=== PATIENT | female | born 1950 | race Caucasian/White ===

== ENCOUNTER 2016-07-11 21:11 | Emergency (ER) | payer MEDICARE ==
--- NOTE | 2016-07-11 21:45 | ERPHSYRPT ---
- History of Present Illness Time Seen by Provider: 07/11/16 21:29 Source: patient Patient Subjective Stated Complaint: Pt was seen at [facility] for HTN and fall. Pt was discharged, sts when she got home she could not get in the house so she called the ambulance because she "could not get my feet to work". Sts unable to walk into house with granddaughters assistance. Sts weakness since last night. Sts unable to pick her feet up to walk. No new complaints since discharge from [facility]. Sts headache 05/30, which is "normal for her". Sts has been out of blood pressure medication x 6 weeks. Triage Nursing Assessment: Pt alert, oriented, answers all questions appropriately. Skin p/w/d, resps non-labored. Speaking in full sentences without difficulty. Follows all commands. Physician History: This is a 66-year-old white female with history of diverticulitis, diabetes She arrives via medics According to the patient she was at her home this morning she fell hit her head on the refrigerator he states that she's been having weakness of her lower extremities since falling and hitting her head. She was seen at [facility] given medicines for high blood pressure, apparently clonidine she states that she had just left [facility] had taken an ambulance to her home was trying to get in the house and could not get into it she was unable to get in the house with assistance from her granddaughter. She states she feels weak on her lower extremities she states that this has been going on since this morning. She is not having problems moving any of her extremities she is not having any problems speaking. She is noted to have an elevated blood pressure she states that she does not have any blood pressure medications at home and is unable to get them. Patient does state she has a headache. Past medical history includes diabetes, diverticulitis. Past surgical history includes appendectomy, cholecystectomy, colon severe resection, hysterectomy. Timing/Duration: today (patient fell at home states she is weak in her lower extremities seen at [facility], treated for high blood pressure released. Unable to get into her house when returning home.) Severity: moderate Modifying Factors: Improves With: nothing Associated Symptoms: headaches, weakness (weakness lower extremities), No nausea , No vomiting, No abdominal pain, No shortness of breath, No heartburn, No diaphoresis, No cough, No chills, No chest pain, No fever, No loss of appetite, No malaise, No rash, No syncope, No seizure Allergies/Adverse Reactions: diazepam [From Valium] Allergy (Mild, Verified 07/11/16 21:20) penicillin Allergy (Mild, Verified 07/11/16 21:20) Home Medications: Furosemide [Lasix] 0 mg PO DAILY 09/14/14 [History] Metformin HCl [Fortamet] 0 mg PO DAILY 09/14/14 [History] Verapamil HCl [Verapamil ER] 180 mg PO DAILY 09/14/14 [History] Hx Tetanus, Diphtheria Vaccination/Date Given: No Hx Influenza Vaccination/Date Given: No Hx Pneumococcal Vaccination/Date Given: No Immunizations Up to Date: Yes - Review of Systems Constitutional: Weakness (weakness lower extremities no problems moving or speaking), No Fever, No Chills Eyes: No Symptoms, No Discharge, No Eye Pain, No Eye Redness, No Itchy, No Photophobia, No Tearing, No Vision Changes, No Double Vision, No Foreign Body Sensation Ears, Nose, & Throat: No Symptoms Respiratory: No Cough, No Dyspnea Abdominal/Gastrointestinal: No Abdominal Pain, No Nausea, No Vomiting, No Diarrhea Genitourinary Symptoms: No Dysuria Musculoskeletal: No Back Pain, No Neck Pain Skin: No Rash Neurological: Focal Weakness (weak lower extremities no problems moving or speaking), Headache, No Dizziness, No Gait Changes, No Irritability, No Lethargy , No Paralysis, No Parasthesia, No Seizure, No Sensory Changes, No Speech Changes, No Tics, No Tremors, No Vertigo Psychological: No Symptoms Endocrine: No Symptoms All Other Systems: Reviewed and Negative - Past Medical History Pertinent Past Medical History: Yes Cardiac History: High Cholesterol, Hypertension, Other Endocrine Medical History: Diabetes Type II GI Medical History: Diverticulitis - Past Surgical History Past Surgical History: Yes Gastrointestinal: Appendectomy, Cholecystectomy, Colon Resection Female Surgical History: Hysterectomy - Social History Smoking Status: Never smoker Exposure to second hand smoke: No Drug Use: none Patient Lives Alone: Yes - Nursing Vital Signs Nursing Vital Signs: Initial Vital Signs Temperature 97.9 F Temperature Source Oral Pulse Rate 74 Respiratory Rate 16 Blood Pressure [Left Arm] 175/112 Pain Intensity 4 - Physical Exam General Appearance: other (elderly obese white female alert oriented x 3) Eye Exam: PERRL/EOMI, eyes nml inspection Ears, Nose, Throat Exam: normal ENT inspection, TMs normal, pharynx normal, moist mucous membranes Neck Exam: normal inspection, non-tender, supple, full range of motion Respiratory Exam: normal breath sounds, lungs clear, No respiratory distress Cardiovascular Exam: regular rate/rhythm, normal heart sounds, normal peripheral pulses Gastrointestinal/Abdomen Exam: soft, normal bowel sounds, No tenderness, No mass Back Exam: normal inspection, normal range of motion, No CVA tenderness, No vertebral tenderness Extremity Exam: normal inspection, normal range of motion, pelvis stable Neurologic Exam: alert, oriented x 3, cooperative, normal mood/affect, nml cerebellar function, nml station & gait, sensation nml, No motor deficits Skin Exam: normal color, warm, dry, No rash Lymphatic Exam: No adenopathy SpO2 Interpretation: normal (97%) SpO2: 97 Oxygen Delivery: Room Air - Course Nursing assessment & vital signs reviewed: Yes Ordered Tests: Active Orders 24 hr Category Date Time Status Accucheck STAT Care 07/11/16 21:46 Active EKG-ER Only STAT Care 07/11/16 21:45 Active IV Insertion STAT Care 07/11/16 21:45 Active CBC W DIFF Stat Lab 07/11/16 22:00 Completed CMP Stat Lab 07/11/16 22:00 Completed TROPONIN Stat Lab 07/11/16 22:00 Completed Medication Summary Discontinued Medications Generic Name Dose Route Start Last Admin Trade Name Freq PRN Reason Stop Dose Admin Sodium Chloride 1,000 mls @ 50 mls/hr 07/11/16 22:00 07/11/16 21:56 Sodium Chloride 0.9% 1000 Ml IV 08/10/16 21:59 50 mls/hr .Q20H DELBERT Administration Sodium Chloride Confirm 07/11/16 21:54 Sodium Chloride 0.9% 1000 Ml Administered 07/11/16 21:55 Dose 1,000 mls @ ud .ROUTE .STK-MED ONE Potassium Chloride 40 meq 07/11/16 23:10 07/11/16 23:21 Klor Con 10 Meq PO 07/11/16 23:11 40 meq STAT ONE Administration Potassium Chloride Confirm 07/11/16 23:20 Klor Con 10 Meq Administered 07/11/16 23:21 Dose 40 meq PO .STK-MED ONE Lab/Rad Data: Laboratory Result Diagrams 07/11/16 22:00 07/11/16 22:00 Laboratory Results 07/11/16 07/11/16 Range/Units 22:00 22:00 WBC 12.5 H (4.0-10.5) K/mm3 RBC 4.97 (4.1-5.4) M/mm3 Hgb 14.0 (12.0-16.0) gm/dl Hct 42.1 (35-47) % MCV 84.7 (78-100) fl MCH 28.2 (26-32) pg MCHC 33.3 (32-36) g/dl RDW 14.3 H (11.5-14.0) % Plt Count 322 (150-450) K/mm3 MPV 10.3 H (6-9.5) fl Gran % 77.1 H (36.0-66.0) % Lymphocytes % 16.0 L (24.0-44.0) % Monocytes % 5.6 (0.0-12.0) % Eosinophils % 1.1 (0.00-5.0) % Basophils % 0.2 (0.0-0.4) % Basophils # 0.03 (0-0.4) Sodium 141 (136-145) mEq/L Potassium 3.1 L (3.5-5.1) mEq/L Chloride 100 (98-107) mEq/L Carbon Dioxide 29.0 (21-32) mEq/L Anion Gap 15.1 H (5-15) MEQ/L BUN 9 (9-20) mg/dL Creatinine 0.94 (0.55-1.30) mg/dl Estimated GFR > 60 ML/MIN Glucose 178 H (70-110) MG/DL Calcium 9.6 (8.5-10.1) mg/dL Total Bilirubin 0.8 (0.2-1.0) mg/dL AST 35 (15-37) U/L ALT 33 (12-78) U/L Alkaline Phosphatase 100 (46-116) U/L Troponin I < 0.017 (0.000-0.056) ng/ml Serum Total Protein 7.1 (6.4-8.2) gm/dL Albumin 3.6 (3.4-5.0) g/dL - Progress Progress: improved Progress Note: 07/11/16 21:44 This is a 66-year-old white female she was seen at [facility] ER today secondary to a fall she is having bilateral lower extremity weakness which has been going on since this morning she states that she was treated for her high blood pressure at the [facility] labs and head CT were obtained. Patient was discharged in when the patient went to get into her house she is unable to get into her house even with help from her granddaughter. Patient states she feels weak in in her lower legs. She is not having any problems moving she has a normal neurologic exam. She does have elevated blood pressure. Will go ahead and obtain labs from [facility] Will obtain repeat the EKG CBC CMP. Will obtain head CT results from [facility]. 07/11/16 23:03 Patient's labs are reviewed from [facility] head CT was unremarkable chest x-ray was unremarkable. will be given potassium patient was noted have a potassium of 3.1 otherwise chemistry essentially normal troponin was within normal limits CBC essentially normal EKG normal sinus rhythm [address] or T wave changes are noted. Patient's blood pressure improved with time patient had been given some clonidine at [facility]. I've discussed the patient's case with Dr. Harris the patient's family doctor he will accept the patient for transfer at [facility]. Diagnosis Will be weakness. Accidental fall with head contusion. Lower extremity weakness. Hypertension. Patient's blood pressure slowly improve therefore further blood pressure medications was not given in this emergency room. - Departure Time of Disposition: 23:05 Departure Disposition: Transfer ([facility], Dr Harris) Clinical Impression: Weakness, Bilateral leg weakness Accidental fall Qualifiers: Encounter type: initial encounter Qualified Code(s): W19.XXXA - Unspecified fall, initial encounter Head contusion Qualifiers: Encounter type: subsequent encounter Contusion of head detail: unspecified part of head Qualified Code(s): S00.93XD - Contusion of unspecified part of head , subsequent encounter Hypertension Qualifiers: Hypertension type: unspecified secondary hypertension Qualified Code(s): I15.9 - Secondary hypertension, unspecified Condition: Fair Critical Care Time: No Referrals: KVNG HARRIS [Primary Care Provider] -
[2016-07-11] MEDS ORDERED: Sodium Chloride 0.9% 1000 ML 1,000 ML ONE (21:54)
[2016-07-11] MEDS ORDERED: Sodium Chloride 0.9% 1000 ML 1,000 ML IV SCH (22:00)
[2016-07-11 22:03] LABS: BASOPHIL % 0.2 % (0.0-0.4); Eosinophil % 1.1 % (0.00-5.0); Granulocytes % 77.1 % (36.0-66.0); Mean Cell Volume 84.7 fl (78-100); Mean Corpuscular Hemoglobin 28.2 pg (26-32); Mean Platelet Volume 10.3 fl (6-9.5); Monocytes % 5.6 % (0.0-12.0); Platelet Count 322 K/mm3 (150-450); Red Blood Count 4.97 M/mm3 (4.1-5.4); Red Cell Distribution Width 14.3 % (11.5-14.0); White Blood Count 12.5 K/mm3 (4.0-10.5)
[2016-07-11 22:27] LABS: ALBUMIN 3.6 g/dL (3.4-5.0); ALKALINE PHOSPHATASE 100 U/L (46-116); ANION GAP 15.1 MEQ/L (5-15); BILIRUBIN,TOTAL 0.8 mg/dL (0.2-1.0); BLOOD UREA NITROGEN 9 mg/dL (9-20); CHLORIDE 100 mEq/L (98-107); Glucose 178 MG/DL (70-110); Potassium 3.1 mEq/L (3.5-5.1); SGOT/AST 35 U/L (15-37); SGPT/ALT 33 U/L (12-78); SODIUM 141 mEq/L (136-145); Total Protein 7.1 gm/dL (6.4-8.2)
[2016-07-11 22:30] LABS: TROPONIN < 0.017 ng/ml (0.000-0.056)
[2016-07-11] MEDS ORDERED: Klor Con 10 MEQ PO ONE ×2 (23:10→23:20)
[2016-07-11 23:39] VITALS: BP 175/112; PULSE 74
[2016-07-12 00:05] VITALS: O2SAT 97
== END 2016-07-11 23:40 | disposition short-term general hospital (02) ==
LOC: ED 21:11
DX: S00.93XD Contusion of unspecified part of head, subsequent encounter (principal); W01.198D Fall on same level from slipping, tripping and stumbling with subsequent striking against other object, subsequent encounter; I10 Essential (primary) hypertension; R53.1 Weakness; R51 Headache; E78.00 Pure hypercholesterolemia, unspecified; E11.9 Type 2 diabetes mellitus without complications
CPT/HCPCS: 36000; 36415; 80053; 82962; 84484; 85025; 93005; 96360; 96361; 99285; A9270-GY

== ENCOUNTER 2020-01-01 20:06 | Emergency (ER) | payer MEDICARE ==
[2020-01-01] MEDS ORDERED: Sodium Chloride 0.9% 1000 ML 1,000 ML IV STA (20:41)
[2020-01-01] MEDS ORDERED: ROCEPHIN 1 Gm-D5w 50 ml Bag** 1 G/50 ML IVPB IV ONE ×2 (21:01→21:04)
[2020-01-01] MEDS ORDERED: Sodium Chloride 0.9% 1000 ML 1,000 ML ONE ×2 (21:04→23:14)
--- NOTE | 2020-01-01 21:04 | ERPHSYRPT ---
- History of Present Illness Source: patient, EMS Exam Limitations: clinical condition Patient Subjective Stated Complaint: Patient's son called EMS and told EMS that he had just got home and that patient was on floor on butt with back against her chair". Patient told son she slid out of chair earlier today but not sure what time and that her back was hurting". Triage Nursing Assessment: Patient arrived via ambulance. Patient alert and very NE[place]. 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 Patient unable to tell RN what meds she takes and when the last time she took meds. Lungs diminshed A/P throughout. + BS times 4 quads. ABD large, obese, non- distended. Patient denies pain or discomfort upon palpitation. Non-pitting edema noted to bilateral extremities. Patient very dirty upon arrival. Patient's feet black and dirty. Patient noted with blanchable red area to outside of right ankle. Patient's bottom red in color. Patient noted with odor. Patient had pull up on that was saturated with urine and BM. Patient's ROM to upper and lower e xtremities decreased which patient says is her normal. Upon inspection of back, no bruising, redness or abnormalities noted. Patient stated she does have tenderness when RN touched. + radial and pedal pulses noted. Patient denies SOB/chest pain. No S/S of respiratory distress noted. Oral mucosa dirty, dry. Skin turgor < 4 seconds. Cap refill < 3 seconds. Patient denies any further pain or discomfort. Bilateral pupils brisk and reactive to light. 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 Physician History: Patient is a 69-year-old female who was brought in by ambulance for fall. Patient was found on the ground by her son who called 911. Unsure how long patient has been on the ground. Appears patient was extremely disheveled and dirty. It appears that patient has not bathed or showered in a very long time. Patient would occasionally answer questions which might be difficult for her due to her hard of hearing. Patient appears confused but is alert. Occurred: just prior to arrival Reason for Fall: unknown Injuries/Pain Location: back Loss of Consciousness: unsure Quality: aching Modifying Factors: Improves With: movement Associated Symptoms (Fall): denies symptoms Allergies/Adverse Reactions: diazepam [From Valium] Allergy (Mild, Verified 01/01/20 21:00) penicillin Allergy (Mild, Verified 01/01/20 21:00) Home Medications: Furosemide [Lasix] 0 mg PO DAILY 09/14/14 [History] Metformin HCl [Fortamet] 0 mg PO DAILY 09/14/14 [History] Verapamil HCl [Verapamil ER] 180 mg PO DAILY 09/14/14 [History] Hx Tetanus, Diphtheria Vaccination/Date Given: No Hx Influenza Vaccination/Date Given: No Hx Pneumococcal Vaccination/Date Given: No Immunizations Up to Date: Yes Travel Risk - International Travel Have you traveled outside of the country in past 3 weeks: No - Coronavirus Screening Are you exhibiting any of the following symptoms?: No Close contact with a COVID-19 positive Pt in past 14-21 Days: No - Review of Systems Constitutional: No Fever, No Chills Eyes: No Symptoms Ears, Nose, & Throat: No Symptoms Respiratory: No Cough, No Dyspnea Cardiac: No Chest Pain, No Edema, No Syncope Abdominal/Gastrointestinal: No Abdominal Pain, No Nausea, No Vomiting, No Diarrhea Genitourinary Symptoms: No Dysuria Musculoskeletal: Back Pain, Myalgias, No Neck Pain Skin: No Rash Neurological: Headache, No Dizziness, No Focal Weakness, No Sensory Changes Psychological: No Symptoms Endocrine: No Symptoms All Other Systems: Reviewed and Negative - Past Medical History Pertinent Past Medical History: Yes Neurological History: No Pertinent History ENT History: No Pertinent History Cardiac History: High Cholesterol, Hypertension, Other Respiratory History: No Pertinent History Endocrine Medical History: Diabetes Type II Musculoskeletal History: No Pertinent History GI Medical History: Diverticulitis History: No Pertinent History Psycho-Social History: No Pertinent History Female Reproductive Disorders: No Pertinent History - Past Surgical History Past Surgical History: Yes Neuro Surgical History: No Pertinent History Cardiac: No Pertinent History Respiratory: No Pertinent History Gastrointestinal: Appendectomy, Cholecystectomy, Colon Resection Genitourinary: No Pertinent History Musculoskeletal: No Pertinent History Female Surgical History: Hysterectomy - Social History Smoking Status: Never smoker Exposure to second hand smoke: No Drug Use: none Patient Lives Alone: No - Female History Hx Last Menstrual Period: POST - Nursing Vital Signs Nursing Vital Signs: Initial Vital Signs Temperature 100.0 F 01/01/20 20:15 Pulse Rate 118 H 01/01/20 20:15 Respiratory Rate 22 01/01/20 20:15 Blood Pressure 194/94 01/01/20 20:15 O2 Sat by Pulse Oximetry 95 01/01/20 20:15 Pain Scale Pain Intensity 4 - [place] Coma Score Best Eye Response (Sabina): (4) open spontaneously Best Verbal Response ([place]): (4) confused conversation Best Motor Response (Sabina): (6) obeys commands Sabina Total: 14 - Physical Exam General Appearance: mild distress, alert Head Injury: no evidence of injury Eye Exam: PERRL/EOMI ENT Exam: airway nml Neck Exam: normal inspection, No tenderness Respiratory/Chest Exam: normal breath sounds, No chest tenderness, No respiratory distress Cardiovascular Exam: normal heart sounds, regular rate/rhythm Gastrointestinal Exam: soft, No tenderness, No distention, No guarding, No ecchymosis Back Exam: normal inspection, No vertebral tenderness Extremity Exam: normal inspection, normal range of motion, pelvis stable, No deformities Neurologic Exam: alert, oriented x 3, cooperative, sensation nml, No motor deficits Skin Exam: normal color, warm, dry SpO2 Interpretation: normal SpO2: 95 - Course Nursing assessment & vital signs reviewed: Yes EKG Interpreted by Me: Sinus Tach ([id number]), NORMAL AXIS, NORMAL INTERVALS, NORMAL QRS, Non-specific ST Changes - CT Exams Head CT Interpretation: Tele-radiologist Report, No/Intracranial Hemorrhag, Other (Infarcted area of the left MCA distribution is a possibility versus rotation of head and possible volume depletion.) Cervical Spine CT Interpretation: Tele-radiologist Report, No Fracture Chest CT Interpretation: Tele-radiologist Report, Other (Couple right upper lobe pulmonary emboli and suspected small right middle and lower lobe PE) Abdomen/Pelvis CT Interpretation: Tele-radiologist Report, Normal Appendix, No appendicitis Ordered Tests: Active Orders 24 hr Category Date Time Status Chiller Tender STAT Care 01/01/20 21:35 Active EKG-ER Only STAT Care 01/01/20 20:41 Active Guzmán [Catheter-[place] Guzmán] STAT Care 01/01/20 21:35 Active IV Insertion STAT Care 01/01/20 20:41 Active IV Insertion-2nd Peripheral STAT Care 01/01/20 21:35 Active ABDOMEN AND PELVIS W CONTRAST [CT] Stat Exams 01/01/20 20:45 Taken CERVICAL SPINE WO CONTRAST [CT] Stat Exams 01/01/20 20:43 Taken CHEST WITH CONTRAST [CT] Stat Exams 01/01/20 20:45 Taken HEAD WITHOUT CONTRAST [CT] Stat Exams 01/01/20 20:43 Taken BLOOD CULTURE Stat Lab 01/01/20 21:20 Received CBC W DIFF Stat Lab 01/01/20 21:30 Completed CK (IN-HOUSE) [CK-Creatinine Phosphokinase] Stat Lab 01/01/20 21:30 Completed CMP Stat Lab 01/01/20 21:30 Completed CULTURE,URINE Stat Lab 01/01/20 21:33 Received D-DIMER QUANTITATIVE Stat Lab 01/01/20 21:30 Completed INFLUENZA A+B JAS Stat Lab 01/01/20 23:15 Completed LIPASE Stat Lab 01/01/20 21:30 Completed Lactic Acid Stat Lab 01/01/20 21:23 Completed PROTIME WITH INR Stat Lab 01/01/20 21:30 Completed PTT Stat Lab 01/01/20 21:30 Completed TROPONIN Q3H Lab 01/01/20 21:00 Completed UA W/RFX UR CULTURE Stat Lab 01/01/20 21:33 Completed Medication Summary Generic Name Dose Route Start Last Admin Trade Name Rob PRN Reason Stop Dose Admin Sodium Chloride 1,000 mls @ 175 mls/hr 01/01/20 23:00 01/01/20 23:16 Sodium Chloride 0.9% 1000 Ml IV 01/31/20 22:59 175 mls/hr .Q5H43M DELBERT Administration Heparin Sodium/Dextrose 25,000 units in 250 mls @ 25 mls/hr 01/02/20 02:00 01/02/20 02:04 Heparin 25,000 Units/D5w 250ml Premix IV 02/01/20 01:59 25 mls/hr .Q10H DELBERT 25 mls/hr Administration Discontinued Medications Generic Name Dose Route Start Last Admin Trade Name Rob PRN Reason Stop Dose Admin Acetaminophen 975 mg 01/01/20 22:58 01/01/20 23:03 Feverall 650 Mg AR 01/01/20 22:59 975 mg STAT ONE Administration Acetaminophen Confirm 01/01/20 23:02 Feverall 650 Mg Administered 01/01/20 23:03 Dose 1,300 mg .ROUTE .STK-MED ONE Heparin Sodium (Beef Lung) Confirm 01/02/20 01:52 Heparin Lock Flush 100 Units/Ml 5ml Syringe Administered 01/02/20 01:53 Dose 1,000 units .ROUTE .STK-MED ONE Heparin Sodium (Beef Lung) Confirm 01/02/20 02:08 Heparin 5000 Units/0.5 Ml (High Risk Med) Administered 01/02/20 02:09 Dose 5,000 unit .ROUTE .STK-MED ONE Heparin Sodium (Beef Lung) Confirm 01/02/20 02:08 Heparin 5000 Units/0.5 Ml (High Risk Med) Administered 01/02/20 02:09 Dose 5,000 unit .ROUTE .STK-MED ONE Heparin Sodium (Beef Lung) Confirm 01/02/20 02:17 Heparin 5000 Units/0.5 Ml (High Risk Med) Administered 01/02/20 02:18 Dose 5,000 unit .ROUTE .STK-MED ONE Heparin Sodium (Porcine) 11,200 u 01/02/20 01:42 01/02/20 02:20 Heparin 1000 Units/Ml (10 Ml Vial) IV 01/02/20 01:43 11,200 u ONCE ONE Administration Sodium Chloride 1,000 mls @ 999 mls/hr 01/01/20 20:41 01/01/20 22:09 Sodium Chloride 0.9% 1000 Ml IV 01/01/20 21:41 Infused .Q1H1M STA Infusion Ceftriaxone Sodium/Dextrose 1 g in 50 mls @ 100 mls/hr 01/01/20 21:01 01/01/20 21:53 Rocephin 1 Gm-D5w 50 Ml Bag IV 01/01/20 21:30 Infused STAT ONE Infusion Sodium Chloride Confirm 01/01/20 21:04 Sodium Chloride 0.9% 1000 Ml Administered 01/01/20 21:05 Dose 1,000 mls @ ud .ROUTE .STK-MED ONE Ceftriaxone Sodium/Dextrose Confirm 01/01/20 21:04 Rocephin 1 Gm-D5w 50 Ml Bag Administered 01/01/20 21:05 Dose 1 g in 50 mls @ ud IV .STK-MED ONE Lab/Rad Data: Laboratory Result Diagrams 01/01/20 21:30 01/01/20 21:30 Laboratory Results 01/02/20 01/01/20 01/01/20 Range/Units 00:57 23:15 21:33 WBC (4.0-10.5) K/mm3 RBC (4.1-5.4) M/mm3 Hgb (12.0-16.0) gm/dl Hct (35-47) % MCV (78-100) fl MCH (26-32) pg MCHC (32-36) g/dl RDW (11.5-14.0) % Plt Count (150-450) K/mm3 MPV (7.5-11.0) fl Gran % (36.0-66.0) % Eos # (Auto) (0-0.5) Absolute Lymphs (auto) (1.0-4.6) Absolute Monos (auto) (0.0-1.3) Lymphocytes % (24.0-44.0) % Monocytes % (0.0-12.0) % Eosinophils % (0.00-5.0) % Basophils % (0.0-0.4) % Absolute Granulocytes (1.4-6.9) Basophils # (0-0.4) PT (9.95-12.35) SECONDS INR (0.8-3.0) APTT (25.3-37.0) SECONDS D-Dimer (215-500) ng/mL Sodium (137-145) mmol/L Potassium (3.5-5.1) mmol/L Chloride (98-107) mmol/L Carbon Dioxide (22-30) mmol/L Anion Gap (5-15) MEQ/L BUN (7-17) mg/dL Creatinine (0.52-1.04) mg/dL Estimated GFR ML/MIN Glucose (74-106) mg/dL Lactic Acid (0.4-2.0) Calcium (8.4-10.2) mg/dL Total Bilirubin (0.2-1.3) mg/dL AST (14-36) U/L ALT (0-35) U/L Alkaline Phosphatase (38-126) U/L Creatine Kinase (30-135) U/L Troponin I (0.000-0.034) ng/mL Serum Total Protein (6.3-8.2) g/dL Albumin (3.5-5.0) g/dL Lipase (23-300) U/L Urine Color YELLOW (YELLOW) Urine Appearance CLEAR (CLEAR) Urine pH 7.0 (5-6) Ur Specific [place] 1.012 (1.005-1.025) Urine Protein 100 (Negative) Urine Ketones NEGATIVE (NEGATIVE) Urine Blood SMALL (0-5) Joshua/ul Urine Nitrite NEGATIVE (NEGATIVE) Urine Bilirubin NEGATIVE (NEGATIVE) Urine Urobilinogen NEGATIVE (0-1) mg/dL Ur Leukocyte Esterase NEGATIVE (NEGATIVE) Urine WBC (Auto) NONE (0-5) /HPF Urine RBC (Auto) 3-5 (0-2) /HPF U Epithel Cells (Auto) NONE (FEW) /HPF Urine Bacteria (Auto) NONE (NEGATIVE) /HPF Urine Mucus (Auto) SLIGHT (NEGATIVE) /HPF Urine Culture Reflexed YES (NO) Urine Glucose NEGATIVE (NEGATIVE) mg/dL Influenza Type A Ag NEGATIVE (NEGATIVE) Influenza Type B Ag NEGATIVE (NEGATIVE) SARS-CoV-2 (PCR) POSITIVE A (NEGATIVE) 01/01/20 01/01/20 01/01/20 Range/Units 21:30 21:30 21:30 WBC (4.0-10.5) K/mm3 RBC (4.1-5.4) M/mm3 Hgb (12.0-16.0) gm/dl Hct (35-47) % MCV (78-100) fl MCH (26-32) pg MCHC (32-36) g/dl RDW (11.5-14.0) % Plt Count (150-450) K/mm3 MPV (7.5-11.0) fl Gran % (36.0-66.0) % Eos # (Auto) (0-0.5) Absolute Lymphs (auto) (1.0-4.6) Absolute Monos (auto) (0.0-1.3) Lymphocytes % (24.0-44.0) % Monocytes % (0.0-12.0) % Eosinophils % (0.00-5.0) % Basophils % (0.0-0.4) % Absolute Granulocytes (1.4-6.9) Basophils # (0-0.4) PT 14.4 H (9.95-12.35) SECONDS INR 1.27 (0.8-3.0) APTT 39.0 H (25.3-37.0) SECONDS D-Dimer 2512 H* (215-500) ng/mL Sodium (137-145) mmol/L Potassium (3.5-5.1) mmol/L Chloride (98-107) mmol/L Carbon Dioxide (22-30) mmol/L Anion Gap (5-15) MEQ/L BUN (7-17) mg/dL Creatinine (0.52-1.04) mg/dL Estimated GFR ML/MIN Glucose (74-106) mg/dL Lactic Acid (0.4-2.0) Calcium (8.4-10.2) mg/dL Total Bilirubin (0.2-1.3) mg/dL AST (14-36) U/L ALT (0-35) U/L Alkaline Phosphatase (38-126) U/L Creatine Kinase 262 H (30-135) U/L Troponin I (0.000-0.034) ng/mL Serum Total Protein (6.3-8.2) g/dL Albumin (3.5-5.0) g/dL Lipase (23-300) U/L Urine Color (YELLOW) Urine Appearance (CLEAR) Urine pH (5-6) Ur Specific [place] (1.005-1.025) Urine Protein (Negative) Urine Ketones (NEGATIVE) Urine Blood (0-5) Joshua/ul Urine Nitrite (NEGATIVE) Urine Bilirubin (NEGATIVE) Urine Urobilinogen (0-1) mg/dL Ur Leukocyte Esterase (NEGATIVE) Urine WBC (Auto) (0-5) /HPF Urine RBC (Auto) (0-2) /HPF U Epithel Cells (Auto) (FEW) /HPF Urine Bacteria (Auto) (NEGATIVE) /HPF Urine Mucus (Auto) (NEGATIVE) /HPF Urine Culture Reflexed (NO) Urine Glucose (NEGATIVE) mg/dL Influenza Type A Ag (NEGATIVE) Influenza Type B Ag (NEGATIVE) SARS-CoV-2 (PCR) (NEGATIVE) 01/01/20 01/01/20 01/01/20 Range/Units 21:30 21:30 21:23 WBC 12.9 H (4.0-10.5) K/mm3 RBC 5.17 (4.1-5.4) M/mm3 Hgb 14.0 (12.0-16.0) gm/dl Hct 42.4 (35-47) % MCV 82.0 (78-100) fl MCH 27.1 (26-32) pg MCHC 33.0 (32-36) g/dl RDW 15.0 H (11.5-14.0) % Plt Count 334 (150-450) K/mm3 MPV 10.4 (7.5-11.0) fl Gran % 83.2 H (36.0-66.0) % Eos # (Auto) 0.01 (0-0.5) Absolute Lymphs (auto) 0.99 L (1.0-4.6) Absolute Monos (auto) 1.14 (0.0-1.3) Lymphocytes % 7.7 L (24.0-44.0) % Monocytes % 8.8 (0.0-12.0) % Eosinophils % 0.1 (0.00-5.0) % Basophils % 0.2 (0.0-0.4) % Absolute Granulocytes 10.73 H (1.4-6.9) Basophils # 0.02 (0-0.4) PT (9.95-12.35) SECONDS INR (0.8-3.0) APTT (25.3-37.0) SECONDS D-Dimer (215-500) ng/mL Sodium 132 L (137-145) mmol/L Potassium 3.6 (3.5-5.1) mmol/L Chloride 95 L (98-107) mmol/L Carbon Dioxide 28 (22-30) mmol/L Anion Gap 12.9 (5-15) MEQ/L BUN 13 (7-17) mg/dL Creatinine 0.68 (0.52-1.04) mg/dL Estimated GFR > 60.0 ML/MIN Glucose 177 H (74-106) mg/dL Lactic Acid 1.6 (0.4-2.0) Calcium 9.2 (8.4-10.2) mg/dL Total Bilirubin 1.00 (0.2-1.3) mg/dL AST 34 (14-36) U/L ALT 19 (0-35) U/L Alkaline Phosphatase 95 (38-126) U/L Creatine Kinase (30-135) U/L Troponin I (0.000-0.034) ng/mL Serum Total Protein 7.7 (6.3-8.2) g/dL Albumin 4.3 (3.5-5.0) g/dL Lipase 109 (23-300) U/L Urine Color (YELLOW) Urine Appearance (CLEAR) Urine pH (5-6) Ur Specific [place] (1.005-1.025) Urine Protein (Negative) Urine Ketones (NEGATIVE) Urine Blood (0-5) Joshua/ul Urine Nitrite (NEGATIVE) Urine Bilirubin (NEGATIVE) Urine Urobilinogen (0-1) mg/dL Ur Leukocyte Esterase (NEGATIVE) Urine WBC (Auto) (0-5) /HPF Urine RBC (Auto) (0-2) /HPF U Epithel Cells (Auto) (FEW) /HPF Urine Bacteria (Auto) (NEGATIVE) /HPF Urine Mucus (Auto) (NEGATIVE) /HPF Urine Culture Reflexed (NO) Urine Glucose (NEGATIVE) mg/dL Influenza Type A Ag (NEGATIVE) Influenza Type B Ag (NEGATIVE) SARS-CoV-2 (PCR) (NEGATIVE) 01/01/20 Range/Units 21:00 WBC (4.0-10.5) K/mm3 RBC (4.1-5.4) M/mm3 Hgb (12.0-16.0) gm/dl Hct (35-47) % MCV (78-100) fl MCH (26-32) pg MCHC (32-36) g/dl RDW (11.5-14.0) % Plt Count (150-450) K/mm3 MPV (7.5-11.0) fl Gran % (36.0-66.0) % Eos # (Auto) (0-0.5) Absolute Lymphs (auto) (1.0-4.6) Absolute Monos (auto) (0.0-1.3) Lymphocytes % (24.0-44.0) % Monocytes % (0.0-12.0) % Eosinophils % (0.00-5.0) % Basophils % (0.0-0.4) % Absolute Granulocytes (1.4-6.9) Basophils # (0-0.4) PT (9.95-12.35) SECONDS INR (0.8-3.0) APTT (25.3-37.0) SECONDS D-Dimer (215-500) ng/mL Sodium (137-145) mmol/L Potassium (3.5-5.1) mmol/L Chloride (98-107) mmol/L Carbon Dioxide (22-30) mmol/L Anion Gap (5-15) MEQ/L BUN (7-17) mg/dL Creatinine (0.52-1.04) mg/dL Estimated GFR ML/MIN Glucose (74-106) mg/dL Lactic Acid (0.4-2.0) Calcium (8.4-10.2) mg/dL Total Bilirubin (0.2-1.3) mg/dL AST (14-36) U/L ALT (0-35) U/L Alkaline Phosphatase (38-126) U/L Creatine Kinase (30-135) U/L Troponin I 0.016 (0.000-0.034) ng/mL Serum Total Protein (6.3-8.2) g/dL Albumin (3.5-5.0) g/dL Lipase (23-300) U/L Urine Color (YELLOW) Urine Appearance (CLEAR) Urine pH (5-6) Ur Specific [place] (1.005-1.025) Urine Protein (Negative) Urine Ketones (NEGATIVE) Urine Blood (0-5) Joshua/ul Urine Nitrite (NEGATIVE) Urine Bilirubin (NEGATIVE) Urine Urobilinogen (0-1) mg/dL Ur Leukocyte Esterase (NEGATIVE) Urine WBC (Auto) (0-5) /HPF Urine RBC (Auto) (0-2) /HPF U Epithel Cells (Auto) (FEW) /HPF Urine Bacteria (Auto) (NEGATIVE) /HPF Urine Mucus (Auto) (NEGATIVE) /HPF Urine Culture Reflexed (NO) Urine Glucose (NEGATIVE) mg/dL Influenza Type A Ag (NEGATIVE) Influenza Type B Ag (NEGATIVE) SARS-CoV-2 (PCR) (NEGATIVE) - Progress Progress: improved Progress Note: 01/02/20 02:07 D/w Dr. Cazares at [facility], who accepts pt for transfer. 01/02/20 02:23 Late entry: Given patient's condition, will initiate cardiac work-up/syncope work-up. Given that patient was found on the floor, will also do head CT, C-spine CT as well as CT of chest and abdomen and pelvis with contrast. Labs overall fairly benign except for fairly elevated D-dimer. CT chest reveals multiple right-sided PE both upper, middle and lower lobe. Pt is fairly hemodynamically stable. There is no right heart strain/cor pulmonale. Blood pressure is actually slightly elevated. Patient is still little bit tacky but has now trended down into the 90s. Patient's O2 sats have been running mid 90s on room air. However has developed fever and at the time did not know the etiology of this fever. Patient's CTA chest did not reveal any infectious process and her urine was uninfected as well. At the time of this note patient was found to be Covid positive, influenza negative. Case discussed with ER physician at [facility] who accepts patient for transfer. Will call back and let them know about positive Covid status. Patient will be given heparin bolus along with maintenance drip prior to transpo rt. Discussed all results with son who is in agreement with transfer to [facility]. Another neural exam was done prior to transfer and patient able to move all extremities although she is still having some issues following commands. There is no facial droop or dysarthria. - Departure Departure Disposition: Transfer ([facility]) Clinical Impression: Pulmonary embolism associated with COVID-19, Weakness, Accidental fall, COVID- 19 Condition: Stable Critical Care Time: Yes Critical Care Time(excluding separately billable procedures): Critical 75-104 mins Referrals: KVNG WAGGONER [Primary Care Provider] -
[2020-01-01 21:43] LABS: Absolute Neutrophil Ct (ANC) 10.73 (1.4-6.9); BASOPHIL % 0.2 % (0.0-0.4); Basophil (Absolute #) 0.02 (0-0.4); Eosinophil % 0.1 % (0.00-5.0); Eosinophil (Absolute #) 0.01 (0-0.5); Hematocrit 42.4 % (35-47); Lymphocyte (Absolute #) 0.99 (1.0-4.6); Lymphocytes % 7.7 % (24.0-44.0); Mean Corpuscular Hemoglobin 27.1 pg (26-32); Mean Platelet Volume 10.4 fl (7.5-11.0); Monocyte (Absolute #) 1.14 (0.0-1.3); Monocytes % 8.8 % (0.0-12.0); Neutrophil % 83.2 % (36.0-66.0); Platelet Count 334 K/mm3 (150-450); Red Blood Count 5.17 M/mm3 (4.1-5.4); White Blood Count 12.9 K/mm3 (4.0-10.5)
[2020-01-01 21:48] LABS: Appearance CLEAR (CLEAR); Bilirubin NEGATIVE (NEGATIVE); Blood SMALL Ery/ul (0-5); Glucose NEGATIVE (NEGATIVE); Ketones NEGATIVE (NEGATIVE); Leukocyte Esterase NEGATIVE (NEGATIVE); Mucus SLIGHT /HPF (NEGATIVE); Nitrite NEGATIVE (NEGATIVE); Protein,Urine Dip 100 (Negative); Specific Gravity 1.012 (1.005-1.025); Urobilinogen NEGATIVE mg/dL (0-1)
[2020-01-01 21:57] LABS: INR 1.27 (0.8-3.0); PROTIME 14.4 SECONDS (9.95-12.35)
[2020-01-01 22:13] LABS: ALBUMIN 4.3 g/dL (3.5-5.0); ALKALINE PHOSPHATASE 95 U/L (38-126); ANION GAP 12.9 MEQ/L (5-15); BLOOD UREA NITROGEN 13 mg/dL (7-17); CHLORIDE 95 mmol/L (98-107); Calcium 9.2 mg/dL (8.4-10.2); Carbon Dioxide 28 mmol/L (22-30); Creatinine 1 0.68 mg/dL (0.52-1.04); EST GLOMERULAR FILTRATION RATE > 60.0 ML/MIN; Glucose 177 mg/dL (74-106); LIPASE 109 U/L (23-300); Potassium 3.6 mmol/L (3.5-5.1); SGOT/AST 34 U/L (14-36); SGPT/ALT 19 U/L (0-35); SODIUM 132 mmol/L (137-145); Total Protein 7.7 g/dL (6.3-8.2)
[2020-01-01] MEDS ORDERED: FEVERALL 650 MG PR ONE (22:58)
[2020-01-01] MEDS ORDERED: Sodium Chloride 0.9% 1000 ML 1,000 ML IV SCH (23:00)
[2020-01-01] MEDS ORDERED: FEVERALL 650 MG ONE (23:02)
[2020-01-01 23:54] LABS: INFLUENZA A NEGATIVE (NEGATIVE); INFLUENZA B NEGATIVE (NEGATIVE)
[2020-01-02] MEDS ORDERED: HEPARIN 1000 UNIT/ML IV ONE (01:42)
[2020-01-02] MEDS ORDERED: Heparin 25,000 units/D5W 250ML PREMIX 25,000 UNITS/250 ML BAG IV ONE (01:53)
[2020-01-02 01:57] VITALS: O2SAT 95
[2020-01-02] MEDS ORDERED: Heparin 25,000 units/D5W 250ML PREMIX 25,000 UNITS/250 ML BAG IV SCH (02:00)
[2020-01-02] MEDS ORDERED: Heparin 5000 UNITS/0.5 ML (HIGH RISK MED) ONE ×3 (02:08→02:17)
[2020-01-02 02:23] VITALS: BP 181/117
[2020-01-02 03:14] VITALS: PULSE 97
--- NOTE | 2020-01-02 09:08 | XRAY ---
Indication: Acute mental status change. Status post fall. Multiple contiguous axial images obtained through the head without contrast. Comparison: None Age-appropriate global atrophy and moderate periventricular degenerative micro-ischemia bilaterally. No acute intracranial hemorrhage, abnormal extra-axial fluid collection, or mass effect. Fourth ventricle is midline without hydrocephalus. Bony calvarium intact and demonstrates diffuse thickening, either iatrogenic or secondary to antiepileptic therapy. Visualized paranasal sinuses and mastoid air cells are clear. Impression: 1. Aging brain including atrophy and degenerative micro-ischemia. 2. Thickened bony calvarium either iatrogenic or secondary to antiepileptic therapy. 3. No acute intracranial abnormalities. 4. Follow-up CT or MRI may yield further information if there remains clinical concern. Comment: Preliminary interpretation was made by [facility]. No critical discrepancy.
--- NOTE | 2020-01-02 09:10 | XRAY ---
Indication: Acute mental status change. Status post fall. Multiple contiguous axial images obtained through the cervical spine. Sagittal and coronal reformatted images obtained. Comparison: None Axial images negative for acute fracture, suspicious bony lesions, or spinal canal stenosis. Mild/moderate C3-C7 degenerative endplate spurring. Also mild/moderate multilevel bilateral degenerative facet hypertrophy and mild atlantoaxial degenerative arthropathy. Sagittal and coronal reformatted images demonstrates normal alignment with minimal C6-C7 disc space narrowing. No acute compression fracture, subluxation, or jumped facet. Normal appearing craniocervical junction. Visualized noncontrasted soft tissues unremarkable. CT head and CT chest reported separately. Impression: 1. Negative for acute fracture/subluxation. 2. Multilevel degenerative changes. Comment: Preliminary interpretation was made by [facility]. No critical discrepancy.
--- NOTE | 2020-01-02 09:16 | XRAY ---
Indication: Elevated d-dimer. Status post fall. Multiple contiguous axial images obtained through the chest using 80 cc Isovue 370 contrast and PE protocol. Comparison: None There is good opacification of the pulmonary arteries to include the lobar and segmental branches. However marked respiration artifact and beam artifact from patient's arms limits evaluation for pulmonary embolus. Query tiny nonobstructing right upper, right middle, and right lower lobe distal pulmonary emboli. Heart is enlarged. Aorta is normal in course and caliber. No pathologic mediastinal/hilar lymphadenopathy. Lungs demonstrate mild bilateral dependent atelectasis. No focal suspicious pulmonary mass/nodule, infiltrate, or effusion. Bony thorax intact with mild degenerative changes throughout the spine. CT abdomen/pelvis reported separately. Impression: 1. Pulmonary embolus evaluation limited due to respiration and beam artifact. Query tiny nonobstructing right lung pulmonary emboli. 2. Cardiomegaly without CHF. Comment: Preliminary interpretation was made by [facility]. No critical discrepancy.
--- NOTE | 2020-01-02 09:22 | XRAY ---
Indication: Acute mental status change. Status post fall. Back pain. Multiple contiguous axial images obtained through the abdomen and pelvis using 80 cc Isovue 370 contrast only. Comparison: None CT chest reported separately. Study degraded by respiration artifact throughout. Noncontrasted stomach and bowel loops appear nonobstructed. Previous cholecystectomy and hysterectomy. Guzmán catheter empties urinary bladder. No free fluid/air. 2 cm left adrenal gland mass, possible adenoma. Both kidneys enhance and excrete. Left kidney demonstrates a few calculi, largest 1.5 cm mid pole. Also 4.4 cm left lower renal exophytic cyst. Remaining liver, pancreas, spleen right adrenal gland, kidneys, ureters, and bladder appear unremarkable. Mild scattered aortoiliac calcifications. No AAA or pathologic retroperitoneal lymphadenopathy. Osseous structures intact with mild degenerative spondylosis throughout the thoracolumbar spine with minimal dextroscoliosis centered at L3. Impression: 1. Nonobstructing left renal calculi and left renal cyst. 2. 2 cm left adrenal gland mass, possible adenoma. 3. Chronic bony findings. No acute fracture. Comment: Preliminary interpretation was made by [facility]. No critical discrepancy.
== END 2020-01-02 03:10 | disposition short-term general hospital (02) ==
LOC: ED 20:06
DX: I26.99 Other pulmonary embolism without acute cor pulmonale (principal); U07.1 COVID-19; W07.XXXA Fall from chair, initial encounter; R53.1 Weakness; Z79.899 Other long term (current) drug therapy; R51.9 Headache, unspecified; E78.5 Hyperlipidemia, unspecified; I10 Essential (primary) hypertension; E11.9 Type 2 diabetes mellitus without complications
CPT/HCPCS: 51702; 70450; 71260; 72125; 74177; 80053; 81001; 82550; 83605; 83690; 84484; 85025; 85379; 85610; 85730; 87040; 87086; 87400; 93005; 93041; 96360; 96374; 99291; 99292; U0003; 36000; 36415; 99285; J0696; J1642; J1644; A9270-GY

== ENCOUNTER 2020-02-01 14:08 | Observation (INO) | payer MEDICARE ==
[2020-02-01] MEDS ORDERED: BABY ASPIRIN 81 MG CHEW PO ONE (14:24)
--- NOTE | 2020-02-01 14:36 | ERPHSYRPT ---
- History of Present Illness Time Seen by Provider: 02/01/20 14:22 Historian: patient, EMS Exam Limitations: no limitations Patient Subjective Stated Complaint: Pt states "I have had chest pain for the past two days." Triage Nursing Assessment: Pt presented alert and oriented X 3, skin pwd pt ambulates with a slow assited gait, able to speak in clear full sentences pt is extremely hard of hearing. Physician History: 69 years old female with multiple medical problems [place] artery disease status post stenting, congestive heart failure, diabetes mellitus, COVID-19 almost a month ago presented in the ER with 2 days history of substernal chest pain and pressure without any associated palpitations or shortness of breath. She is given aspirin and nitro on the way to the ER by EMS and her pain is much improved. Patient reports having mild shortness of breath and cough at baseline which is not any worse than usual. If she has bilateral lower extremity swelling which is also at baseline. Has subjective feeling of fever and chills. Timing/Duration: day(s) (2), intermittent, improved Activities at Onset: rest Quality: aching, dullness Location: substernal Chest Pain Radiation: no radiation Severity of Pain-Max: mild Severity of Pain-Current: mild Modifying Factors: Improves With: nitroglycerin, aspirin Associated Symptoms: cough, chills, fever, fatigue, edema, No abdominal pain, No shortness of breath Prior Chest Pain/Cardiac Workup: cardiac cath, heart attack Nitro Today/Relief: 0.4 mg x 1 Aspirin Treatment Today: 81 mg x 4 Allergies/Adverse Reactions: diazepam [From Valium] Allergy (Mild, Verified 01/01/20 21:00) penicillin Allergy (Mild, Verified 01/01/20 21:00) Home Medications: Furosemide [Lasix] 0 mg PO DAILY 09/14/14 [History] Metformin HCl [Fortamet] 0 mg PO DAILY 09/14/14 [History] Verapamil HCl [Verapamil ER] 180 mg PO DAILY 09/14/14 [History] Hx Tetanus, Diphtheria Vaccination/Date Given: No Hx Influenza Vaccination/Date Given: No Hx Pneumococcal Vaccination/Date Given: No Immunizations Up to Date: Yes Travel Risk - International Travel Have you traveled outside of the country in past 3 weeks: No - Coronavirus Screening Are you exhibiting any of the following symptoms?: Yes Symptoms: Shortness of Breath Close contact with a COVID-19 positive Pt in past 14-21 Days: No - Review of Systems Constitutional: Fever, Chills, Fatigue Eyes: No Symptoms Ears, Nose, & Throat: No Symptoms Respiratory: Cough Cardiac: Chest Pain, Edema Abdominal/Gastrointestinal: No Symptoms Genitourinary Symptoms: No Symptoms Musculoskeletal: No Symptoms Skin: No Symptoms Neurological: No Symptoms Psychological: No Symptoms Endocrine: No Symptoms Hematologic/Lymphatic: No Symptoms Immunological/Allergic: No Symptoms - Past Medical History Pertinent Past Medical History: Yes Neurological History: No Pertinent History ENT History: No Pertinent History Cardiac History: High Cholesterol, Hypertension, Other Respiratory History: No Pertinent History Endocrine Medical History: Diabetes Type II Musculoskeletal History: No Pertinent History GI Medical History: Diverticulitis History: No Pertinent History Psycho-Social History: No Pertinent History Female Reproductive Disorders: No Pertinent History - Past Surgical History Past Surgical History: Yes Neuro Surgical History: No Pertinent History Cardiac: No Pertinent History Respiratory: No Pertinent History Gastrointestinal: Appendectomy, Cholecystectomy, Colon Resection Genitourinary: No Pertinent History Musculoskeletal: No Pertinent History Female Surgical History: Hysterectomy - Social History Smoking Status: Never smoker Exposure to second hand smoke: No Drug Use: none Patient Lives Alone: No - Female History Hx Now: No - Nursing Vital Signs Nursing Vital Signs: Initial Vital Signs Temperature 99.3 F 02/01/20 14:09 Pulse Rate 104 H 02/01/20 14:09 Respiratory Rate 22 02/01/20 14:09 Blood Pressure 142/88 02/01/20 14:09 O2 Sat by Pulse Oximetry 94 L 02/01/20 14:09 Pain Scale Pain Intensity 4 - Physical Exam General Appearance: no apparent distress, alert Eye Exam: PERRL/EOMI, eyes nml inspection Ears, Nose, Throat Exam: normal ENT inspection, TMs normal, pharynx normal Neck Exam: normal inspection, non-tender, supple, full range of motion Respiratory Exam: normal breath sounds, lungs clear, No chest tenderness Cardiovascular Exam: regular rate/rhythm, normal heart sounds Gastrointestinal/Abdomen Exam: soft, normal bowel sounds Back Exam: normal inspection, normal range of motion Extremity Exam: normal inspection, normal range of motion, swelling, No tenderness Neurologic Exam: alert, oriented x 3, cooperative, validation intern II-XII nml as tested Skin Exam: normal color SpO2 Interpretation: normal SpO2: 94 O2 Delivery: Room Air - Course EKG Interpreted by Me: RATE (100), Sinus Rhythm, NORMAL AXIS, NORMAL INTERVALS, Q-wave (Anteroseptal) Ordered Tests: Active Orders 24 hr Category Date Time Status Visual Education Director STAT Care 02/01/20 14:25 Active EKG-ER Only STAT Care 02/01/20 14:24 Active IV Insertion STAT Care 02/01/20 14:24 Active CHEST 1 VIEW (PORTABLE) Stat Exams 02/01/20 14:25 Taken CBC W DIFF Stat Lab 02/01/20 14:24 Completed CK-Creatinine Phosphokinase Stat Lab 02/01/20 14:24 Completed CMP Stat Lab 02/01/20 14:24 Completed D-DIMER QUANTITATIVE Stat Lab 02/01/20 15:49 Completed NT PRO BNP Stat Lab 02/01/20 14:24 Completed TROPONIN Q3H Lab 02/01/20 14:30 Completed TROPONIN Q3H Lab 02/01/20 17:30 Ordered TROPONIN Q3H Lab 02/01/20 20:30 Ordered TROPONIN Q3H Lab 02/01/20 23:30 Ordered TROPONIN Q3H Lab 02/02/20 02:30 Ordered Transfer Order Routine Transfer 02/01/20 Ordered Medication Summary Discontinued Medications Generic Name Dose Route Start Last Admin Trade Name Freq PRN Reason Stop Dose Admin Aspirin 324 mg 02/01/20 14:24 02/01/20 14:53 Baby Aspirin 81 Mg Chew PO 02/01/20 14:25 Not Given STAT ONE Lab/Rad Data: Laboratory Result Diagrams 02/01/20 14:24 02/01/20 14:24 Laboratory Results 02/01/20 02/01/20 02/01/20 Range/Units 15:49 14:30 14:24 WBC (4.0-10.5) K/mm3 RBC (4.1-5.4) M/mm3 Hgb (12.0-16.0) gm/dl Hct (35-47) % MCV (78-100) fl MCH (26-32) pg MCHC (32-36) g/dl RDW (11.5-14.0) % Plt Count (150-450) K/mm3 MPV (7.5-11.0) fl Gran % (36.0-66.0) % Eos # (Auto) (0-0.5) Absolute Lymphs (auto) (1.0-4.6) Absolute Monos (auto) (0.0-1.3) Lymphocytes % (24.0-44.0) % Monocytes % (0.0-12.0) % Eosinophils % (0.00-5.0) % Basophils % (0.0-0.4) % Absolute Granulocytes (1.4-6.9) Basophils # (0-0.4) D-Dimer 385 (215-500) ng/mL Sodium 139 (137-145) mmol/L Potassium 3.6 (3.5-5.1) mmol/L Chloride 102 (98-107) mmol/L Carbon Dioxide 32 H (22-30) mmol/L Anion Gap 8.3 (5-15) MEQ/L BUN 16 (7-17) mg/dL Creatinine 0.64 (0.52-1.04) mg/dL Estimated GFR > 60.0 ML/MIN Glucose 111 H (74-106) mg/dL Calcium 8.8 (8.4-10.2) mg/dL Total Bilirubin 0.60 (0.2-1.3) mg/dL AST 20 (14-36) U/L ALT 13 (0-35) U/L Alkaline Phosphatase 102 (38-126) U/L Creatine Kinase 35 (30-135) U/L Troponin I < 0.012 (0.000-0.034) ng/mL NT-Pro-B Natriuret Pep 341 (0-900) pg/mL Serum Total Protein 6.9 (6.3-8.2) g/dL Albumin 3.7 (3.5-5.0) g/dL 02/01/20 Range/Units 14:24 WBC 10.3 (4.0-10.5) K/mm3 RBC 3.92 L (4.1-5.4) M/mm3 Hgb 10.7 L (12.0-16.0) gm/dl Hct 34.5 L (35-47) % MCV 88.0 (78-100) fl MCH 27.3 (26-32) pg MCHC 31.0 L (32-36) g/dl RDW 17.3 H (11.5-14.0) % Plt Count 328 (150-450) K/mm3 MPV 10.2 (7.5-11.0) fl Gran % 71.2 H (36.0-66.0) % Eos # (Auto) 0.17 (0-0.5) Absolute Lymphs (auto) 1.87 (1.0-4.6) Absolute Monos (auto) 0.90 (0.0-1.3) Lymphocytes % 18.2 L (24.0-44.0) % Monocytes % 8.7 (0.0-12.0) % Eosinophils % 1.7 (0.00-5.0) % Basophils % 0.2 (0.0-0.4) % Absolute Granulocytes 7.33 H (1.4-6.9) Basophils # 0.02 (0-0.4) D-Dimer (215-500) ng/mL Sodium (137-145) mmol/L Potassium (3.5-5.1) mmol/L Chloride (98-107) mmol/L Carbon Dioxide (22-30) mmol/L Anion Gap (5-15) MEQ/L BUN (7-17) mg/dL Creatinine (0.52-1.04) mg/dL Estimated GFR ML/MIN Glucose (74-106) mg/dL Calcium (8.4-10.2) mg/dL Total Bilirubin (0.2-1.3) mg/dL AST (14-36) U/L ALT (0-35) U/L Alkaline Phosphatase (38-126) U/L Creatine Kinase (30-135) U/L Troponin I (0.000-0.034) ng/mL NT-Pro-B Natriuret Pep (0-900) pg/mL Serum Total Protein (6.3-8.2) g/dL Albumin (3.5-5.0) g/dL - Progress Progress: improved Air Movement: good Progress Note: 02/01/20 17:15 69 years old is evaluated for chest pain for the last 2 days. Chest pain is improved after getting aspirin and nitro by EMS. EKG did not show any acute ST elevation. Negative initial troponin and D-dimer. Chest x-ray showed some old changes but benign findings. Patient recently had Covid almost a month ago. Grossly unremarkable work-up otherwise. Patient has multiple risk factors for CAD and needs trending of cardiac enzymes along with other testing. I discussed with Dr. Rapp and patient is being admitted for chest pain rule out. Blood Culture(s) Obtained: No Antibiotics given: No Discussed with : Ariel Will see patient in: hospital (observation) Counseled pt/family regarding: lab results, diagnosis, rad results - Departure Departure Disposition: Observation Clinical Impression: Chest pain, rule out acute myocardial infarction Condition: Stable Critical Care Time: No Referrals: KVNG WAGGONER [Primary Care Provider] -
[2020-02-01 16:05] LABS: Absolute Neutrophil Ct (ANC) 7.33 (1.4-6.9); BASOPHIL % 0.2 % (0.0-0.4); Basophil (Absolute #) 0.02 (0-0.4); Eosinophil % 1.7 % (0.00-5.0); Eosinophil (Absolute #) 0.17 (0-0.5); Hematocrit 34.5 % (35-47); Hemoglobin 10.7 gm/dl (12.0-16.0); Lymphocyte (Absolute #) 1.87 (1.0-4.6); Lymphocytes % 18.2 % (24.0-44.0); Mean Corpuscular Hemoglobin 27.3 pg (26-32); Mean Platelet Volume 10.2 fl (7.5-11.0); Monocytes % 8.7 % (0.0-12.0); Neutrophil % 71.2 % (36.0-66.0); Platelet Count 328 K/mm3 (150-450); Red Blood Count 3.92 M/mm3 (4.1-5.4); Red Cell Distribution Width 17.3 % (11.5-14.0); White Blood Count 10.3 K/mm3 (4.0-10.5)
[2020-02-01 16:27] LABS: ALBUMIN 3.7 g/dL (3.5-5.0); ALKALINE PHOSPHATASE 102 U/L (38-126); ANION GAP 8.3 MEQ/L (5-15); BLOOD UREA NITROGEN 16 mg/dL (7-17); CHLORIDE 102 mmol/L (98-107); CK-Creatinine Phosphokinase 35 U/L (30-135); Calcium 8.8 mg/dL (8.4-10.2); Carbon Dioxide 32 mmol/L (22-30); Creatinine 1 0.64 mg/dL (0.52-1.04); EST GLOMERULAR FILTRATION RATE > 60.0 ML/MIN; Glucose 111 mg/dL (74-106); NT PRO BNP 341 pg/mL (0-900); Potassium 3.6 mmol/L (3.5-5.1); SGOT/AST 20 U/L (14-36); SGPT/ALT 13 U/L (0-35); SODIUM 139 mmol/L (137-145); Total Protein 6.9 g/dL (6.3-8.2)
[2020-02-01] MEDS ORDERED: Zofran 4 MG/2 ML VIAL IV PRN (17:20)
[2020-02-01] MEDS ORDERED: HUMALOG SQ PRN (17:20)
--- NOTE | 2020-02-01 18:29 | XRAY ---
Indication: Chest pain. Comparison: None Portable chest demonstrates minimal lingula subsegmental atelectasis/scarring. No focal infiltrate, consolidation, or large effusion. Heart is enlarged. Bony thorax intact with mild degenerative changes. Impression: Nonacute chest with chronic features.
[2020-02-01] MEDS: TYLENOL 325 MG PO PRN (18:55)
[2020-02-01] MEDS ORDERED: DUONEB 0.5-3 MG/3 ml Neb IH SCH (19:00)
[2020-02-01] MEDS: Pepcid 20 MG VIAL IV SCH (21:35)
[2020-02-01] MEDS: ZOCOR 20MG PO SCH (21:35)
[2020-02-01] MEDS: ELIQUIS 2.5 MG TABLET PO SCH (21:36)
[2020-02-01] MEDS ORDERED: ZOCOR 20MG PO SCH (22:00)
[2020-02-02 03:23] LABS: ALBUMIN 3.1 g/dL (3.5-5.0); ALKALINE PHOSPHATASE 81 U/L (38-126); BLOOD UREA NITROGEN 14 mg/dL (7-17); CHLORIDE 102 mmol/L (98-107); Calcium 8.5 mg/dL (8.4-10.2); Carbon Dioxide 31 mmol/L (22-30); Creatinine 1 0.63 mg/dL (0.52-1.04); EST GLOMERULAR FILTRATION RATE > 60.0 ML/MIN; Glucose 117 mg/dL (74-106); Potassium 3.5 mmol/L (3.5-5.1); SGOT/AST 16 U/L (14-36); SGPT/ALT 11 U/L (0-35); SODIUM 137 mmol/L (137-145); Total Protein 5.8 g/dL (6.3-8.2)
[2020-02-02 05:07] LABS: Absolute Neutrophil Ct (ANC) 4.45 (1.4-6.9); BASOPHIL % 0.3 % (0.0-0.4); Basophil (Absolute #) 0.02 (0-0.4); Eosinophil % 3.7 % (0.00-5.0); Eosinophil (Absolute #) 0.27 (0-0.5); Hematocrit 31.2 % (35-47); Hemoglobin 9.5 gm/dl (12.0-16.0); Lymphocyte (Absolute #) 1.96 (1.0-4.6); Lymphocytes % 26.5 % (24.0-44.0); Mean Cell Volume 88.9 fl (78-100); Mean Corpuscular Hemoglobin 27.1 pg (26-32); Mean Corpuscular Hgb Concent. 30.4 g/dl (32-36); Mean Platelet Volume 10.5 fl (7.5-11.0); Monocyte (Absolute #) 0.69 (0.0-1.3); Monocytes % 9.3 % (0.0-12.0); Neutrophil % 60.2 % (36.0-66.0); Platelet Count 331 K/mm3 (150-450); Red Blood Count 3.51 M/mm3 (4.1-5.4); Red Cell Distribution Width 17.4 % (11.5-14.0); White Blood Count 7.4 K/mm3 (4.0-10.5)
[2020-02-02] MEDS ORDERED: Glucophage 500 MG PO SCH (08:00)
[2020-02-02] MEDS ORDERED: Cozaar 50 MG PO SCH (10:00)
[2020-02-02] MEDS ORDERED: NORVASC 5 MG PO SCH (10:00)
[2020-02-02] MEDS ORDERED: NON-FORMULARY ITEM (Losartan Potassium [Losartan Potassium] 100 MG) PO SCH (10:00)
[2020-02-02] MEDS: Pepcid 20 MG VIAL IV SCH (10:47)
[2020-02-02] MEDS: ZOCOR 20MG PO SCH (10:48)
[2020-02-02] MEDS: ELIQUIS 2.5 MG TABLET PO SCH (10:49)
--- NOTE | 2020-02-02 12:02 | PCM.SSS ---
History of Present Illness - Chief Complaint Chief Complaint: CHEST PAIN R/O Date: 02/02/20 History of Present Illness: is a 69 year old female. Pt. notes intermittent fleating pain for the past several days, mentioned it to family and brought to ER for further evaluation. - Review of Systems Constitutional: No Fever, No Chills Eyes: No Symptoms Ears, Nose, & Throat: No Symptoms Respiratory: No Cough, No Short Of Breath Cardiac: Chest Pain, No Edema, No Syncope Abdominal/Gastrointestinal: No Abdominal Pain, No Nausea, No Vomiting, No Diarrhea Genitourinary Symptoms: No Dysuria Musculoskeletal: No Back Pain, No Neck Pain Skin: No Rash Neurological: No Dizziness, No Focal Weakness, No Sensory Changes Psychological: No Symptoms Endocrine: No Symptoms Hematologic/Lymphatic: No Symptoms Immunological/Allergic: No Symptoms Medications & Allergies Home Medications: Home Medication List Amlodipine Besylate 5 mg [Norvasc 5 mg] 5 mg PO DAILY 02/01/20 [History Confirmed 02/01/20] Apixaban [Eliquis] 5 mg PO BID 02/01/20 [History Confirmed 02/01/20] Atorvastatin Calcium [Lipitor 40Mg] 40 mg PO BID 02/01/20 [History Confirmed 02/01/20] Losartan Potassium 100 mg PO DAILY 02/01/20 [History Confirmed 02/01/20] Metformin HCl 500 mg [Glucophage 500 MG] 1,000 mg PO BID 02/01/20 [History Confirmed 02/01/20] Allergies/Adverse Reactions: Allergies Allergy/AdvReac Type Severity Reaction Status Date / Time diazepam [From Valium] Allergy Mild Verified 01/01/20 21:00 penicillin Allergy Mild Verified 01/01/20 21:00 - Past Medical History Past Medical History: Yes Neurological History: Stroke ENT History: No Pertinent History Cardiac History: High Cholesterol, Hypertension, Myocardial Infarction (SC), Other Respiratory History: No Pertinent History Endocrine Medical History: Diabetes Type II Musculoskelatal History: No Pertinent History GI Medical History: Diverticulitis History: No Pertinent History Pyscho-Social History: No Pertinent History Reproductive Disorders: No Pertinent History Comment: 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 - Female History Are you now?: No - Past Surgical History Past Surgical History: Yes Neuro Surgical History: No Pertinent History Cardiac History: No Pertinent History Respiratory Surgery: No Pertinent History GI Surgical History: Appendectomy, Cholecystectomy, Colon Resection Genitourinary Surgical Hx: No Pertinent History Musculskeletal Surgical Hx: No Pertinent History Female Surgical History: Hysterectomy - Social History Smoking Status: Never smoker Exposure to second hand smoke: No Alcohol: None Drug Use: none - Physical Exam Vital Signs: Vital Signs - 24 hr Temp Pulse Pulse Resp BP Pulse Ox 02/02/20 07:20 98.3 F 88 22 139/68 94 L 02/02/20 04:00 98.1 F 78 18 140/81 95 02/02/20 00:00 97.7 F 76 16 125/68 92 L 02/01/20 21:02 96 H 18 93 L 02/01/20 20:00 98.9 F 97 H 20 116/62 95 02/01/20 19:00 93 L 02/01/20 17:43 98.3 F 88 20 145/80 95 02/01/20 17:16 94 L 02/01/20 17:05 98.9 F 93 H 22 146/88 92 L 02/01/20 16:00 94 H 24 158/95 92 L 02/01/20 15:10 99.0 F 93 H 20 161/96 94 L 02/01/20 14:09 99.3 F 102 H 104 H 22 142/88 94 L General Appearance: no apparent distress Neurologic Exam: alert, cooperative Eye Exam: PERRL/EOMI Ears, Nose, Throat Exam: normal ENT inspection Neck Exam: normal inspection Respiratory Exam: normal breath sounds, lungs clear Cardiovascular Exam: normal heart sounds Gastrointestinal/Abdomen Exam: soft, normal bowel sounds Pelvic Exam: not done Rectal Exam: deferred Extremity Exam: pedal edema Skin Exam: normal color, warm, dry Results - Labs Lab/Micro Results: Lab Results-Last 24 Hours 02/01/20 02/01/20 02/01/20 Range/Units 14:24 14:24 14:30 WBC 10.3 (4.0-10.5) K/mm3 RBC 3.92 L (4.1-5.4) M/mm3 Hgb 10.7 L (12.0-16.0) gm/dl Hct 34.5 L (35-47) % MCV 88.0 (78-100) fl MCH 27.3 (26-32) pg MCHC 31.0 L (32-36) g/dl RDW 17.3 H (11.5-14.0) % Plt Count 328 (150-450) K/mm3 MPV 10.2 (7.5-11.0) fl Gran % 71.2 H (36.0-66.0) % Eos # (Auto) 0.17 (0-0.5) Absolute Lymphs (auto) 1.87 (1.0-4.6) Absolute Monos (auto) 0.90 (0.0-1.3) Lymphocytes % 18.2 L (24.0-44.0) % Monocytes % 8.7 (0.0-12.0) % Eosinophils % 1.7 (0.00-5.0) % Basophils % 0.2 (0.0-0.4) % Absolute Granulocytes 7.33 H (1.4-6.9) Basophils # 0.02 (0-0.4) D-Dimer (215-500) ng/mL Sodium 139 (137-145) mmol/L Potassium 3.6 (3.5-5.1) mmol/L Chloride 102 (98-107) mmol/L Carbon Dioxide 32 H (22-30) mmol/L Anion Gap 8.3 (5-15) MEQ/L BUN 16 (7-17) mg/dL Creatinine 0.64 (0.52-1.04) mg/dL Estimated GFR > 60.0 ML/MIN Glucose 111 H (74-106) mg/dL POC Glucometer (74 to 106) mg/dL Hemoglobin A1c (4.5-6.0) % Calcium 8.8 (8.4-10.2) mg/dL Total Bilirubin 0.60 (0.2-1.3) mg/dL AST 20 (14-36) U/L ALT 13 (0-35) U/L Alkaline Phosphatase 102 (38-126) U/L Creatine Kinase 35 (30-135) U/L Troponin I < 0.012 (0.000-0.034) ng/mL NT-Pro-B Natriuret Pep 341 (0-900) pg/mL Serum Total Protein 6.9 (6.3-8.2) g/dL Albumin 3.7 (3.5-5.0) g/dL 02/01/20 02/01/20 02/01/20 Range/Units 15:49 17:47 20:37 WBC (4.0-10.5) K/mm3 RBC (4.1-5.4) M/mm3 Hgb (12.0-16.0) gm/dl Hct (35-47) % MCV (78-100) fl MCH (26-32) pg MCHC (32-36) g/dl RDW (11.5-14.0) % Plt Count (150-450) K/mm3 MPV (7.5-11.0) fl Gran % (36.0-66.0) % Eos # (Auto) (0-0.5) Absolute Lymphs (auto) (1.0-4.6) Absolute Monos (auto) (0.0-1.3) Lymphocytes % (24.0-44.0) % Monocytes % (0.0-12.0) % Eosinophils % (0.00-5.0) % Basophils % (0.0-0.4) % Absolute Granulocytes (1.4-6.9) Basophils # (0-0.4) D-Dimer 385 (215-500) ng/mL Sodium (137-145) mmol/L Potassium (3.5-5.1) mmol/L Chloride (98-107) mmol/L Carbon Dioxide (22-30) mmol/L Anion Gap (5-15) MEQ/L BUN (7-17) mg/dL Creatinine (0.52-1.04) mg/dL Estimated GFR ML/MIN Glucose (74-106) mg/dL POC Glucometer (74 to 106) mg/dL Hemoglobin A1c (4.5-6.0) % Calcium (8.4-10.2) mg/dL Total Bilirubin (0.2-1.3) mg/dL AST (14-36) U/L ALT (0-35) U/L Alkaline Phosphatase (38-126) U/L Creatine Kinase (30-135) U/L Troponin I < 0.012 < 0.012 (0.000-0.034) ng/mL NT-Pro-B Natriuret Pep (0-900) pg/mL Serum Total Protein (6.3-8.2) g/dL Albumin (3.5-5.0) g/dL 02/01/20 02/01/20 02/02/20 Range/Units 21:08 23:34 02:51 WBC (4.0-10.5) K/mm3 RBC (4.1-5.4) M/mm3 Hgb (12.0-16.0) gm/dl Hct (35-47) % MCV (78-100) fl MCH (26-32) pg MCHC (32-36) g/dl RDW (11.5-14.0) % Plt Count (150-450) K/mm3 MPV (7.5-11.0) fl Gran % (36.0-66.0) % Eos # (Auto) (0-0.5) Absolute Lymphs (auto) (1.0-4.6) Absolute Monos (auto) (0.0-1.3) Lymphocytes % (24.0-44.0) % Monocytes % (0.0-12.0) % Eosinophils % (0.00-5.0) % Basophils % (0.0-0.4) % Absolute Granulocytes (1.4-6.9) Basophils # (0-0.4) D-Dimer (215-500) ng/mL Sodium (137-145) mmol/L Potassium (3.5-5.1) mmol/L Chloride (98-107) mmol/L Carbon Dioxide (22-30) mmol/L Anion Gap (5-15) MEQ/L BUN (7-17) mg/dL Creatinine (0.52-1.04) mg/dL Estimated GFR ML/MIN Glucose (74-106) mg/dL POC Glucometer 112 H (74 to 106) mg/dL Hemoglobin A1c (4.5-6.0) % Calcium (8.4-10.2) mg/dL Total Bilirubin (0.2-1.3) mg/dL AST (14-36) U/L ALT (0-35) U/L Alkaline Phosphatase (38-126) U/L Creatine Kinase (30-135) U/L Troponin I < 0.012 < 0.012 (0.000-0.034) ng/mL NT-Pro-B Natriuret Pep (0-900) pg/mL Serum Total Protein (6.3-8.2) g/dL Albumin (3.5-5.0) g/dL 02/02/20 02/02/20 02/02/20 Range/Units 02:51 02:51 05:00 WBC 7.4 (4.0-10.5) K/mm3 RBC 3.51 L (4.1-5.4) M/mm3 Hgb 9.5 L (12.0-16.0) gm/dl Hct 31.2 L (35-47) % MCV 88.9 (78-100) fl MCH 27.1 (26-32) pg MCHC 30.4 L (32-36) g/dl RDW 17.4 H (11.5-14.0) % Plt Count 331 (150-450) K/mm3 MPV 10.5 (7.5-11.0) fl Gran % 60.2 (36.0-66.0) % Eos # (Auto) 0.27 (0-0.5) Absolute Lymphs (auto) 1.96 (1.0-4.6) Absolute Monos (auto) 0.69 (0.0-1.3) Lymphocytes % 26.5 (24.0-44.0) % Monocytes % 9.3 (0.0-12.0) % Eosinophils % 3.7 (0.00-5.0) % Basophils % 0.3 (0.0-0.4) % Absolute Granulocytes 4.45 (1.4-6.9) Basophils # 0.02 (0-0.4) D-Dimer (215-500) ng/mL Sodium 137 (137-145) mmol/L Potassium 3.5 (3.5-5.1) mmol/L Chloride 102 (98-107) mmol/L Carbon Dioxide 31 H (22-30) mmol/L Anion Gap 8.0 (5-15) MEQ/L BUN 14 (7-17) mg/dL Creatinine 0.63 (0.52-1.04) mg/dL Estimated GFR > 60.0 ML/MIN Glucose 117 H (74-106) mg/dL POC Glucometer (74 to 106) mg/dL Hemoglobin A1c 5.85 (4.5-6.0) % Calcium 8.5 (8.4-10.2) mg/dL Total Bilirubin 0.50 (0.2-1.3) mg/dL AST 16 (14-36) U/L ALT 11 (0-35) U/L Alkaline Phosphatase 81 (38-126) U/L Creatine Kinase (30-135) U/L Troponin I (0.000-0.034) ng/mL NT-Pro-B Natriuret Pep (0-900) pg/mL Serum Total Protein 5.8 L (6.3-8.2) g/dL Albumin 3.1 L (3.5-5.0) g/dL 02/02/20 02/02/20 Range/Units 06:32 10:42 WBC (4.0-10.5) K/mm3 RBC (4.1-5.4) M/mm3 Hgb (12.0-16.0) gm/dl Hct (35-47) % MCV (78-100) fl MCH (26-32) pg MCHC (32-36) g/dl RDW (11.5-14.0) % Plt Count (150-450) K/mm3 MPV (7.5-11.0) fl Gran % (36.0-66.0) % Eos # (Auto) (0-0.5) Absolute Lymphs (auto) (1.0-4.6) Absolute Monos (auto) (0.0-1.3) Lymphocytes % (24.0-44.0) % Monocytes % (0.0-12.0) % Eosinophils % (0.00-5.0) % Basophils % (0.0-0.4) % Absolute Granulocytes (1.4-6.9) Basophils # (0-0.4) D-Dimer (215-500) ng/mL Sodium (137-145) mmol/L Potassium (3.5-5.1) mmol/L Chloride (98-107) mmol/L Carbon Dioxide (22-30) mmol/L Anion Gap (5-15) MEQ/L BUN (7-17) mg/dL Creatinine (0.52-1.04) mg/dL Estimated GFR ML/MIN Glucose (74-106) mg/dL POC Glucometer 114 H 148 H (74 to 106) mg/dL Hemoglobin A1c (4.5-6.0) % Calcium (8.4-10.2) mg/dL Total Bilirubin (0.2-1.3) mg/dL AST (14-36) U/L ALT (0-35) U/L Alkaline Phosphatase (38-126) U/L Creatine Kinase (30-135) U/L Troponin I (0.000-0.034) ng/mL NT-Pro-B Natriuret Pep (0-900) pg/mL Serum Total Protein (6.3-8.2) g/dL Albumin (3.5-5.0) g/dL Accuchecks Date 02/01/20 - Radiology Impressions Radiology Exams & Impressions: Radiology Procedures Category Date Time Status CHEST 1 VIEW (PORTABLE) Stat Exams 02/01/20 14:25 Completed Assessment/Plan (1) Chest pain, rule out acute myocardial infarction Current Visit: Yes Status: Acute Assessment & Plan: SC ruled out by serial troponins, will schedule for op lexiscan this week, send home with nitro sl tablets and ask to take baby asa daily. Code(s): R07.9 - CHEST PAIN, UNSPECIFIED Hospital Summary - Hospital Course Hospital Course: serial cardiac markers negative and no further chest pain, ready for d/c this am - Vitals & Intake/Output Vital Signs: Vital Signs Temperature 98.3 F 02/02/20 07:20 Pulse Rate 88 02/02/20 07:20 Respiratory Rate 22 02/02/20 07:20 Blood Pressure 139/68 02/02/20 07:20 O2 Sat by Pulse Oximetry 94 L 02/02/20 07:20 Intake & Output: Intake & Output 01/30/20 01/31/20 02/01/20 02/02/20 11:59 11:59 11:59 11:59 Intake Total 940 Output Total 375 Balance 565 Weight 104.3 kg - Lab Result Diagrams: 02/02/20 02:51 02/02/20 02:51 Lab Results-Last 24 Hrs: Lab Results-Last 24 Hours 02/01/20 02/01/20 02/01/20 Range/Units 14:24 14:24 14:30 WBC 10.3 (4.0-10.5) K/mm3 RBC 3.92 L (4.1-5.4) M/mm3 Hgb 10.7 L (12.0-16.0) gm/dl Hct 34.5 L (35-47) % MCV 88.0 (78-100) fl MCH 27.3 (26-32) pg MCHC 31.0 L (32-36) g/dl RDW 17.3 H (11.5-14.0) % Plt Count 328 (150-450) K/mm3 MPV 10.2 (7.5-11.0) fl Gran % 71.2 H (36.0-66.0) % Eos # (Auto) 0.17 (0-0.5) Absolute Lymphs (auto) 1.87 (1.0-4.6) Absolute Monos (auto) 0.90 (0.0-1.3) Lymphocytes % 18.2 L (24.0-44.0) % Monocytes % 8.7 (0.0-12.0) % Eosinophils % 1.7 (0.00-5.0) % Basophils % 0.2 (0.0-0.4) % Absolute Granulocytes 7.33 H (1.4-6.9) Basophils # 0.02 (0-0.4) D-Dimer (215-500) ng/mL Sodium 139 (137-145) mmol/L Potassium 3.6 (3.5-5.1) mmol/L Chloride 102 (98-107) mmol/L Carbon Dioxide 32 H (22-30) mmol/L Anion Gap 8.3 (5-15) MEQ/L BUN 16 (7-17) mg/dL Creatinine 0.64 (0.52-1.04) mg/dL Estimated GFR > 60.0 ML/MIN Glucose 111 H (74-106) mg/dL POC Glucometer (74 to 106) mg/dL Hemoglobin A1c (4.5-6.0) % Calcium 8.8 (8.4-10.2) mg/dL Total Bilirubin 0.60 (0.2-1.3) mg/dL AST 20 (14-36) U/L ALT 13 (0-35) U/L Alkaline Phosphatase 102 (38-126) U/L Creatine Kinase 35 (30-135) U/L Troponin I < 0.012 (0.000-0.034) ng/mL NT-Pro-B Natriuret Pep 341 (0-900) pg/mL Serum Total Protein 6.9 (6.3-8.2) g/dL Albumin 3.7 (3.5-5.0) g/dL 02/01/20 02/01/20 02/01/20 Range/Units 15:49 17:47 20:37 WBC (4.0-10.5) K/mm3 RBC (4.1-5.4) M/mm3 Hgb (12.0-16.0) gm/dl Hct (35-47) % MCV (78-100) fl MCH (26-32) pg MCHC (32-36) g/dl RDW (11.5-14.0) % Plt Count (150-450) K/mm3 MPV (7.5-11.0) fl Gran % (36.0-66.0) % Eos # (Auto) (0-0.5) Absolute Lymphs (auto) (1.0-4.6) Absolute Monos (auto) (0.0-1.3) Lymphocytes % (24.0-44.0) % Monocytes % (0.0-12.0) % Eosinophils % (0.00-5.0) % Basophils % (0.0-0.4) % Absolute Granulocytes (1.4-6.9) Basophils # (0-0.4) D-Dimer 385 (215-500) ng/mL Sodium (137-145) mmol/L Potassium (3.5-5.1) mmol/L Chloride (98-107) mmol/L Carbon Dioxide (22-30) mmol/L Anion Gap (5-15) MEQ/L BUN (7-17) mg/dL Creatinine (0.52-1.04) mg/dL Estimated GFR ML/MIN Glucose (74-106) mg/dL POC Glucometer (74 to 106) mg/dL Hemoglobin A1c (4.5-6.0) % Calcium (8.4-10.2) mg/dL Total Bilirubin (0.2-1.3) mg/dL AST (14-36) U/L ALT (0-35) U/L Alkaline Phosphatase (38-126) U/L Creatine Kinase (30-135) U/L Troponin I < 0.012 < 0.012 (0.000-0.034) ng/mL NT-Pro-B Natriuret Pep (0-900) pg/mL Serum Total Protein (6.3-8.2) g/dL Albumin (3.5-5.0) g/dL 02/01/20 02/01/20 02/02/20 Range/Units 21:08 23:34 02:51 WBC (4.0-10.5) K/mm3 RBC (4.1-5.4) M/mm3 Hgb (12.0-16.0) gm/dl Hct (35-47) % MCV (78-100) fl MCH (26-32) pg MCHC (32-36) g/dl RDW (11.5-14.0) % Plt Count (150-450) K/mm3 MPV (7.5-11.0) fl Gran % (36.0-66.0) % Eos # (Auto) (0-0.5) Absolute Lymphs (auto) (1.0-4.6) Absolute Monos (auto) (0.0-1.3) Lymphocytes % (24.0-44.0) % Monocytes % (0.0-12.0) % Eosinophils % (0.00-5.0) % Basophils % (0.0-0.4) % Absolute Granulocytes (1.4-6.9) Basophils # (0-0.4) D-Dimer (215-500) ng/mL Sodium (137-145) mmol/L Potassium (3.5-5.1) mmol/L Chloride (98-107) mmol/L Carbon Dioxide (22-30) mmol/L Anion Gap (5-15) MEQ/L BUN (7-17) mg/dL Creatinine (0.52-1.04) mg/dL Estimated GFR ML/MIN Glucose (74-106) mg/dL POC Glucometer 112 H (74 to 106) mg/dL Hemoglobin A1c (4.5-6.0) % Calcium (8.4-10.2) mg/dL Total Bilirubin (0.2-1.3) mg/dL AST (14-36) U/L ALT (0-35) U/L Alkaline Phosphatase (38-126) U/L Creatine Kinase (30-135) U/L Troponin I < 0.012 < 0.012 (0.000-0.034) ng/mL NT-Pro-B Natriuret Pep (0-900) pg/mL Serum Total Protein (6.3-8.2) g/dL Albumin (3.5-5.0) g/dL 02/02/20 02/02/20 02/02/20 Range/Units 02:51 02:51 05:00 WBC 7.4 (4.0-10.5) K/mm3 RBC 3.51 L (4.1-5.4) M/mm3 Hgb 9.5 L (12.0-16.0) gm/dl Hct 31.2 L (35-47) % MCV 88.9 (78-100) fl MCH 27.1 (26-32) pg MCHC 30.4 L (32-36) g/dl RDW 17.4 H (11.5-14.0) % Plt Count 331 (150-450) K/mm3 MPV 10.5 (7.5-11.0) fl Gran % 60.2 (36.0-66.0) % Eos # (Auto) 0.27 (0-0.5) Absolute Lymphs (auto) 1.96 (1.0-4.6) Absolute Monos (auto) 0.69 (0.0-1.3) Lymphocytes % 26.5 (24.0-44.0) % Monocytes % 9.3 (0.0-12.0) % Eosinophils % 3.7 (0.00-5.0) % Basophils % 0.3 (0.0-0.4) % Absolute Granulocytes 4.45 (1.4-6.9) Basophils # 0.02 (0-0.4) D-Dimer (215-500) ng/mL Sodium 137 (137-145) mmol/L Potassium 3.5 (3.5-5.1) mmol/L Chloride 102 (98-107) mmol/L Carbon Dioxide 31 H (22-30) mmol/L Anion Gap 8.0 (5-15) MEQ/L BUN 14 (7-17) mg/dL Creatinine 0.63 (0.52-1.04) mg/dL Estimated GFR > 60.0 ML/MIN Glucose 117 H (74-106) mg/dL POC Glucometer (74 to 106) mg/dL Hemoglobin A1c 5.85 (4.5-6.0) % Calcium 8.5 (8.4-10.2) mg/dL Total Bilirubin 0.50 (0.2-1.3) mg/dL AST 16 (14-36) U/L ALT 11 (0-35) U/L Alkaline Phosphatase 81 (38-126) U/L Creatine Kinase (30-135) U/L Troponin I (0.000-0.034) ng/mL NT-Pro-B Natriuret Pep (0-900) pg/mL Serum Total Protein 5.8 L (6.3-8.2) g/dL Albumin 3.1 L (3.5-5.0) g/dL 02/02/20 02/02/20 Range/Units 06:32 10:42 WBC (4.0-10.5) K/mm3 RBC (4.1-5.4) M/mm3 Hgb (12.0-16.0) gm/dl Hct (35-47) % MCV (78-100) fl MCH (26-32) pg MCHC (32-36) g/dl RDW (11.5-14.0) % Plt Count (150-450) K/mm3 MPV (7.5-11.0) fl Gran % (36.0-66.0) % Eos # (Auto) (0-0.5) Absolute Lymphs (auto) (1.0-4.6) Absolute Monos (auto) (0.0-1.3) Lymphocytes % (24.0-44.0) % Monocytes % (0.0-12.0) % Eosinophils % (0.00-5.0) % Basophils % (0.0-0.4) % Absolute Granulocytes (1.4-6.9) Basophils # (0-0.4) D-Dimer (215-500) ng/mL Sodium (137-145) mmol/L Potassium (3.5-5.1) mmol/L Chloride (98-107) mmol/L Carbon Dioxide (22-30) mmol/L Anion Gap (5-15) MEQ/L BUN (7-17) mg/dL Creatinine (0.52-1.04) mg/dL Estimated GFR ML/MIN Glucose (74-106) mg/dL POC Glucometer 114 H 148 H (74 to 106) mg/dL Hemoglobin A1c (4.5-6.0) % Calcium (8.4-10.2) mg/dL Total Bilirubin (0.2-1.3) mg/dL AST (14-36) U/L ALT (0-35) U/L Alkaline Phosphatase (38-126) U/L Creatine Kinase (30-135) U/L Troponin I (0.000-0.034) ng/mL NT-Pro-B Natriuret Pep (0-900) pg/mL Serum Total Protein (6.3-8.2) g/dL Albumin (3.5-5.0) g/dL Micro Results-Entire Visit: Accuchecks Date 02/01/20 - Radiology Exams Ordered Rad Exams-Entire Visit: Radiology Procedures Category Date Time Status CHEST 1 VIEW (PORTABLE) Stat Exams 02/01/20 14:25 Completed - Procedures and Test Procedures and Tests throughout Hospitalization: Therapy Orders & Screens 02/01/20 21:02 Respiratory Therapy Assessment DAILY Comment: Diagnosis: CHEST PAIN R/O - Discharge Discharge Date: 02/02/20 Disposition: Home, Self-Care Condition: Stable Prescriptions: No Action Amlodipine Besylate 5 mg [Norvasc 5 mg] 5 mg PO DAILY Apixaban [Eliquis] 5 mg PO BID Metformin HCl 500 mg [Glucophage 500 MG] 1,000 mg PO BID Atorvastatin Calcium [Lipitor 40Mg] 40 mg PO BID Losartan Potassium 100 mg PO DAILY Additional Instructions: take baby aspirin daily and rx for nitro as needed, heart test this week as scheduled. Follow up with: KVNG WAGGONER [Primary Care Provider] -
[2020-02-02 13:57] VITALS: O2SAT 95
[2020-02-02] MEDS: TYLENOL 325 MG PO PRN (15:31)
[2020-02-02 15:52] VITALS: BP 145/88; PULSE 93
== END 2020-02-02 16:08 | disposition home health service (06) ==
LOC: ED 14:08 → MED SURG 17:20
PROVIDERS: ADMIT Family Medicine; ATTEND Family Medicine
DX: R07.9 Chest pain, unspecified (principal); Z79.899 Other long term (current) drug therapy; Z79.01 Long term (current) use of anticoagulants; I10 Essential (primary) hypertension; E78.00 Pure hypercholesterolemia, unspecified; E11.9 Type 2 diabetes mellitus without complications; D68.2 Hereditary deficiency of other clotting factors
CPT/HCPCS: 36000; 36415; 71045; 80053; 82550; 82947; 83036; 83880; 84484; 85025; 85379; 93005; 93041; 93268; 94760; 99285; G0378; J2405; A9270-GY

== ENCOUNTER 2020-07-11 10:17 | Emergency (ER) | payer MEDICARE ==
[2020-07-11] MEDS ORDERED: Lice Killing Shampoo TP ONE (10:45)
[2020-07-11] MEDS ORDERED: Lasix 40 MG/4 ML IV ONE (11:18)
[2020-07-11] MEDS ORDERED: Catapres 0.1 MG PO ONE (11:22)
[2020-07-11] MEDS ORDERED: NORVASC 5 MG PO ONE (11:29)
[2020-07-11] MEDS ORDERED: Catapres 0.1 MG ONE (11:40)
[2020-07-11] MEDS ORDERED: NORVASC 5 MG ONE (11:40)
[2020-07-11] MEDS ORDERED: Lasix 40 MG/4 ML ONE (11:43)
[2020-07-11] MEDS: Sodium Chloride 0.9% 1000 ML 1,000 ML IV SCH ×2 (11:45→22:09)
[2020-07-11 11:57] LABS: Absolute Neutrophil Ct (ANC) 6.16 (1.4-6.9); BASOPHIL % 0.2 % (0.0-0.4); Basophil (Absolute #) 0.02 (0-0.4); Eosinophil (Absolute #) 0.27 (0-0.5); Hemoglobin 12.4 gm/dl (12.0-16.0); Lymphocyte (Absolute #) 1.72 (1.0-4.6); Lymphocytes % 19.3 % (24.0-44.0); Mean Cell Volume 81.6 fl (78-100); Mean Corpuscular Hemoglobin 25.3 pg (26-32); Mean Platelet Volume 10.2 fl (7.5-11.0); Monocyte (Absolute #) 0.73 (0.0-1.3); Monocytes % 8.2 % (0.0-12.0); Neutrophil % 69.3 % (36.0-66.0); Platelet Count 295 K/mm3 (150-450); White Blood Count 8.9 K/mm3 (4.0-10.5)
[2020-07-11 12:14] LABS: INR 1.14 (0.8-3.0); PROTIME 12.9 SECONDS (9.95-12.35)
[2020-07-11 12:17] LABS: PTT 33.5 SECONDS (25.3-37.0)
[2020-07-11 12:33] LABS: ALBUMIN 4.5 g/dL (3.5-5.0); ALKALINE PHOSPHATASE 103 U/L (38-126); AMYLASE 44 U/L (30-110); ANION GAP 12.9 MEQ/L (5-15); BLOOD UREA NITROGEN 17 mg/dL (7-17); CHLORIDE 101 mmol/L (98-107); CK-Creatinine Phosphokinase 66 U/L (30-135); Calcium 9.7 mg/dL (8.4-10.2); Carbon Dioxide 29 mmol/L (22-30); Creatinine 1 0.67 mg/dL (0.52-1.04); EST GLOMERULAR FILTRATION RATE > 60.0 ML/MIN; Glucose 107 mg/dL (74-106); LIPASE 141 U/L (23-300); MAGNESIUM 1.8 mg/dL (1.6-2.3); NT PRO BNP 216 pg/mL (0-900); SGOT/AST 23 U/L (14-36); SGPT/ALT 12 U/L (0-35); SODIUM 139 mmol/L (137-145); Total Protein 7.4 g/dL (6.3-8.2)
[2020-07-11 12:37] LABS: Erythrocyte Sedimentation Rate 7 mm/hr (0-20)
[2020-07-11 13:22] LABS: Appearance CLEAR (CLEAR); Bilirubin NEGATIVE (NEGATIVE); Blood NEGATIVE Ery/ul (0-5); Glucose NEGATIVE (NEGATIVE); Ketones NEGATIVE (NEGATIVE); Leukocyte Esterase NEGATIVE (NEGATIVE); Nitrite NEGATIVE (NEGATIVE); Protein,Urine Dip NEGATIVE (Negative); RBC 0-2 /HPF (0-2); Specific Gravity 1.004 (1.005-1.025); Urobilinogen NEGATIVE mg/dL (0-1)
--- NOTE | 2020-07-11 14:28 | ERPHSYRPT ---
- History of Present Illness Time Seen by Provider: 07/11/20 11:15 Source: patient, EMS, old records Exam Limitations: no limitations Patient Subjective Stated Complaint: Wellness check Triage Nursing Assessment: .... Physician History: Vipin is a 70-year-old female who presents by ambulance after she was visited by her home health nurse today and found to be living in squalor with lice and bedbugs and no medications for several months. Protective services are apparently involved with this patient. Patient did not wish to come to the hospital EMS reported that if she tried to leave the hospital they would utilize an immediate halfway. Photographs provided by EMS of the house showed to be cluttered feces on the floor. Pending of EMS and law enforcement that she could not return to the home. Timing/Duration: week(s) (Multiple) Associated Symptoms: denies symptoms Allergies/Adverse Reactions: diazepam [From Valium] Allergy (Mild, Verified 07/11/20 11:08) penicillin Allergy (Mild, Verified 07/11/20 11:08) Home Medications: Amlodipine Besylate 5 mg [Norvasc 5 mg] 5 mg PO DAILY 02/01/20 [History] Apixaban [Eliquis] 5 mg PO BID 02/01/20 [History] Atorvastatin Calcium [Lipitor 40Mg] 40 mg PO BID 02/01/20 [History] Losartan Potassium 100 mg PO DAILY 02/01/20 [History] Metformin HCl 500 mg [Glucophage 500 MG] 1,000 mg PO BID 02/01/20 [History] Hx Tetanus, Diphtheria Vaccination/Date Given: No Hx Influenza Vaccination/Date Given: No Hx Pneumococcal Vaccination/Date Given: No Immunizations Up to Date: Yes Travel Risk - International Travel Have you traveled outside of the country in past 3 weeks: No - Coronavirus Screening Are you exhibiting any of the following symptoms?: No Close contact with a COVID-19 positive Pt in past 14-21 Days: No - Vaccine Status Have you recieved a Covid-19 vaccination: No - Review of Systems Constitutional: No Fever, No Chills Eyes: No Symptoms Ears, Nose, & Throat: No Symptoms Respiratory: Dyspnea on Exertion (BUCK), No Cough Cardiac: Edema (3-4+ pitting edema both lower extremities), No Chest Pain, No Syncope Abdominal/Gastrointestinal: No Abdominal Pain, No Nausea, No Vomiting, No Diarrhea Genitourinary Symptoms: Incontinence, No Dysuria Musculoskeletal: No Back Pain, No Neck Pain Skin: Pruritis, Skin Lesions (Excoriated areas), No Rash Neurological: No Dizziness, No Focal Weakness, No Sensory Changes Psychological: No Symptoms Endocrine: No Symptoms Hematologic/Lymphatic: No Symptoms All Other Systems: Reviewed and Negative - Past Medical History Pertinent Past Medical History: Yes Neurological History: Stroke ENT History: No Pertinent History Cardiac History: High Cholesterol, Hypertension, Myocardial Infarction (MD), Other Respiratory History: No Pertinent History Endocrine Medical History: Diabetes Type II Musculoskeletal History: No Pertinent History GI Medical History: Diverticulitis History: No Pertinent History Psycho-Social History: No Pertinent History Female Reproductive Disorders: No Pertinent History Other Medical History: 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 - Past Surgical History Past Surgical History: Yes Neuro Surgical History: No Pertinent History Cardiac: No Pertinent History Respiratory: No Pertinent History Gastrointestinal: Appendectomy, Cholecystectomy, Colon Resection Genitourinary: No Pertinent History Musculoskeletal: No Pertinent History Female Surgical History: Hysterectomy - Social History Smoking Status: Never smoker Exposure to second hand smoke: No Drug Use: none Patient Lives Alone: No - Female History Hx Now: No - Nursing Vital Signs Nursing Vital Signs: Initial Vital Signs Temperature 98.5 F 07/11/20 11:02 Pulse Rate 88 07/11/20 11:02 Respiratory Rate 18 07/11/20 11:02 Blood Pressure 206/119 07/11/20 11:02 O2 Sat by Pulse Oximetry 96 07/11/20 11:02 Pain Scale Pain Intensity 0 - Physical Exam General Appearance: mild distress Eye Exam: PERRL/EOMI, eyes nml inspection Ears, Nose, Throat Exam: normal ENT inspection, TMs normal, pharynx normal, moist mucous membranes Neck Exam: normal inspection, non-tender, supple, full range of motion Respiratory Exam: normal breath sounds, rhonchi, No respiratory distress Cardiovascular Exam: regular rate/rhythm, normal heart sounds Gastrointestinal/Abdomen Exam: soft, normal bowel sounds, No organomegaly Rectal Exam: deferred Back Exam: normal inspection, normal range of motion Extremity Exam: swelling, other (To 4 pitting edema both lower extremities), No amputations, No lacerations Neurologic Exam: alert, oriented x 3, nml cerebellar function, confusion (When asked a question she starts off very appropriate and then drifts off into other matters and other issues.), motor weakness, No facial droop Skin Exam: abrasion (Patient's from scratching) SpO2 Interpretation: normal SpO2: 94 O2 Delivery: Room Air - Course Nursing assessment & vital signs reviewed: Yes EKG Interpreted by Me: RATE (73), Sinus Rhythm, NORMAL AXIS, Non-specific ST Changes, Other (Poor R wave progression) - Radiology Exams Chest X-ray Interpretation: Interpreted by me, Other (Position is somewhat rotated appears to be some cardiomegaly no other acute abnormalities noted) - CT Exams Chest CT Interpretation: Tele-radiologist Report, Other (Impression from the CTA of the chest no central pulmonary embolus cannot exclude segmental or subsegmental emboli due to breathing artifact incidental findings are noted in the telemetry radiography report) Ordered Tests: Active Orders 24 hr Category Date Time Status CHEST 1 VIEW (PORTABLE) Stat Exams 07/11/20 11:19 Taken CHEST WITH CONTRAST [CT] Stat Exams 07/11/20 12:49 Taken AMYLASE Stat Lab 07/11/20 11:30 Completed CBC W DIFF Stat Lab 07/11/20 11:30 Completed CK-Creatinine Phosphokinase Stat Lab 07/11/20 11:30 Completed CMP Stat Lab 07/11/20 11:30 Completed D-DIMER QUANTITATIVE Stat Lab 07/11/20 11:30 Completed Erythrocyte Sedimentation Rate Stat Lab 07/11/20 11:30 Completed LIPASE Stat Lab 07/11/20 11:30 Completed Lactic Acid Stat Lab 07/11/20 11:18 Completed MAGNESIUM Stat Lab 07/11/20 11:30 Completed NT PRO BNP Stat Lab 07/11/20 11:30 Completed PROTIME WITH INR Stat Lab 07/11/20 11:30 Completed PTT Stat Lab 07/11/20 11:30 Completed TROPONIN Q3H Lab 07/11/20 11:30 Completed TROPONIN Q3H Lab 07/11/20 14:40 Received TROPONIN Q3H Lab 07/11/20 17:30 Ordered TROPONIN Q3H Lab 07/11/20 20:30 Ordered TROPONIN Q3H Lab 07/11/20 23:30 Ordered UA W/RFX UR CULTURE Stat Lab 07/11/20 12:26 Completed Medication Summary Generic Name Dose Route Start Last Admin Trade Name Freq PRN Reason Stop Dose Admin Sodium Chloride 1,000 mls @ 50 mls/hr 07/11/20 11:30 07/11/20 11:45 Sodium Chloride 0.9% 1000 Ml IV 08/10/20 11:29 50 mls/hr .Q20H DELBERT Administration Discontinued Medications Generic Name Dose Route Start Last Admin Trade Name Israelq PRN Reason Stop Dose Admin Amlodipine Besylate 10 mg 07/11/20 11:29 07/11/20 11:42 Norvasc 5 Mg PO 07/11/20 11:30 10 mg STAT ONE Administration Amlodipine Besylate Confirm 07/11/20 11:40 Norvasc 5 Mg Administered 07/11/20 11:41 Dose 10 mg .ROUTE .STK-MED ONE Clonidine 0.1 mg 07/11/20 11:22 07/11/20 11:41 Catapres 0.1 Mg PO 07/11/20 11:23 0.1 mg STAT ONE Administration Clonidine Confirm 07/11/20 11:40 Catapres 0.1 Mg Administered 07/11/20 11:41 Dose 0.1 mg .ROUTE .STK-MED ONE Furosemide 40 mg 07/11/20 11:18 07/11/20 11:44 Lasix 40 Mg/4 Ml IV 07/11/20 11:19 40 mg STAT ONE Administration Furosemide Confirm 07/11/20 11:43 Lasix 40 Mg/4 Ml Administered 07/11/20 11:44 Dose 40 mg .ROUTE .STK-MED ONE Pyrethrins/Piperonyl Butoxide 5 ml 07/11/20 10:45 07/11/20 11:38 Lice Killing Shampoo TP 07/11/20 10:46 5 ml STAT ONE Administration Lab/Rad Data: Laboratory Result Diagrams 07/11/20 11:30 07/11/20 11:30 Laboratory Results 07/11/20 07/11/20 07/11/20 Range/Units 12:26 11:30 11:30 WBC (4.0-10.5) K/mm3 RBC (4.1-5.4) M/mm3 Hgb (12.0-16.0) gm/dl Hct (35-47) % MCV (78-100) fl MCH (26-32) pg MCHC (32-36) g/dl RDW (11.5-14.0) % Plt Count (150-450) K/mm3 MPV (7.5-11.0) fl Gran % (36.0-66.0) % Eos # (Auto) (0-0.5) Absolute Lymphs (auto) (1.0-4.6) Absolute Monos (auto) (0.0-1.3) Lymphocytes % (24.0-44.0) % Monocytes % (0.0-12.0) % Eosinophils % (0.00-5.0) % Basophils % (0.0-0.4) % Absolute Granulocytes (1.4-6.9) Basophils # (0-0.4) ESR (0-20) mm/hr PT 12.9 H (9.95-12.35) SECONDS INR 1.14 (0.8-3.0) APTT 33.5 (25.3-37.0) SECONDS D-Dimer 1228 H* (215-500) ng/mL Sodium (137-145) mmol/L Potassium (3.5-5.1) mmol/L Chloride (98-107) mmol/L Carbon Dioxide (22-30) mmol/L Anion Gap (5-15) MEQ/L BUN (7-17) mg/dL Creatinine (0.52-1.04) mg/dL Estimated GFR ML/MIN Glucose (74-106) mg/dL Lactic Acid (0.4-2.0) Calcium (8.4-10.2) mg/dL Magnesium (1.6-2.3) mg/dL Total Bilirubin (0.2-1.3) mg/dL AST (14-36) U/L ALT (0-35) U/L Alkaline Phosphatase (38-126) U/L Creatine Kinase (30-135) U/L Troponin I < 0.012 (0.000-0.034) ng/mL NT-Pro-B Natriuret Pep (0-900) pg/mL Serum Total Protein (6.3-8.2) g/dL Albumin (3.5-5.0) g/dL Amylase (30-110) U/L Lipase (23-300) U/L Urine Color COLORLESS (YELLOW) Urine Appearance CLEAR (CLEAR) Urine pH 7.0 (5-6) Ur Specific Sherman 1.004 (1.005-1.025) Urine Protein NEGATIVE (Negative) Urine Ketones NEGATIVE (NEGATIVE) Urine Blood NEGATIVE (0-5) Joshua/ul Urine Nitrite NEGATIVE (NEGATIVE) Urine Bilirubin NEGATIVE (NEGATIVE) Urine Urobilinogen NEGATIVE (0-1) mg/dL Ur Leukocyte Esterase NEGATIVE (NEGATIVE) Urine WBC (Auto) NONE (0-5) /HPF Urine RBC (Auto) 0-2 (0-2) /HPF U Epithel Cells (Auto) NONE (FEW) /HPF Urine Bacteria (Auto) NONE (NEGATIVE) /HPF Urine Culture Reflexed NO (NO) Urine Glucose NEGATIVE (NEGATIVE) mg/dL 07/11/20 07/11/20 07/11/20 Range/Units 11:30 11:30 11:18 WBC 8.9 (4.0-10.5) K/mm3 RBC 4.90 (4.1-5.4) M/mm3 Hgb 12.4 (12.0-16.0) gm/dl Hct 40.0 (35-47) % MCV 81.6 (78-100) fl MCH 25.3 L (26-32) pg MCHC 31.0 L (32-36) g/dl RDW 18.0 H (11.5-14.0) % Plt Count 295 (150-450) K/mm3 MPV 10.2 (7.5-11.0) fl Gran % 69.3 H (36.0-66.0) % Eos # (Auto) 0.27 (0-0.5) Absolute Lymphs (auto) 1.72 (1.0-4.6) Absolute Monos (auto) 0.73 (0.0-1.3) Lymphocytes % 19.3 L (24.0-44.0) % Monocytes % 8.2 (0.0-12.0) % Eosinophils % 3.0 (0.00-5.0) % Basophils % 0.2 (0.0-0.4) % Absolute Granulocytes 6.16 (1.4-6.9) Basophils # 0.02 (0-0.4) ESR 7 (0-20) mm/hr PT (9.95-12.35) SECONDS INR (0.8-3.0) APTT (25.3-37.0) SECONDS D-Dimer (215-500) ng/mL Sodium 139 (137-145) mmol/L Potassium 4.0 (3.5-5.1) mmol/L Chloride 101 (98-107) mmol/L Carbon Dioxide 29 (22-30) mmol/L Anion Gap 12.9 (5-15) MEQ/L BUN 17 (7-17) mg/dL Creatinine 0.67 (0.52-1.04) mg/dL Estimated GFR > 60.0 ML/MIN Glucose 107 H (74-106) mg/dL Lactic Acid 1.2 (0.4-2.0) Calcium 9.7 (8.4-10.2) mg/dL Magnesium 1.8 (1.6-2.3) mg/dL Total Bilirubin 0.70 (0.2-1.3) mg/dL AST 23 (14-36) U/L ALT 12 (0-35) U/L Alkaline Phosphatase 103 (38-126) U/L Creatine Kinase 66 (30-135) U/L Troponin I (0.000-0.034) ng/mL NT-Pro-B Natriuret Pep 216 (0-900) pg/mL Serum Total Protein 7.4 (6.3-8.2) g/dL Albumin 4.5 (3.5-5.0) g/dL Amylase 44 (30-110) U/L Lipase 141 (23-300) U/L Urine Color (YELLOW) Urine Appearance (CLEAR) Urine pH (5-6) Ur Specific Sherman (1.005-1.025) Urine Protein (Negative) Urine Ketones (NEGATIVE) Urine Blood (0-5) Joshua/ul Urine Nitrite (NEGATIVE) Urine Bilirubin (NEGATIVE) Urine Urobilinogen (0-1) mg/dL Ur Leukocyte Esterase (NEGATIVE) Urine WBC (Auto) (0-5) /HPF Urine RBC (Auto) (0-2) /HPF U Epithel Cells (Auto) (FEW) /HPF Urine Bacteria (Auto) (NEGATIVE) /HPF Urine Culture Reflexed (NO) Urine Glucose (NEGATIVE) mg/dL - Progress Progress: improved - Departure Departure Disposition: Observation Clinical Impression: Hypertensive urgency, Weakness, Bilateral leg weakness Condition: Fair Critical Care Time: No Referrals: KVNG WAGGONER [Primary Care Provider] -
[2020-07-11 16:28] LABS: INFLUENZA A NEGATIVE (NEGATIVE); INFLUENZA B NEGATIVE (NEGATIVE); RESPIRATORY SYNCTIAL VIRUS NEGATIVE (Negative)
[2020-07-11] MEDS: Glucophage XR 500 MG PO SCH (20:01)
--- NOTE | 2020-07-11 21:48 | XRAY ---
Indication: Elevated d-dimer. Multiple contiguous axial images obtained through the chest using 80 cc Isovue 370 contrast and PE protocol.. Comparison: January 01, 2020. There is good opacification of the pulmonary arteries to include the lobar and segmental branches. Mild respiration artifact limits evaluation of the distal lobar and segmental branches. No obvious pulmonary embolus. Heart is now enlarged. Aorta is normal in course and caliber. No pathologic mediastinal/hilar lymphadenopathy. Lungs demonstrate minimal bilateral dependent atelectasis. No suspicious pulmonary mass/nodule, infiltrate, or effusion. Bony thorax intact again with minimal degenerative changes throughout the spine. Left anterior chest wall/breast and lower neck demonstrates numerous enhancing collateral veins concerning for left axillary and/or subclavian vein stenosis or occlusion. Left breast also demonstrates large area of subcutaneous enhancement of uncertain etiology or clinical significance. Limited upper abdomen demonstrates stable left adrenal adenoma. Impression: 1. Pulmonary embolus evaluation limited by respiration artifact. No obvious pulmonary embolus. 2. New cardiomegaly. 3. Left anterior chest/breast and lower neck collateral veins. Rule out left axillary and/or subclavian vein stenosis or occlusion. 4. Stable left adrenal adenoma. Comment: Preliminary interpretation was made by [facility]. No critical discrepancy.
--- NOTE | 2020-07-11 21:55 | XRAY ---
Indication: Short of breath. Comparison: February 01, 2020. Portable chest underinflated with new cardiomegaly. No focal infiltrate, consolidation, or large effusion. Bony thorax intact again with degenerative changes. Impression: New cardiomegaly. Negative for acute pneumonic process or CHF.
[2020-07-11] MEDS: ELIQUIS 2.5 MG TABLET PO SCH (22:05)
[2020-07-12 06:39] LABS: Absolute Neutrophil Ct (ANC) 6.47 (1.4-6.9); BASOPHIL % 0.2 % (0.0-0.4); Basophil (Absolute #) 0.02 (0-0.4); Eosinophil % 3.5 % (0.00-5.0); Eosinophil (Absolute #) 0.31 (0-0.5); Hematocrit 40.5 % (35-47); Hemoglobin 12.4 gm/dl (12.0-16.0); Lymphocyte (Absolute #) 1.46 (1.0-4.6); Lymphocytes % 16.4 % (24.0-44.0); Mean Cell Volume 81.8 fl (78-100); Mean Corpuscular Hemoglobin 25.1 pg (26-32); Mean Corpuscular Hgb Concent. 30.6 g/dl (32-36); Monocyte (Absolute #) 0.62 (0.0-1.3); Neutrophil % 72.9 % (36.0-66.0); Platelet Count 302 K/mm3 (150-450); Red Blood Count 4.95 M/mm3 (4.1-5.4); Red Cell Distribution Width 18.3 % (11.5-14.0); White Blood Count 8.9 K/mm3 (4.0-10.5)
[2020-07-12 07:03] LABS: ALBUMIN 3.9 g/dL (3.5-5.0); ALKALINE PHOSPHATASE 85 U/L (38-126); ANION GAP 8.1 MEQ/L (5-15); BLOOD UREA NITROGEN 14 mg/dL (7-17); CHLORIDE 100 mmol/L (98-107); Calcium 9.2 mg/dL (8.4-10.2); Carbon Dioxide 34 mmol/L (22-30); Creatinine 1 0.68 mg/dL (0.52-1.04); EST GLOMERULAR FILTRATION RATE > 60.0 ML/MIN; Glucose 116 mg/dL (74-106); PREALBUMIN 15.08 mg/dL (17.6-36.0); Potassium 3.4 mmol/L (3.5-5.1); SGOT/AST 22 U/L (14-36); SGPT/ALT 11 U/L (0-35); SODIUM 139 mmol/L (137-145); Total Protein 6.7 g/dL (6.3-8.2)
[2020-07-12 07:29] LABS: INR 1.48 (0.8-3.0); PROTIME 16.8 SECONDS (9.95-12.35)
[2020-07-12] MEDS: Glucophage XR 500 MG PO SCH ×2 (07:40→18:50)
[2020-07-12] MEDS ORDERED: Apresoline 25 MG TABLET PO PRN (09:14)
[2020-07-12] MEDS: Coreg 6.25 MG PO SCH ×2 (10:35→21:36)
[2020-07-12] MEDS: LASIX 20 MG PO SCH (10:35)
[2020-07-12] MEDS: NORVASC 5 MG PO SCH (10:35)
[2020-07-12] MEDS: Cozaar 50 MG PO SCH (10:36)
[2020-07-12] MEDS: ELIQUIS 2.5 MG TABLET PO SCH ×2 (10:51→21:36)
[2020-07-12] MEDS: ZOCOR 20MG PO SCH (10:52)
[2020-07-12] MEDS: Sodium Chloride 0.9% 1000 ML 1,000 ML IV SCH (20:09)
[2020-07-13 05:36] LABS: Absolute Neutrophil Ct (ANC) 7.01 (1.4-6.9); BASOPHIL % 0.2 % (0.0-0.4); Basophil (Absolute #) 0.02 (0-0.4); Eosinophil % 3.8 % (0.00-5.0); Eosinophil (Absolute #) 0.37 (0-0.5); Hematocrit 40.7 % (35-47); Hemoglobin 12.6 gm/dl (12.0-16.0); Lymphocyte (Absolute #) 1.58 (1.0-4.6); Lymphocytes % 16.3 % (24.0-44.0); Mean Cell Volume 81.6 fl (78-100); Mean Corpuscular Hemoglobin 25.3 pg (26-32); Mean Platelet Volume 10.3 fl (7.5-11.0); Monocyte (Absolute #) 0.74 (0.0-1.3); Monocytes % 7.6 % (0.0-12.0); Neutrophil % 72.1 % (36.0-66.0); Platelet Count 304 K/mm3 (150-450); Red Blood Count 4.99 M/mm3 (4.1-5.4); Red Cell Distribution Width 18.1 % (11.5-14.0); White Blood Count 9.7 K/mm3 (4.0-10.5)
[2020-07-13 05:53] LABS: ALBUMIN 3.9 g/dL (3.5-5.0); ALKALINE PHOSPHATASE 82 U/L (38-126); ANION GAP 9.1 MEQ/L (5-15); BLOOD UREA NITROGEN 14 mg/dL (7-17); CHLORIDE 99 mmol/L (98-107); Carbon Dioxide 32 mmol/L (22-30); Creatinine 1 0.66 mg/dL (0.52-1.04); EST GLOMERULAR FILTRATION RATE > 60.0 ML/MIN; Glucose 127 mg/dL (74-106); Potassium 3.4 mmol/L (3.5-5.1); SGOT/AST 21 U/L (14-36); SGPT/ALT 10 U/L (0-35); SODIUM 136 mmol/L (137-145); Total Protein 6.7 g/dL (6.3-8.2)
[2020-07-13] MEDS ORDERED: HOLD METFORMIN PRODUCTS FOR 48 HOURS MC SCH (10:00)
[2020-07-13] MEDS: NORVASC 5 MG PO SCH (10:52)
[2020-07-13] MEDS: ELIQUIS 2.5 MG TABLET PO SCH (10:52)
[2020-07-13] MEDS: ZOCOR 20MG PO SCH (10:52)
[2020-07-13] MEDS: Coreg 6.25 MG PO SCH (10:52)
[2020-07-13] MEDS: Cozaar 50 MG PO SCH (10:53)
[2020-07-13] MEDS: LASIX 20 MG PO SCH (10:53)
[2020-07-13 12:01] VITALS: O2SAT 93
--- NOTE | 2020-07-13 14:00 | HP ---
CHIEF COMPLAINT: Hypertension and the patient apparently living in squalor with feces and urine on the floor and in the chair which she was sitting. HISTORY OF PRESENT ILLNESS: The patient is a 70 year-old white female who apparently had a health care visit. The patient was apparently found in squalor with lice and bedbugs. Apparently she had not cleaned her apartment for several months. She had apparently feces and urine in the chair in which she was sitting. The patient was brought to the emergency room and showered a couple of times. She was found to have to have bedbugs on her. Apparently Adult Protective Services were also involved. PAST MEDICAL/SURGICAL HISTORY: The patient reports a previous history of hypertension, myocardial infarction, diabetes mellitus type II, diverticulitis. She previously had appendectomy, cholecystectomy, partial colon resection and hysterectomy. MEDICATIONS: Her home medications currently include amlodipine 5 mg daily, Eliquis 5 mg b.i.d., Atorvastatin 40 mg b.i.d., losartan 100 mg a day, metformin 500 mg two tablets twice a day but apparently the patient has not been taking her medications for the last several months. ALLERGIES: PENICILLIN. DIAZEPAM. PHYSICAL EXAMINATION: VITAL SIGNS: Her vital signs on admission showed her temperature 98.5F, pulse 88, respiratory rate 18, blood pressure 206/119. O2 saturation was 96%. HEENT: Normocephalic, atraumatic. The patient is extremely hard of hearing. She does have hearing aids but refuses to wear them. Oropharynx is slightly dry. NECK: Supple without lymphadenopathy, thyromegaly or JVD. CHEST: Clear to auscultation. HEART: Regular rate and rhythm without murmurs, rubs or gallops. ABDOMEN: Soft. No palpable masses. EXTREMITIES: No cyanosis or clubbing. There is trace edema present. NEUROLOGIC: The patient is alert and oriented x3 with no focal deficits. LAB DATA AND TESTS: The patient's laboratory studies in the emergency room showed lactic acid of 1.2. Her D-dimer was elevated at 1228. Her white count was 8.9, hemoglobin 12.4, PLT count 295,000, sed rate was 7. Sugar was 107. Metabolic panel was remarkably normal. BUN 17, creatinine 0.67. Electrolytes normal. Liver enzymes were normal. ProBNP was normal. Troponins less than 0.012. UA normal with specific gravity 1.004. CT scan of the chest due to the elevated D-dimer showing no obvious pulmonary embolus, new cardiomegaly was present. Left anterior chest showed neck collateral veins; rule out left axillary and/or subclavian vein stenosis or occlusion, stable left adrenal adenoma. Her EKG showed sinus rhythm. 12 lead showing left axis deviation and poor progression of R-wave across the precordial leads consistent with previous myocardial infarction. ASSESSMENT: A patient with hypertension. I believe we started her medication. We will also add Coreg 6.25 mg b.i.d. with hydralazine PRN if her systolic should raise above 180. The patient will have discharge planning to see her as well as physical therapy for evaluation. She did have a Guzmán catheter placed but the patient states she is able to get up and go to the bathroom on her own and does care for herself otherwise. The plan will otherwise be for possible placement and rehab in a [place] [facility] [place]. Also depending on Adult Protective Services to do evaluation and social circumstances on the patient's ability perhaps to go back home.
[2020-07-13 16:15] VITALS: BP 160/83; PULSE 86
[2020-07-13] MEDS ORDERED: Glucophage XR 500 MG PO SCH (17:00)
== END 2020-07-13 19:45 | disposition home or self-care (01) ==
LOC: ED 10:17 → MED SURG 16:53
PROVIDERS: ADMIT Family Medicine; ATTEND Family Medicine
DX: I16.0 Hypertensive urgency (principal); M62.81 Muscle weakness (generalized); I10 Essential (primary) hypertension; I25.2 Old myocardial infarction
CPT/HCPCS: 0241U; 36000; 36415; 51702; 71045; 71260; 80053; 81001; 82150; 82550; 82947; 83036; 83605; 83690; 83735; 83880; 84134; 84484; 85025; 85379; 85610; 85652; 85730; 93268; 96374; 97161; 99285; G0378; J1940; A9270-GY

== ENCOUNTER 2021-02-06 09:20 | Inpatient (IN) | payer MEDICARE ==
[2021-02-06] MEDS ORDERED: Sodium Chloride 0.9% 1000 ML 1,000 ML IV STA (10:28)
[2021-02-06] MEDS ORDERED: Sodium Chloride 0.9% 1000 ML 1,000 ML ONE (10:35)
--- NOTE | 2021-02-06 10:59 | ERPHSYRPT ---
- History of Present Illness Time Seen by Provider: 02/06/21 10:18 Source: patient, family, EMS Patient Subjective Stated Complaint: Wellness check Triage Nursing Assessment: Patient brought into ED EMS and transferred to bed with assist of 3. Patient A+O x 3. Patient's skin pink, warm and dry. EMS reports getting a call for lift assist. Upon arrival patient was sitting in a recliner chair and was about to slide out due to the urine and feces she was sitting on. Patient lives at home with son. Son requested her to be sent to hospital for eval. Patient's son states he works nightshift. Patient has been sitting in her recliner chair for several days not getting up or eating. Patient noted to have two incontinent briefs on that were saturated in urine and feces. Patient has multiple open areas to skin (see note). Patient imediately taken to shower before assessment began. Patient denies pain or discomfort. Lungs clear a/p barbara. Physician History: 70-year-old female with history of hypertension, hyperlipidemia, congestive heart failure, COVID-19 infection and pulmonary embolism on Eliquis was brought in the ER by EMS with generalized weakness fatigue and tiredness and inability to take care of herself. Apparently EMS responded to a call for lifting help and found her sitting in the recliner so with urine and feces. Patient has hard of hearing, not a good historian but according to EMS/son patient is having difficulty taking care of self with increasing weakness fatigue and tiredness. No obvious difficulty breathing but does report having abdominal pain with some loose stool. Patient is immediately cleaned and multiple sores at the back and lower extremities noticed history is limited. Allergies/Adverse Reactions: diazepam [From Valium] Allergy (Mild, Verified 02/06/21 10:14) penicillin Allergy (Mild, Verified 02/06/21 10:14) Penicillins Allergy (Verified 02/06/21 10:14) Home Medications: Amlodipine Besylate 5 mg [Norvasc 5 mg] 5 mg PO DAILY 02/01/20 [History] Apixaban [Eliquis] 5 mg PO BID 02/01/20 [History] Atorvastatin Calcium [Lipitor 40Mg] 40 mg PO DAILY 02/01/20 [History] Losartan Potassium 100 mg PO DAILY 02/01/20 [History] Furosemide 20 mg [Lasix 20 mg] 20 mg PO DAILY 07/11/20 [History] Metformin HCl 500 mg [Glucophage 500 MG] 500 mg PO BIDWM 02/06/21 [History] Hx Tetanus, Diphtheria Vaccination/Date Given: Yes Hx Influenza Vaccination/Date Given: No Hx Pneumococcal Vaccination/Date Given: Yes Immunizations Up to Date: Yes Travel Risk - International Travel Have you traveled outside of the country in past 3 weeks: No - Coronavirus Screening Are you exhibiting any of the following symptoms?: No Close contact with a COVID-19 positive Pt in past 14-21 Days: No - Vaccine Status Have you recieved a Covid-19 vaccination: No - Review of Systems Constitutional: Fatigue, Weakness Eyes: No Symptoms Ears, Nose, & Throat: No Symptoms Respiratory: Cough Cardiac: No Symptoms Abdominal/Gastrointestinal: Abdominal Pain, Diarrhea Genitourinary Symptoms: No Symptoms Musculoskeletal: Arthralgias Skin: Skin Lesions Neurological: No Symptoms Hematologic/Lymphatic: No Symptoms Immunological/Allergic: No Symptoms - Past Medical History Pertinent Past Medical History: Yes Neurological History: Stroke ENT History: No Pertinent History, Cataracts Cardiac History: Myocardial Infarction (OR), High Cholesterol, Hypertension, Ot her Respiratory History: No Pertinent History Endocrine Medical History: Diabetes Type II Musculoskeletal History: No Pertinent History, Fractures, Arthritis GI Medical History: Diverticulitis, Gallbladder Disease History: No Pertinent History Psycho-Social History: No Pertinent History, Anxiety Female Reproductive Disorders: No Pertinent History Other Medical History: 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 - Past Surgical History Past Surgical History: Yes Neuro Surgical History: No Pertinent History Cardiac: No Pertinent History, Cardiac Catheterization Respiratory: No Pertinent History Gastrointestinal: Colon Resection, Appendectomy, Cholecystectomy Genitourinary: No Pertinent History Musculoskeletal: No Pertinent History, Orthopedic Surgery Female Surgical History: Hysterectomy Other Surgical History: sinus surgery - Social History Smoking Status: Never smoker Exposure to second hand smoke: Yes Drug Use: none Patient Lives Alone: No (son) Significant Family History: no pertinent family hx - Female History Hx Now: No - Nursing Vital Signs Nursing Vital Signs: Initial Vital Signs Temperature 96.6 F 02/06/21 10:16 Pulse Rate 107 H 02/06/21 10:16 Respiratory Rate 20 02/06/21 10:16 Blood Pressure 181/72 02/06/21 10:16 O2 Sat by Pulse Oximetry 95 02/06/21 10:16 Pain Scale Pain Intensity 0 - Physical Exam General Appearance: no apparent distress, alert Eye Exam: PERRL/EOMI, eyes nml inspection Ears, Nose, Throat Exam: normal ENT inspection, pharynx normal, moist mucous membranes Neck Exam: normal inspection, full range of motion Respiratory Exam: crackles/rales, wheezing Cardiovascular Exam: regular rate/rhythm, normal heart sounds Gastrointestinal/Abdomen Exam: soft, tenderness (Generalized), No normal bowel sounds (Hyperactive), No guarding Back Exam: No vertebral tenderness Extremity Exam: other (Multiple pressure ulcer in the lower back/gluteal region, lower extremities bilaterally) Neurologic Exam: alert, oriented x 3, cooperative, 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 as tested, sensation nml, No normal mood/affect, No nml station & gait, No motor deficits Skin Exam: normal color SpO2 Interpretation: normal SpO2: 95 O2 Delivery: Room Air - Course EKG Interpreted by Me: RATE (108), Sinus Tach, NORMAL AXIS, Q-wave (Anteroseptal), Non-specific ST Changes Ordered Tests: Active Orders 24 hr Category Date Time Status Bedrest ROUTINE Activity 02/06/21 14:33 Active Up With Assistance ROUTINE Activity 02/06/21 14:33 Active Code Status Order ROUTINE Care 02/06/21 14:33 Active EKG-ER Only STAT Care 02/06/21 10:28 Completed Fall Protocol ROUTINE Care 02/06/21 14:33 Active Guzmán [Catheter-[place] Guzmán] STAT Care 02/06/21 10:33 Completed IV Care Q6H Care 02/06/21 14:33 Active IV Insertion STAT Care 02/06/21 10:28 Completed NPO (ED) STAT Care 02/06/21 10:28 Completed Neuro Checks Q4H Care 02/06/21 14:33 Active POCT Glucose Check ACHS Care 02/06/21 14:[address] in Observation ROUTINE Care 02/06/21 14:33 Active Rowdy Hose, Apply ROUTINE Care 02/06/21 14:33 Active Weight,Daily 0600 Care 02/06/21 14:33 Active Heart-Healthy Diet Diet 02/06/21 Dinner Active ABDOMEN AND PELVIS W/0 CONTRAS [CT] Stat Exams 02/06/21 10:29 Completed CHEST 1 VIEW (PORTABLE) Stat Exams 02/06/21 10:29 Completed BLOOD CULTURE Stat Lab 02/06/21 13:00 Received CBC W DIFF AM.LAB Lab 02/07/21 04:00 Ordered CBC W DIFF Stat Lab 02/06/21 10:28 Completed CK-Creatinine Phosphokinase Stat Lab 02/06/21 10:28 Completed CMP AM.LAB Lab 02/07/21 04:00 Ordered CMP Stat Lab 02/06/21 10:28 Completed CULTURE,URINE Stat Lab 02/06/21 10:34 Received LIPASE Stat Lab 02/06/21 10:28 Completed Lactic Acid Stat Lab 02/06/21 10:28 Completed Lactic Acid Stat Lab 02/06/21 13:03 Received Lactic Acid Urgent Lab 02/06/21 13:01 Completed MAGNESIUM Stat Lab 02/06/21 10:28 Completed NT PRO BNP Stat Lab 02/06/21 10:28 Completed TROPONIN Q3H Lab 02/06/21 10:30 Completed TROPONIN Q3H Lab 02/06/21 13:00 Completed TROPONIN Q3H Lab 02/06/21 16:20 Completed TROPONIN Q3H Lab 02/06/21 19:33 Completed TROPONIN Q3H Lab 02/06/21 22:47 Completed UA W/RFX UR CULTURE Stat Lab 02/06/21 10:34 Completed Medication Summary Generic Name Dose Route Start Last Admin Trade Name Freq PRN Reason Stop Dose Admin Acetaminophen 650 mg 02/06/21 14:33 Acetaminophen 325 Mg Tablet PO 03/08/21 14:32 Q4H PRN PRN PAIN AND/OR FEVER Fluconazole 100 mg 02/07/21 10:00 Fluconazole 100 Mg Tablet PO 03/09/21 09:59 DAILY DELBERT Sodium Chloride 1,000 mls @ 50 mls/hr 02/06/21 14:33 02/06/21 19:38 Sodium Chloride 0.9% 1000 Ml IV 03/08/21 14:32 50 mls/hr .Q20H DELBERT Infusion Levofloxacin/Dextrose 500 mg in 100 mls @ 100 mls/hr 02/07/21 10:00 Levofloxacin 500mg/100ml D5w IV 03/09/21 09:59 Q24H10 DELBERT Nystatin 1 gm 02/06/21 22:00 02/06/21 23:42 Nystatin 15 Gm Powder TP 03/08/21 21:59 1 gm BID DELBERT Administration Ondansetron HCl 4 mg 02/06/21 14:33 Ondansetron Hcl 4 Mg/2 Ml Vial IV 03/08/21 14:32 Q6H PRN PRN NAUSEA/VOMITING Pantoprazole Sodium 40 mg 02/06/21 15:00 02/06/21 16:39 Pantoprazole 40 Mg Vial IV 03/08/21 14:59 40 mg Q24H10 DELBERT Administration Discontinued Medications Generic Name Dose Route Start Last Admin Trade Name Freq PRN Reason Stop Dose Admin Albuterol/Ipratropium 3 ml 02/06/21 14:33 Ipratropium/Albuterol Sulfate 3 Ml Ampul.Neb IH 03/08/21 14:32 Q4HPRN PRN SHORTNESS OF BREATH/WHEEZING Sodium Chloride 1,000 mls @ 999 mls/hr 02/06/21 10:28 02/06/21 12:06 Sodium Chloride 0.9% 1000 Ml IV 02/06/21 11:28 Infused .Q1H1M STA Infusion Sodium Chloride Confirm 02/06/21 10:35 Sodium Chloride 0.9% 1000 Ml Administered 02/06/21 10:36 Dose 1,000 mls @ ud .ROUTE .STK-MED ONE Levofloxacin/Dextrose 500 mg in 100 mls @ 100 mls/hr 02/06/21 12:22 02/06/21 13:28 Levofloxacin 500mg/100ml D5w IV 02/06/21 13:21 Infused STAT STA Infusion Levofloxacin/Dextrose Confirm 02/06/21 12:28 Levofloxacin 500mg/100ml D5w Administered 02/06/21 12:29 Dose 500 mg in 100 mls @ ud IV .STK-MED ONE Lab/Rad Data: Laboratory Result Diagrams 02/06/21 10:28 02/06/21 10:28 Laboratory Results 02/06/21 02/06/21 02/06/21 Range/Units 13:17 13:01 13:00 WBC (4.0-10.5) K/mm3 RBC (4.1-5.4) M/mm3 Hgb (12.0-16.0) gm/dl Hct (35-47) % MCV (78-100) fl MCH (26-32) pg MCHC (32-36) g/dl RDW (11.5-14.0) % Plt Count (150-450) K/mm3 MPV (7.5-11.0) fl Gran % (36.0-66.0) % Eos # (Auto) (0-0.5) Absolute Lymphs (auto) (1.0-4.6) Absolute Monos (auto) (0.0-1.3) Lymphocytes % (24.0-44.0) % Monocytes % (0.0-12.0) % Eosinophils % (0.00-5.0) % Basophils % (0.0-0.4) % Absolute Granulocytes (1.4-6.9) Basophils # (0-0.4) Sodium (137-145) mmol/L Potassium (3.5-5.1) mmol/L Chloride (98-107) mmol/L Carbon Dioxide (22-30) mmol/L Anion Gap (5-15) MEQ/L BUN (7-17) mg/dL Creatinine (0.52-1.04) mg/dL Estimated GFR ML/MIN Glucose (74-106) mg/dL Hemoglobin A1c (4.5-6.0) % Lactic Acid 1.1 (0.4-2.0) Calcium (8.4-10.2) mg/dL Magnesium (1.6-2.3) mg/dL Total Bilirubin (0.2-1.3) mg/dL AST (14-36) U/L ALT (0-35) U/L Alkaline Phosphatase (38-126) U/L Creatine Kinase (30-135) U/L Troponin I < 0.012 (0.000-0.034) ng/mL NT-Pro-B Natriuret Pep (0-900) pg/mL Serum Total Protein (6.3-8.2) g/dL Albumin (3.5-5.0) g/dL Lipase (23-300) U/L Urine Color (YELLOW) Urine Appearance (CLEAR) Urine pH (5-6) Ur Specific [place] (1.005-1.025) Urine Protein (Negative) Urine Ketones (NEGATIVE) Urine Blood (0-5) Joshua/ul Urine Nitrite (NEGATIVE) Urine Bilirubin (NEGATIVE) Urine Urobilinogen (0-1) mg/dL Ur Leukocyte Esterase (NEGATIVE) Urine WBC (Auto) (0-5) /HPF Urine RBC (Auto) (0-2) /HPF U Epithel Cells (Auto) (FEW) /HPF Urine Bacteria (Auto) (NEGATIVE) /HPF U Non-Squamous Epi Cells (FEW) /HPF Urine Mucus (Auto) (NEGATIVE) /HPF Urine Yeast (Budding) (NEGATIVE) /HPF Urine Culture Reflexed (NO) Urine Glucose (NEGATIVE) mg/dL Influenza Type A Ag NEGATIVE (NEGATIVE) Influenza Type B Ag NEGATIVE (NEGATIVE) RSV (PCR) NEGATIVE (Negative) SARS-CoV-2 (PCR) NEGATIVE (NEGATIVE) Slides for Path Review 02/06/21 02/06/21 02/06/21 Range/Units 11:10 10:34 10:30 WBC (4.0-10.5) K/mm3 RBC (4.1-5.4) M/mm3 Hgb (12.0-16.0) gm/dl Hct (35-47) % MCV (78-100) fl MCH (26-32) pg MCHC (32-36) g/dl RDW (11.5-14.0) % Plt Count (150-450) K/mm3 MPV (7.5-11.0) fl Gran % (36.0-66.0) % Eos # (Auto) (0-0.5) Absolute Lymphs (auto) (1.0-4.6) Absolute Monos (auto) (0.0-1.3) Lymphocytes % (24.0-44.0) % Monocytes % (0.0-12.0) % Eosinophils % (0.00-5.0) % Basophils % (0.0-0.4) % Absolute Granulocytes (1.4-6.9) Basophils # (0-0.4) Sodium (137-145) mmol/L Potassium (3.5-5.1) mmol/L Chloride (98-107) mmol/L Carbon Dioxide (22-30) mmol/L Anion Gap (5-15) MEQ/L BUN (7-17) mg/dL Creatinine (0.52-1.04) mg/dL Estimated GFR ML/MIN Glucose (74-106) mg/dL Hemoglobin A1c 5.77 (4.5-6.0) % Lactic Acid (0.4-2.0) Calcium (8.4-10.2) mg/dL Magnesium (1.6-2.3) mg/dL Total Bilirubin (0.2-1.3) mg/dL AST (14-36) U/L ALT (0-35) U/L Alkaline Phosphatase (38-126) U/L Creatine Kinase (30-135) U/L Troponin I < 0.012 (0.000-0.034) ng/mL NT-Pro-B Natriuret Pep (0-900) pg/mL Serum Total Protein (6.3-8.2) g/dL Albumin (3.5-5.0) g/dL Lipase (23-300) U/L Urine Color STEVEN (YELLOW) Urine Appearance CLOUDY (CLEAR) Urine pH 7.0 (5-6) Ur Specific [place] 1.021 (1.005-1.025) Urine Protein 100 (Negative) Urine Ketones TRACE (NEGATIVE) Urine Blood MODERATE (0-5) Joshua/ul Urine Nitrite POSITIVE (NEGATIVE) Urine Bilirubin NEGATIVE (NEGATIVE) Urine Urobilinogen 4 (0-1) mg/dL Ur Leukocyte Esterase LARGE (NEGATIVE) Urine WBC (Auto) >100 (0-5) /HPF Urine RBC (Auto) >101 (0-2) /HPF U Epithel Cells (Auto) NONE (FEW) /HPF Urine Bacteria (Auto) MANY (NEGATIVE) /HPF U Non-Squamous Epi Cells RARE (FEW) /HPF Urine Mucus (Auto) MODERATE (NEGATIVE) /HPF Urine Yeast (Budding) Rare (NEGATIVE) /HPF Urine Culture Reflexed YES (NO) Urine Glucose NEGATIVE (NEGATIVE) mg/dL Influenza Type A Ag (NEGATIVE) Influenza Type B Ag (NEGATIVE) RSV (PCR) (Negative) SARS-CoV-2 (PCR) (NEGATIVE) Slides for Path Review 02/06/21 02/06/21 02/06/21 Range/Units 10:28 10:28 10:28 WBC 20.5 H (4.0-10.5) K/mm3 RBC 5.27 (4.1-5.4) M/mm3 Hgb 11.8 L (12.0-16.0) gm/dl Hct 39.6 (35-47) % MCV 75.1 L (78-100) fl MCH 22.4 L (26-32) pg MCHC 29.8 L (32-36) g/dl RDW 18.0 H (11.5-14.0) % Plt Count 565 H (150-450) K/mm3 MPV 10.1 (7.5-11.0) fl Gran % 87.3 H (36.0-66.0) % Eos # (Auto) 0.04 (0-0.5) Absolute Lymphs (auto) 0.98 L (1.0-4.6) Absolute Monos (auto) 1.56 H (0.0-1.3) Lymphocytes % 4.8 L (24.0-44.0) % Monocytes % 7.6 (0.0-12.0) % Eosinophils % 0.2 (0.00-5.0) % Basophils % 0.1 (0.0-0.4) % Absolute Granulocytes 17.88 H (1.4-6.9) Basophils # 0.02 (0-0.4) Sodium 140 (137-145) mmol/L Potassium 4.3 (3.5-5.1) mmol/L Chloride 99 (98-107) mmol/L Carbon Dioxide 29 (22-30) mmol/L Anion Gap 16.3 H (5-15) MEQ/L BUN 38 H (7-17) mg/dL Creatinine 0.88 (0.52-1.04) mg/dL Estimated GFR > 60.0 ML/MIN Glucose 130 H (74-106) mg/dL Hemoglobin A1c (4.5-6.0) % Lactic Acid 2.4 H (0.4-2.0) Calcium 9.7 (8.4-10.2) mg/dL Magnesium 2.0 (1.6-2.3) mg/dL Total Bilirubin 0.90 (0.2-1.3) mg/dL AST 36 (14-36) U/L ALT 17 (0-35) U/L Alkaline Phosphatase 116 (38-126) U/L Creatine Kinase 173 H (30-135) U/L Troponin I (0.000-0.034) ng/mL NT-Pro-B Natriuret Pep 199 (0-900) pg/mL Serum Total Protein 7.2 (6.3-8.2) g/dL Albumin 3.8 (3.5-5.0) g/dL Lipase 218 (23-300) U/L Urine Color (YELLOW) Urine Appearance (CLEAR) Urine pH (5-6) Ur Specific [place] (1.005-1.025) Urine Protein (Negative) Urine Ketones (NEGATIVE) Urine Blood (0-5) Joshua/ul Urine Nitrite (NEGATIVE) Urine Bilirubin (NEGATIVE) Urine Urobilinogen (0-1) mg/dL Ur Leukocyte Esterase (NEGATIVE) Urine WBC (Auto) (0-5) /HPF Urine RBC (Auto) (0-2) /HPF U Epithel Cells (Auto) (FEW) /HPF Urine Bacteria (Auto) (NEGATIVE) /HPF U Non-Squamous Epi Cells (FEW) /HPF Urine Mucus (Auto) (NEGATIVE) /HPF Urine Yeast (Budding) (NEGATIVE) /HPF Urine Culture Reflexed (NO) Urine Glucose (NEGATIVE) mg/dL Influenza Type A Ag (NEGATIVE) Influenza Type B Ag (NEGATIVE) RSV (PCR) (Negative) SARS-CoV-2 (PCR) (NEGATIVE) Slides for Path Review YES - Progress Progress: re-examined Progress Note: 02/06/21 13:35 70-year-old is evaluated for generalized weakness and inability to take care of herself. She is having multiple bedsores because of lack of mobility. She is given fluids, work-up showed white count of 20, elevated BUN consistent with dehydration and does have a UTI, given a dose of Levaquin as well. Chest x-ray reviewed by me did not reveal any obvious acute findings, official report is pending. I have obtained CT abdomen pelvis without contrast which is e ssentially unremarkable for acute pathology. Discussed with Dr. Cornejo, reviewed history, work-up and current management, agreed with admission. Discussed with : Rm Will see patient in: hospital (observation) Counseled pt/family regarding: lab results, diagnosis, rad results - Departure Departure Disposition: Observation Clinical Impression: Acute UTI, Generalized weakness, Abdominal pain, generalized Condition: Stable Critical Care Time: No
[2021-02-06 11:12] LABS: Absolute Neutrophil Ct (ANC) 17.88 (1.4-6.9); BASOPHIL % 0.1 % (0.0-0.4); Basophil (Absolute #) 0.02 (0-0.4); Eosinophil % 0.2 % (0.00-5.0); Eosinophil (Absolute #) 0.04 (0-0.5); Hematocrit 39.6 % (35-47); Hemoglobin 11.8 gm/dl (12.0-16.0); Lymphocyte (Absolute #) 0.98 (1.0-4.6); Lymphocytes % 4.8 % (24.0-44.0); Mean Cell Volume 75.1 fl (78-100); Mean Corpuscular Hemoglobin 22.4 pg (26-32); Mean Corpuscular Hgb Concent. 29.8 g/dl (32-36); Mean Platelet Volume 10.1 fl (7.5-11.0); Monocyte (Absolute #) 1.56 (0.0-1.3); Monocytes % 7.6 % (0.0-12.0); Neutrophil % 87.3 % (36.0-66.0); Platelet Count 565 K/mm3 (150-450); Red Blood Count 5.27 M/mm3 (4.1-5.4); White Blood Count 20.5 K/mm3 (4.0-10.5)
[2021-02-06 11:36] LABS: ALBUMIN 3.8 g/dL (3.5-5.0); ALKALINE PHOSPHATASE 116 U/L (38-126); ANION GAP 16.3 MEQ/L (5-15); BLOOD UREA NITROGEN 38 mg/dL (7-17); CHLORIDE 99 mmol/L (98-107); CK-Creatinine Phosphokinase 173 U/L (30-135); Calcium 9.7 mg/dL (8.4-10.2); Carbon Dioxide 29 mmol/L (22-30); Creatinine 1 0.88 mg/dL (0.52-1.04); EST GLOMERULAR FILTRATION RATE > 60.0 ML/MIN; Glucose 130 mg/dL (74-106); LIPASE 218 U/L (23-300); NT PRO BNP 199 pg/mL (0-900); Potassium 4.3 mmol/L (3.5-5.1); SGOT/AST 36 U/L (14-36); SGPT/ALT 17 U/L (0-35); SODIUM 140 mmol/L (137-145); Total Protein 7.2 g/dL (6.3-8.2)
[2021-02-06 12:09] LABS: Appearance CLOUDY (CLEAR); Bacteria MANY /HPF (NEGATIVE); Bilirubin NEGATIVE (NEGATIVE); Blood MODERATE Ery/ul (0-5); Glucose NEGATIVE (NEGATIVE); Ketones TRACE (NEGATIVE); Leukocyte Esterase LARGE (NEGATIVE); Mucus MODERATE /HPF (NEGATIVE); Nitrite POSITIVE (NEGATIVE); Non-Squamous Epithelial Cells RARE /HPF (FEW); Protein,Urine Dip 100 (Negative); Specific Gravity 1.021 (1.005-1.025); Urobilinogen 4 mg/dL (0-1); WBC >100 /HPF (0-5)
[2021-02-06 12:13] LABS: Budding Yeast Rare /HPF (NEGATIVE); RBC >101 /HPF (0-2)
[2021-02-06] MEDS ORDERED: Levofloxacin 500MG/100ML D5W 500 MG/100 ML BAG IV STA (12:22)
[2021-02-06] MEDS ORDERED: Levofloxacin 500MG/100ML D5W 500 MG/100 ML BAG IV ONE (12:28)
[2021-02-06 14:00] LABS: INFLUENZA A NEGATIVE (NEGATIVE); INFLUENZA B NEGATIVE (NEGATIVE); RESPIRATORY SYNCTIAL VIRUS NEGATIVE (Negative); SARS-CoV-2 Xpert Express NEGATIVE (NEGATIVE)
[2021-02-06] MEDS ORDERED: DUONEB 0.5-3 MG/3 ml Neb IH PRN (14:33)
[2021-02-06] MEDS ORDERED: Zofran 4 MG/2 ML VIAL IV PRN (14:33)
[2021-02-06] MEDS: Sodium Chloride 0.9% 1000 ML 1,000 ML IV SCH (16:38)
[2021-02-06] MEDS: PROTONIX 40 MG IV IV SCH (16:39)
[2021-02-06 16:41] LABS: Slide Review 1 YES
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
--- NOTE | 2021-02-06 19:07 | XRAY ---
Indication: Abdomen pain. Comparison: July 11, 2020. Portable chest remains clear. Heart remains enlarged again with arteriosclerotic tortuous descending aorta. Bony thorax intact again with osteopenia and degenerative changes. Impression: Continued nonacute chest with chronic features.
--- NOTE | 2021-02-06 19:07 | XRAY ---
Indication: Abdomen pain. Multiple contiguous axial images obtained through the abdomen and pelvis without contrast. Comparison: January 01, 2020 Study is degraded by mild respiration artifact throughout. Lung bases demonstrates mild bibasilar dependent atelectasis. No infiltrate or effusion. Heart remains enlarged. Noncontrasted stomach and bowel loops nonobstructed. Stable descending duodenum diverticulum. There remains a few bilateral renal calculi again largest left midpole measuring 1.4 cm and 4.4 cm left lower renal exophytic cyst. No hydronephrosis or hydroureter. Stable small left adrenal adenoma. Again Guzmán catheter empties the urinary bladder, previous cholecystectomy, and hysterectomy. No free fluid/air. Remaining liver, pancreas, spleen, adrenal glands, kidneys, and ureters appear unremarkable for noncontrast exam. Again mild scattered aortoiliac calcifications without AAA. Osseous structures intact again with osteopenia and mild degenerative changes throughout the thoracolumbar spine. Impression: 1. Respiration artifact. 2. Again cardiomegaly, duodenal diverticulum, nonobstructing bilateral renal calculi, left renal cyst, left renal adenoma, and chronic bony findings. 3. Remaining CT abdomen/pelvis without contrast exam is negative. Comment: Preliminary interpretation made by [facility]. No critical discrepancy.
[2021-02-06 19:27] LABS: 027 TOX PROD PRESUMPTIVE NEGATIVE (NEGATIVE); TOXIGENIC C. DIFF ORG NEGATIVE (NEGATIVE)
[2021-02-06] MEDS: NYSTOP POWDER 15 GM TP SCH (23:42)
[2021-02-07] MEDS: TYLENOL 325 MG PO PRN (04:31)
--- NOTE | 2021-02-07 07:28 | PCM.NOTE ---
Date and Time: 02/07/21725 Subjective Assessment: patient thinks she feels a little bit better since admission, no specific complaints today. Objective Exam General Appearance: no apparent distress, obese, other (very hard of hearing) Wound Assessment: Skin/Wound Assessment Wound/Incision Assessment Start: 02/06/21 17:00 Text: Status: Active Freq: Q6H Protocol: Document 02/07/21 02:00 RG (Rec: 02/07/21 02:35 RG [id number]) Wound Photo Photo Taken Yes Comment: SEVERAL PICS ON CHART Respiratory Exam: normal breath sounds, lungs clear, No respiratory distress Cardiovascular Exam: regular rate/rhythm, normal heart sounds Gastrointestinal/Abdomen Exam: soft, No tenderness, No mass OBJECTIVE DATA Vital Signs: Vital Signs - 24 hr Temp Pulse Resp BP Pulse Ox 02/07/21 07:17 98.2 F 88 18 125/58 90 L 02/07/21 03:25 97.5 F 92 H 22 175/82 94 L 02/07/21 01:12 95 02/07/21 00:00 97.7 F 90 18 170/72 95 02/06/21 20:00 97.5 F 100 H 18 132/60 95 02/06/21 16:07 97.5 F 106 H 20 138/65 96 02/06/21 15:36 97.5 F 106 H 20 138/65 96 02/06/21 15:33 97.5 F 106 H 20 138/65 96 02/06/21 14:00 110 H 18 119/80 96 02/06/21 13:00 120 H 18 163/90 98 02/06/21 12:00 112 H 18 92 L 02/06/21 10:16 96.6 F 107 H 20 181/72 95 Pain Assessment - Last Documented Pain Intensity 8 Pain Scale Used 0-10 Pain Scale,FLACC Intake and Output: Intake & Output 02/04/21 02/05/21 02/06/21 02/07/21 11:59 11:59 11:59 11:59 Intake Total 1679 Output Total 200 650 Balance -200 1029 Weight 97.9 kg 94.7 kg Lab Results: Lab Results-Last 24 Hours 02/06/21 02/06/21 02/06/21 Range/Units 10:28 10:28 10:28 WBC 20.5 H (4.0-10.5) K/mm3 RBC 5.27 (4.1-5.4) M/mm3 Hgb 11.8 L (12.0-16.0) gm/dl Hct 39.6 (35-47) % MCV 75.1 L (78-100) fl MCH 22.4 L (26-32) pg MCHC 29.8 L (32-36) g/dl RDW 18.0 H (11.5-14.0) % Plt Count 565 H (150-450) K/mm3 MPV 10.1 (7.5-11.0) fl Gran % 87.3 H (36.0-66.0) % Eos # (Auto) 0.04 (0-0.5) Absolute Lymphs (auto) 0.98 L (1.0-4.6) Absolute Monos (auto) 1.56 H (0.0-1.3) Lymphocytes % 4.8 L (24.0-44.0) % Monocytes % 7.6 (0.0-12.0) % Eosinophils % 0.2 (0.00-5.0) % Basophils % 0.1 (0.0-0.4) % Absolute Granulocytes 17.88 H (1.4-6.9) Basophils # 0.02 (0-0.4) Sodium 140 (137-145) mmol/L Potassium 4.3 (3.5-5.1) mmol/L Chloride 99 (98-107) mmol/L Carbon Dioxide 29 (22-30) mmol/L Anion Gap 16.3 H (5-15) MEQ/L BUN 38 H (7-17) mg/dL Creatinine 0.88 (0.52-1.04) mg/dL Estimated GFR > 60.0 ML/MIN Glucose 130 H (74-106) mg/dL POC Glucometer (74 to 106) mg/dL Hemoglobin A1c (4.5-6.0) % Lactic Acid 2.4 H (0.4-2.0) Calcium 9.7 (8.4-10.2) mg/dL Magnesium 2.0 (1.6-2.3) mg/dL Total Bilirubin 0.90 (0.2-1.3) mg/dL AST 36 (14-36) U/L ALT 17 (0-35) U/L Alkaline Phosphatase 116 (38-126) U/L Creatine Kinase 173 H (30-135) U/L Troponin I (0.000-0.034) ng/mL NT-Pro-B Natriuret Pep 199 (0-900) pg/mL Serum Total Protein 7.2 (6.3-8.2) g/dL Albumin 3.8 (3.5-5.0) g/dL Prealbumin (17.6-36.0) mg/dL Lipase 218 (23-300) U/L Urine Color (YELLOW) Urine Appearance (CLEAR) Urine pH (5-6) Ur Specific [place] (1.005-1.025) Urine Protein (Negative) Urine Ketones (NEGATIVE) Urine Blood (0-5) Joshua/ul Urine Nitrite (NEGATIVE) Urine Bilirubin (NEGATIVE) Urine Urobilinogen (0-1) mg/dL Ur Leukocyte Esterase (NEGATIVE) Urine WBC (Auto) (0-5) /HPF Urine RBC (Auto) (0-2) /HPF U Epithel Cells (Auto) (FEW) /HPF Urine Bacteria (Auto) (NEGATIVE) /HPF U Non-Squamous Epi Cells (FEW) /HPF Urine Mucus (Auto) (NEGATIVE) /HPF Urine Yeast (Budding) (NEGATIVE) /HPF Urine Culture Reflexed (NO) Urine Glucose (NEGATIVE) mg/dL C. difficile Screen (NEGATIVE) C.difficile 027-NAP1-B1 (NEGATIVE) Influenza Type A Ag (NEGATIVE) Influenza Type B Ag (NEGATIVE) RSV (PCR) (Negative) SARS-CoV-2 (PCR) (NEGATIVE) Slides for Path Review YES 02/06/21 02/06/21 02/06/21 Range/Units 10:30 10:34 11:10 WBC (4.0-10.5) K/mm3 RBC (4.1-5.4) M/mm3 Hgb (12.0-16.0) gm/dl Hct (35-47) % MCV (78-100) fl MCH (26-32) pg MCHC (32-36) g/dl RDW (11.5-14.0) % Plt Count (150-450) K/mm3 MPV (7.5-11.0) fl Gran % (36.0-66.0) % Eos # (Auto) (0-0.5) Absolute Lymphs (auto) (1.0-4.6) Absolute Monos (auto) (0.0-1.3) Lymphocytes % (24.0-44.0) % Monocytes % (0.0-12.0) % Eosinophils % (0.00-5.0) % Basophils % (0.0-0.4) % Absolute Granulocytes (1.4-6.9) Basophils # (0-0.4) Sodium (137-145) mmol/L Potassium (3.5-5.1) mmol/L Chloride (98-107) mmol/L Carbon Dioxide (22-30) mmol/L Anion Gap (5-15) MEQ/L BUN (7-17) mg/dL Creatinine (0.52-1.04) mg/dL Estimated GFR ML/MIN Glucose (74-106) mg/dL POC Glucometer (74 to 106) mg/dL Hemoglobin A1c 5.77 (4.5-6.0) % Lactic Acid (0.4-2.0) Calcium (8.4-10.2) mg/dL Magnesium (1.6-2.3) mg/dL Total Bilirubin (0.2-1.3) mg/dL AST (14-36) U/L ALT (0-35) U/L Alkaline Phosphatase (38-126) U/L Creatine Kinase (30-135) U/L Troponin I < 0.012 (0.000-0.034) ng/mL NT-Pro-B Natriuret Pep (0-900) pg/mL Serum Total Protein (6.3-8.2) g/dL Albumin (3.5-5.0) g/dL Prealbumin (17.6-36.0) mg/dL Lipase (23-300) U/L Urine Color STEVEN (YELLOW) Urine Appearance CLOUDY (CLEAR) Urine pH 7.0 (5-6) Ur Specific [place] 1.021 (1.005-1.025) Urine Protein 100 (Negative) Urine Ketones TRACE (NEGATIVE) Urine Blood MODERATE (0-5) Joshua/ul Urine Nitrite POSITIVE (NEGATIVE) Urine Bilirubin NEGATIVE (NEGATIVE) Urine Urobilinogen 4 (0-1) mg/dL Ur Leukocyte Esterase LARGE (NEGATIVE) Urine WBC (Auto) >100 (0-5) /HPF Urine RBC (Auto) >101 (0-2) /HPF U Epithel Cells (Auto) NONE (FEW) /HPF Urine Bacteria (Auto) MANY (NEGATIVE) /HPF U Non-Squamous Epi Cells RARE (FEW) /HPF Urine Mucus (Auto) MODERATE (NEGATIVE) /HPF Urine Yeast (Budding) Rare (NEGATIVE) /HPF Urine Culture Reflexed YES (NO) Urine Glucose NEGATIVE (NEGATIVE) mg/dL C. difficile Screen (NEGATIVE) C.difficile 027-NAP1-B1 (NEGATIVE) Influenza Type A Ag (NEGATIVE) Influenza Type B Ag (NEGATIVE) RSV (PCR) (Negative) SARS-CoV-2 (PCR) (NEGATIVE) Slides for Path Review 02/06/21 02/06/21 02/06/21 Range/Units 13:00 13:01 13:17 WBC (4.0-10.5) K/mm3 RBC (4.1-5.4) M/mm3 Hgb (12.0-16.0) gm/dl Hct (35-47) % MCV (78-100) fl MCH (26-32) pg MCHC (32-36) g/dl RDW (11.5-14.0) % Plt Count (150-450) K/mm3 MPV (7.5-11.0) fl Gran % (36.0-66.0) % Eos # (Auto) (0-0.5) Absolute Lymphs (auto) (1.0-4.6) Absolute Monos (auto) (0.0-1.3) Lymphocytes % (24.0-44.0) % Monocytes % (0.0-12.0) % Eosinophils % (0.00-5.0) % Basophils % (0.0-0.4) % Absolute Granulocytes (1.4-6.9) Basophils # (0-0.4) Sodium (137-145) mmol/L Potassium (3.5-5.1) mmol/L Chloride (98-107) mmol/L Carbon Dioxide (22-30) mmol/L Anion Gap (5-15) MEQ/L BUN (7-17) mg/dL Creatinine (0.52-1.04) mg/dL Estimated GFR ML/MIN Glucose (74-106) mg/dL POC Glucometer (74 to 106) mg/dL Hemoglobin A1c (4.5-6.0) % Lactic Acid 1.1 (0.4-2.0) Calcium (8.4-10.2) mg/dL Magnesium (1.6-2.3) mg/dL Total Bilirubin (0.2-1.3) mg/dL AST (14-36) U/L ALT (0-35) U/L Alkaline Phosphatase (38-126) U/L Creatine Kinase (30-135) U/L Troponin I < 0.012 (0.000-0.034) ng/mL NT-Pro-B Natriuret Pep (0-900) pg/mL Serum Total Protein (6.3-8.2) g/dL Albumin (3.5-5.0) g/dL Prealbumin (17.6-36.0) mg/dL Lipase (23-300) U/L Urine Color (YELLOW) Urine Appearance (CLEAR) Urine pH (5-6) Ur Specific [place] (1.005-1.025) Urine Protein (Negative) Urine Ketones (NEGATIVE) Urine Blood (0-5) Joshua/ul Urine Nitrite (NEGATIVE) Urine Bilirubin (NEGATIVE) Urine Urobilinogen (0-1) mg/dL Ur Leukocyte Esterase (NEGATIVE) Urine WBC (Auto) (0-5) /HPF Urine RBC (Auto) (0-2) /HPF U Epithel Cells (Auto) (FEW) /HPF Urine Bacteria (Auto) (NEGATIVE) /HPF U Non-Squamous Epi Cells (FEW) /HPF Urine Mucus (Auto) (NEGATIVE) /HPF Urine Yeast (Budding) (NEGATIVE) /HPF Urine Culture Reflexed (NO) Urine Glucose (NEGATIVE) mg/dL C. difficile Screen (NEGATIVE) C.difficile 027-NAP1-B1 (NEGATIVE) Influenza Type A Ag NEGATIVE (NEGATIVE) Influenza Type B Ag NEGATIVE (NEGATIVE) RSV (PCR) NEGATIVE (Negative) SARS-CoV-2 (PCR) NEGATIVE (NEGATIVE) Slides for Path Review 02/06/21 02/06/21 02/06/21 Range/Units 16:18 16:20 16:43 WBC (4.0-10.5) K/mm3 RBC (4.1-5.4) M/mm3 Hgb (12.0-16.0) gm/dl Hct (35-47) % MCV (78-100) fl MCH (26-32) pg MCHC (32-36) g/dl RDW (11.5-14.0) % Plt Count (150-450) K/mm3 MPV (7.5-11.0) fl Gran % (36.0-66.0) % Eos # (Auto) (0-0.5) Absolute Lymphs (auto) (1.0-4.6) Absolute Monos (auto) (0.0-1.3) Lymphocytes % (24.0-44.0) % Monocytes % (0.0-12.0) % Eosinophils % (0.00-5.0) % Basophils % (0.0-0.4) % Absolute Granulocytes (1.4-6.9) Basophils # (0-0.4) Sodium (137-145) mmol/L Potassium (3.5-5.1) mmol/L Chloride (98-107) mmol/L Carbon Dioxide (22-30) mmol/L Anion Gap (5-15) MEQ/L BUN (7-17) mg/dL Creatinine (0.52-1.04) mg/dL Estimated GFR ML/MIN Glucose (74-106) mg/dL POC Glucometer 116 H (74 to 106) mg/dL Hemoglobin A1c (4.5-6.0) % Lactic Acid (0.4-2.0) Calcium (8.4-10.2) mg/dL Magnesium (1.6-2.3) mg/dL Total Bilirubin (0.2-1.3) mg/dL AST (14-36) U/L ALT (0-35) U/L Alkaline Phosphatase (38-126) U/L Creatine Kinase (30-135) U/L Troponin I < 0.012 (0.000-0.034) ng/mL NT-Pro-B Natriuret Pep (0-900) pg/mL Serum Total Protein (6.3-8.2) g/dL Albumin (3.5-5.0) g/dL Prealbumin 7.14 L (17.6-36.0) mg/dL Lipase (23-300) U/L Urine Color (YELLOW) Urine Appearance (CLEAR) Urine pH (5-6) Ur Specific [place] (1.005-1.025) Urine Protein (Negative) Urine Ketones (NEGATIVE) Urine Blood (0-5) Joshua/ul Urine Nitrite (NEGATIVE) Urine Bilirubin (NEGATIVE) Urine Urobilinogen (0-1) mg/dL Ur Leukocyte Esterase (NEGATIVE) Urine WBC (Auto) (0-5) /HPF Urine RBC (Auto) (0-2) /HPF U Epithel Cells (Auto) (FEW) /HPF Urine Bacteria (Auto) (NEGATIVE) /HPF U Non-Squamous Epi Cells (FEW) /HPF Urine Mucus (Auto) (NEGATIVE) /HPF Urine Yeast (Budding) (NEGATIVE) /HPF Urine Culture Reflexed (NO) Urine Glucose (NEGATIVE) mg/dL C. difficile Screen (NEGATIVE) C.difficile 027-NAP1-B1 (NEGATIVE) Influenza Type A Ag (NEGATIVE) Influenza Type B Ag (NEGATIVE) RSV (PCR) (Negative) SARS-CoV-2 (PCR) (NEGATIVE) Slides for Path Review 02/06/21 02/06/21 02/06/21 Range/Units 18:40 19:33 22:47 WBC (4.0-10.5) K/mm3 RBC (4.1-5.4) M/mm3 Hgb (12.0-16.0) gm/dl Hct (35-47) % MCV (78-100) fl MCH (26-32) pg MCHC (32-36) g/dl RDW (11.5-14.0) % Plt Count (150-450) K/mm3 MPV (7.5-11.0) fl Gran % (36.0-66.0) % Eos # (Auto) (0-0.5) Absolute Lymphs (auto) (1.0-4.6) Absolute Monos (auto) (0.0-1.3) Lymphocytes % (24.0-44.0) % Monocytes % (0.0-12.0) % Eosinophils % (0.00-5.0) % Basophils % (0.0-0.4) % Absolute Granulocytes (1.4-6.9) Basophils # (0-0.4) Sodium (137-145) mmol/L Potassium (3.5-5.1) mmol/L Chloride (98-107) mmol/L Carbon Dioxide (22-30) mmol/L Anion Gap (5-15) MEQ/L BUN (7-17) mg/dL Creatinine (0.52-1.04) mg/dL Estimated GFR ML/MIN Glucose (74-106) mg/dL POC Glucometer (74 to 106) mg/dL Hemoglobin A1c (4.5-6.0) % Lactic Acid (0.4-2.0) Calcium (8.4-10.2) mg/dL Magnesium (1.6-2.3) mg/dL Total Bilirubin (0.2-1.3) mg/dL AST (14-36) U/L ALT (0-35) U/L Alkaline Phosphatase (38-126) U/L Creatine Kinase (30-135) U/L Troponin I < 0.012 < 0.012 (0.000-0.034) ng/mL NT-Pro-B Natriuret Pep (0-900) pg/mL Serum Total Protein (6.3-8.2) g/dL Albumin (3.5-5.0) g/dL Prealbumin (17.6-36.0) mg/dL Lipase (23-300) U/L Urine Color (YELLOW) Urine Appearance (CLEAR) Urine pH (5-6) Ur Specific [place] (1.005-1.025) Urine Protein (Negative) Urine Ketones (NEGATIVE) Urine Blood (0-5) Joshua/ul Urine Nitrite (NEGATIVE) Urine Bilirubin (NEGATIVE) Urine Urobilinogen (0-1) mg/dL Ur Leukocyte Esterase (NEGATIVE) Urine WBC (Auto) (0-5) /HPF Urine RBC (Auto) (0-2) /HPF U Epithel Cells (Auto) (FEW) /HPF Urine Bacteria (Auto) (NEGATIVE) /HPF U Non-Squamous Epi Cells (FEW) /HPF Urine Mucus (Auto) (NEGATIVE) /HPF Urine Yeast (Budding) (NEGATIVE) /HPF Urine Culture Reflexed (NO) Urine Glucose (NEGATIVE) mg/dL C. difficile Screen NEGATIVE (NEGATIVE) C.difficile 027-NAP1-B1 PRESUMPTIVE NEGATIVE (NEGATIVE) Influenza Type A Ag (NEGATIVE) Influenza Type B Ag (NEGATIVE) RSV (PCR) (Negative) SARS-CoV-2 (PCR) (NEGATIVE) Slides for Path Review 02/06/21 02/07/21 Range/Units 23:56 07:20 WBC (4.0-10.5) K/mm3 RBC (4.1-5.4) M/mm3 Hgb (12.0-16.0) gm/dl Hct (35-47) % MCV (78-100) fl MCH (26-32) pg MCHC (32-36) g/dl RDW (11.5-14.0) % Plt Count (150-450) K/mm3 MPV (7.5-11.0) fl Gran % (36.0-66.0) % Eos # (Auto) (0-0.5) Absolute Lymphs (auto) (1.0-4.6) Absolute Monos (auto) (0.0-1.3) Lymphocytes % (24.0-44.0) % Monocytes % (0.0-12.0) % Eosinophils % (0.00-5.0) % Basophils % (0.0-0.4) % Absolute Granulocytes (1.4-6.9) Basophils # (0-0.4) Sodium (137-145) mmol/L Potassium (3.5-5.1) mmol/L Chloride (98-107) mmol/L Carbon Dioxide (22-30) mmol/L Anion Gap (5-15) MEQ/L BUN (7-17) mg/dL Creatinine (0.52-1.04) mg/dL Estimated GFR ML/MIN Glucose (74-106) mg/dL POC Glucometer 96 124 H (74 to 106) mg/dL Hemoglobin A1c (4.5-6.0) % Lactic Acid (0.4-2.0) Calcium (8.4-10.2) mg/dL Magnesium (1.6-2.3) mg/dL Total Bilirubin (0.2-1.3) mg/dL AST (14-36) U/L ALT (0-35) U/L Alkaline Phosphatase (38-126) U/L Creatine Kinase (30-135) U/L Troponin I (0.000-0.034) ng/mL NT-Pro-B Natriuret Pep (0-900) pg/mL Serum Total Protein (6.3-8.2) g/dL Albumin (3.5-5.0) g/dL Prealbumin (17.6-36.0) mg/dL Lipase (23-300) U/L Urine Color (YELLOW) Urine Appearance (CLEAR) Urine pH (5-6) Ur Specific [place] (1.005-1.025) Urine Protein (Negative) Urine Ketones (NEGATIVE) Urine Blood (0-5) Joshua/ul Urine Nitrite (NEGATIVE) Urine Bilirubin (NEGATIVE) Urine Urobilinogen (0-1) mg/dL Ur Leukocyte Esterase (NEGATIVE) Urine WBC (Auto) (0-5) /HPF Urine RBC (Auto) (0-2) /HPF U Epithel Cells (Auto) (FEW) /HPF Urine Bacteria (Auto) (NEGATIVE) /HPF U Non-Squamous Epi Cells (FEW) /HPF Urine Mucus (Auto) (NEGATIVE) /HPF Urine Yeast (Budding) (NEGATIVE) /HPF Urine Culture Reflexed (NO) Urine Glucose (NEGATIVE) mg/dL C. difficile Screen (NEGATIVE) C.difficile 027-NAP1-B1 (NEGATIVE) Influenza Type A Ag (NEGATIVE) Influenza Type B Ag (NEGATIVE) RSV (PCR) (Negative) SARS-CoV-2 (PCR) (NEGATIVE) Slides for Path Review Radiology Exams: Radiology Procedures Category Date Time Status ABDOMEN AND PELVIS W/0 CONTRAS [CT] Stat Exams 02/06/21 10:29 Completed CHEST 1 VIEW (PORTABLE) Stat Exams 02/06/21 10:29 Completed Assessment/Plan (1) Acute UTI Current Visit: Yes Status: Acute Assessment & Plan: culture pending, on levaquin emperically Code(s): N39.0 - URINARY TRACT INFECTION, SITE NOT SPECIFIED (2) Weakness Current Visit: Yes Status: Acute Assessment & Plan: PT consulted, patient had horrible living conditions, needs placement on discharge. Code(s): R53.1 - WEAKNESS (3) Pulmonary embolism associated with COVID-19 Current Visit: No Status: Acute Code(s): U07.1 - COVID-19; I26.99 - OTHER PULMONARY EMBOLISM WITHOUT ACUTE COR PULMONALE (4) Poor social situation Current Visit: Yes Status: Acute Code(s): Z65.9 - PROBLEM RELATED TO UNSPECIFIED PSYCHOSOCIAL CIRCUMSTANCES (5) Poor hygiene Current Visit: Yes Status: Acute Code(s): R46.0 - VERY LOW LEVEL OF PERSONAL HYGIENE
[2021-02-07 09:44] LABS: ALBUMIN 2.6 g/dL (3.5-5.0); ALKALINE PHOSPHATASE 73 U/L (38-126); BLOOD UREA NITROGEN 32 mg/dL (7-17); CHLORIDE 104 mmol/L (98-107); Calcium 8.2 mg/dL (8.4-10.2); Carbon Dioxide 29 mmol/L (22-30); Creatinine 1 0.87 mg/dL (0.52-1.04); EST GLOMERULAR FILTRATION RATE > 60.0 ML/MIN; Glucose 107 mg/dL (74-106); Potassium 3.2 mmol/L (3.5-5.1); SGOT/AST 28 U/L (14-36); SGPT/ALT 12 U/L (0-35); SODIUM 138 mmol/L (137-145); Total Protein 5.3 g/dL (6.3-8.2)
[2021-02-07] MEDS: Levofloxacin 500MG/100ML D5W 500 MG/100 ML BAG IV SCH (10:01)
[2021-02-07] MEDS: Diflucan 100 MG PO SCH (10:02)
[2021-02-07] MEDS: Coreg 6.25 MG PO SCH ×2 (10:02→21:07)
[2021-02-07] MEDS: PROTONIX 40 MG IV IV SCH (10:02)
[2021-02-07] MEDS: NYSTOP POWDER 15 GM TP SCH ×2 (10:02→21:08)
[2021-02-07 10:42] LABS: Absolute Neutrophil Ct (ANC) 10.22 (1.4-6.9); BASOPHIL % 0.1 % (0.0-0.4); Basophil (Absolute #) 0.01 (0-0.4); Eosinophil (Absolute #) 0.12 (0-0.5); Hematocrit 29.7 % (35-47); Hemoglobin 8.7 gm/dl (12.0-16.0); Lymphocyte (Absolute #) 1.13 (1.0-4.6); Mean Cell Volume 75.6 fl (78-100); Mean Corpuscular Hemoglobin 22.1 pg (26-32); Mean Corpuscular Hgb Concent. 29.3 g/dl (32-36); Mean Platelet Volume 10.1 fl (7.5-11.0); Monocyte (Absolute #) 1.11 (0.0-1.3); Monocytes % 8.8 % (0.0-12.0); Neutrophil % 81.1 % (36.0-66.0); Platelet Count 427 K/mm3 (150-450); Red Blood Count 3.93 M/mm3 (4.1-5.4); Red Cell Distribution Width 17.4 % (11.5-14.0); White Blood Count 12.6 K/mm3 (4.0-10.5)
[2021-02-07] MEDS: Sodium Chloride 0.9% 1000 ML 1,000 ML IV SCH (22:03)
[2021-02-08 05:59] LABS: Absolute Neutrophil Ct (ANC) 7.09 (1.4-6.9); BASOPHIL % 0.1 % (0.0-0.4); Basophil (Absolute #) 0.01 (0-0.4); Eosinophil % 1.4 % (0.00-5.0); Eosinophil (Absolute #) 0.13 (0-0.5); Hematocrit 30.6 % (35-47); Hemoglobin 8.8 gm/dl (12.0-16.0); Lymphocyte (Absolute #) 1.15 (1.0-4.6); Lymphocytes % 12.4 % (24.0-44.0); Mean Cell Volume 76.1 fl (78-100); Mean Corpuscular Hemoglobin 21.9 pg (26-32); Mean Corpuscular Hgb Concent. 28.8 g/dl (32-36); Mean Platelet Volume 10.1 fl (7.5-11.0); Monocyte (Absolute #) 0.91 (0.0-1.3); Monocytes % 9.8 % (0.0-12.0); Neutrophil % 76.3 % (36.0-66.0); Platelet Count 438 K/mm3 (150-450); Red Blood Count 4.02 M/mm3 (4.1-5.4); Red Cell Distribution Width 17.6 % (11.5-14.0); White Blood Count 9.3 K/mm3 (4.0-10.5)
[2021-02-08 07:00] LABS: ANION GAP 6.5 MEQ/L (5-15); BLOOD UREA NITROGEN 18 mg/dL (7-17); CHLORIDE 105 mmol/L (98-107); Calcium 8.2 mg/dL (8.4-10.2); Carbon Dioxide 30 mmol/L (22-30); Creatinine 1 0.73 mg/dL (0.52-1.04); EST GLOMERULAR FILTRATION RATE > 60.0 ML/MIN; Glucose 101 mg/dL (74-106); Potassium 3.1 mmol/L (3.5-5.1); SODIUM 138 mmol/L (137-145)
[2021-02-08 07:39] LABS: Slide Review 1 YES
[2021-02-08] MEDS: Sodium Chloride 0.9% 1000 ML 1,000 ML IV SCH ×2 (07:44→19:37)
--- NOTE | 2021-02-08 08:21 | PCM.NOTE ---
Date and Time: 02/08/21819 Subjective Assessment: patient c/o legs hurting and uncomfortable. very hard of hearing, no other complaints. Objective Exam General Appearance: no apparent distress, obese Neurologic Exam: alert Skin Exam: other (see pictures in chart and notes) Wound Assessment: Skin/Wound Assessment Wound/Incision Assessment Start: 02/06/21 17:00 Text: Status: Active Freq: Q6H Protocol: Document 02/08/21 02:00 PANCHO (Rec: 02/08/21 02:24 PANCHO [id number]) Wound Photo Comment: SEE PICTURES NOTED IN CHART Respiratory Exam: normal breath sounds, lungs clear, No respiratory distress Cardiovascular Exam: regular rate/rhythm, normal heart sounds Gastrointestinal/Abdomen Exam: soft, No tenderness, No mass Extremity Exam: normal inspection, normal range of motion OBJECTIVE DATA Vital Signs: Vital Signs - 24 hr Temp Pulse Resp BP Pulse Ox 02/08/21 04:00 97.9 F 83 24 187/86 93 L 02/08/21 00:00 97.6 F 80 22 151/68 93 L 02/07/21 20:00 97.9 F 96 H 22 145/66 93 L 02/07/21 16:00 96.5 F 85 18 139/65 97 02/07/21 11:36 98.7 F 84 18 147/65 95 Pain Assessment - Last Documented Pain Intensity 0 Pain Scale Used 0-10 Pain Scale,FLACC Intake and Output: Intake & Output 02/05/21 02/06/21 02/07/21 02/08/21 11:59 11:59 11:59 11:59 Intake Total 1919 1679 Output Total 200 650 925 Balance -200 1269 754 Weight 97.9 kg 94.7 kg 97.1 kg Lab Results: Lab Results-Last 24 Hours 02/07/21 02/07/21 02/07/21 Range/Units 08:30 08:30 11:28 WBC 12.6 H (4.0-10.5) K/mm3 RBC 3.93 L (4.1-5.4) M/mm3 Hgb 8.7 L D (12.0-16.0) gm/dl Hct 29.7 L (35-47) % MCV 75.6 L (78-100) fl MCH 22.1 L (26-32) pg MCHC 29.3 L (32-36) g/dl RDW 17.4 H (11.5-14.0) % Plt Count 427 (150-450) K/mm3 MPV 10.1 (7.5-11.0) fl Gran % 81.1 H (36.0-66.0) % Eos # (Auto) 0.12 (0-0.5) Absolute Lymphs (auto) 1.13 (1.0-4.6) Absolute Monos (auto) 1.11 (0.0-1.3) Lymphocytes % 9.0 L (24.0-44.0) % Monocytes % 8.8 (0.0-12.0) % Eosinophils % 1.0 (0.00-5.0) % Basophils % 0.1 (0.0-0.4) % Absolute Granulocytes 10.22 H (1.4-6.9) Basophils # 0.01 (0-0.4) Sodium 138 (137-145) mmol/L Potassium 3.2 L D (3.5-5.1) mmol/L Chloride 104 (98-107) mmol/L Carbon Dioxide 29 (22-30) mmol/L Anion Gap 8.0 (5-15) MEQ/L BUN 32 H (7-17) mg/dL Creatinine 0.87 (0.52-1.04) mg/dL Estimated GFR > 60.0 ML/MIN Glucose 107 H (74-106) mg/dL POC Glucometer 128 H (74 to 106) mg/dL Calcium 8.2 L D (8.4-10.2) mg/dL Total Bilirubin 0.30 (0.2-1.3) mg/dL AST 28 (14-36) U/L ALT 12 (0-35) U/L Alkaline Phosphatase 73 (38-126) U/L Serum Total Protein 5.3 L (6.3-8.2) g/dL Albumin 2.6 L (3.5-5.0) g/dL Slides for Path Review 02/07/21 02/07/21 02/08/21 Range/Units 16:03 21:20 05:15 WBC 9.3 (4.0-10.5) K/mm3 RBC 4.02 L (4.1-5.4) M/mm3 Hgb 8.8 L (12.0-16.0) gm/dl Hct 30.6 L (35-47) % MCV 76.1 L (78-100) fl MCH 21.9 L (26-32) pg MCHC 28.8 L (32-36) g/dl RDW 17.6 H (11.5-14.0) % Plt Count 438 (150-450) K/mm3 MPV 10.1 (7.5-11.0) fl Gran % 76.3 H (36.0-66.0) % Eos # (Auto) 0.13 (0-0.5) Absolute Lymphs (auto) 1.15 (1.0-4.6) Absolute Monos (auto) 0.91 (0.0-1.3) Lymphocytes % 12.4 L (24.0-44.0) % Monocytes % 9.8 (0.0-12.0) % Eosinophils % 1.4 (0.00-5.0) % Basophils % 0.1 (0.0-0.4) % Absolute Granulocytes 7.09 H (1.4-6.9) Basophils # 0.01 (0-0.4) Sodium (137-145) mmol/L Potassium (3.5-5.1) mmol/L Chloride (98-107) mmol/L Carbon Dioxide (22-30) mmol/L Anion Gap (5-15) MEQ/L BUN (7-17) mg/dL Creatinine (0.52-1.04) mg/dL Estimated GFR ML/MIN Glucose (74-106) mg/dL POC Glucometer 130 H 145 H (74 to 106) mg/dL Calcium (8.4-10.2) mg/dL Total Bilirubin (0.2-1.3) mg/dL AST (14-36) U/L ALT (0-35) U/L Alkaline Phosphatase (38-126) U/L Serum Total Protein (6.3-8.2) g/dL Albumin (3.5-5.0) g/dL Slides for Path Review YES 02/08/21 02/08/21 Range/Units 05:15 07:24 WBC (4.0-10.5) K/mm3 RBC (4.1-5.4) M/mm3 Hgb (12.0-16.0) gm/dl Hct (35-47) % MCV (78-100) fl MCH (26-32) pg MCHC (32-36) g/dl RDW (11.5-14.0) % Plt Count (150-450) K/mm3 MPV (7.5-11.0) fl Gran % (36.0-66.0) % Eos # (Auto) (0-0.5) Absolute Lymphs (auto) (1.0-4.6) Absolute Monos (auto) (0.0-1.3) Lymphocytes % (24.0-44.0) % Monocytes % (0.0-12.0) % Eosinophils % (0.00-5.0) % Basophils % (0.0-0.4) % Absolute Granulocytes (1.4-6.9) Basophils # (0-0.4) Sodium 138 (137-145) mmol/L Potassium 3.1 L (3.5-5.1) mmol/L Chloride 105 (98-107) mmol/L Carbon Dioxide 30 (22-30) mmol/L Anion Gap 6.5 (5-15) MEQ/L BUN 18 H (7-17) mg/dL Creatinine 0.73 (0.52-1.04) mg/dL Estimated GFR > 60.0 ML/MIN Glucose 101 (74-106) mg/dL POC Glucometer 104 (74 to 106) mg/dL Calcium 8.2 L (8.4-10.2) mg/dL Total Bilirubin (0.2-1.3) mg/dL AST (14-36) U/L ALT (0-35) U/L Alkaline Phosphatase (38-126) U/L Serum Total Protein (6.3-8.2) g/dL Albumin (3.5-5.0) g/dL Slides for Path Review Radiology Exams: Radiology Procedures Category Date Time Status ABDOMEN AND PELVIS W/0 CONTRAS [CT] Stat Exams 02/06/21 10:29 Completed CHEST 1 VIEW (PORTABLE) Stat Exams 02/06/21 10:29 Completed Assessment/Plan (1) Acute UTI Current Visit: Yes Status: Acute Assessment & Plan: culture pending, on levaquin Code(s): N39.0 - URINARY TRACT INFECTION, SITE NOT SPECIFIED (2) Weakness Current Visit: Yes Status: Acute Code(s): R53.1 - WEAKNESS (3) Pulmonary embolism associated with COVID-19 Current Visit: No Status: Acute Code(s): U07.1 - COVID-19; I26.99 - OTHER PULMONARY EMBOLISM WITHOUT ACUTE COR PULMONALE (4) Poor social situation Current Visit: Yes Status: Acute Assessment & Plan: patient clearly not able to care for herself, needs rehab stay and she agreed to this on admission when I discussed. discharge planning consulted. Code(s): Z65.9 - PROBLEM RELATED TO UNSPECIFIED PSYCHOSOCIAL CIRCUMSTANCES (5) Poor hygiene Current Visit: Yes Status: Acute Code(s): R46.0 - VERY LOW LEVEL OF PERSONAL HYGIENE
[2021-02-08] MEDS: Diflucan 100 MG PO SCH (08:48)
[2021-02-08] MEDS: NYSTOP POWDER 15 GM TP SCH ×2 (08:48→23:14)
[2021-02-08] MEDS: Coreg 6.25 MG PO SCH ×2 (08:48→21:19)
[2021-02-08] MEDS: TYLENOL 325 MG PO PRN (08:48)
[2021-02-08] MEDS: PROTONIX 40 MG IV IV SCH (08:49)
[2021-02-08] MEDS: Levofloxacin 500MG/100ML D5W 500 MG/100 ML BAG IV SCH (08:52)
[2021-02-09] MEDS ORDERED: NORVASC 5 MG ONE (00:10)
[2021-02-09] MEDS ORDERED: NORVASC 5 MG PO ONE (00:33)
[2021-02-09] MEDS ORDERED: Cardizem IV 50 MG/10 ML IV ONE ×3 (02:13→02:21)
[2021-02-09] MEDS ORDERED: CARDIZEM DRIP 100 MG/100 ML D5W 100 ML IV ONE (02:14)
[2021-02-09] MEDS ORDERED: CARDIZEM DRIP 100 MG/100 ML D5W 100 ML IV PRN (02:20)
[2021-02-09] MEDS: Coreg 6.25 MG PO SCH ×2 (09:57→21:44)
[2021-02-09] MEDS: Cardizem 30 MG PO SCH ×5 (09:57→21:44)
[2021-02-09] MEDS: PROTONIX 40 MG IV IV SCH (09:58)
[2021-02-09] MEDS: Diflucan 100 MG PO SCH (09:58)
[2021-02-09] MEDS: NYSTOP POWDER 15 GM TP SCH ×2 (10:04→21:44)
[2021-02-09] MEDS: NORCO 5/325 MG PO PRN ×3 (10:13→22:18)
[2021-02-09] MEDS: Levofloxacin 500MG/100ML D5W 500 MG/100 ML BAG IV SCH (12:11)
--- NOTE | 2021-02-09 17:08 | PCM.NOTE ---
Date and Time: 02/09/21 1703 Subjective Assessment: Late entry for 02/09/21, 0750. Pt had elevated HR last night, found to have afib with RVR (apparently she has a history of same) - HR up to 150 between 2:30-3 am. Was given cardizem 5mg IV then 5mg/hr (bp decreased to 84 systolic) and moved to ICU. She converted and HR has been in the 70s-80s since on 5mg cardizem drip. This morning she is c/o RLE pain although she seems a little confused about which leg is actually hurting. - Review of Systems Constitutional: No Fever Abdominal/Gastrointestinal: No Vomiting Objective Exam General Appearance: no apparent distress, obese Neurologic Exam: alert, cooperative, disoriented (oriented to place, not time although knows holiday coming up is "ho ho ho") Skin Exam: warm, dry, other (scabs on LE with chronic skin changes. RLE is bent at the knee and she is resistant to straightening it out or any movement really.) Wound Assessment: Skin/Wound Assessment Wound/Incision Assessment Start: 02/06/21 17:00 Text: Status: Active Freq: Q6H Protocol: Document 02/09/21 14:00 [facility] ([facility]09[facility]21 [id number] Wound Photo Comment: SEE PICTURES NOTED IN CHART Ears, Nose, Throat Exam: moist mucous membranes Neck Exam: normal inspection Respiratory Exam: normal breath sounds, lungs clear, No crackles/rales, No rhonchi, No wheezing OBJECTIVE DATA Vital Signs: Vital Signs - 24 hr Temp Pulse Resp BP BP Pulse Ox 02/09/21 16:00 72 02/09/21 12:00 98.1 F 74 14 169/82 96 02/09/21 08:00 99.1 F 82 13 178/87 93 L 02/09/21 06:00 79 26 H 149/74 02/09/21 05:00 81 28 H 153/81 93 L 02/09/21 04:00 82 02/09/21 03:49 79 28 H 153/81 02/09/21 03:00 79 161/68 91 L 02/09/21 02:49 156 H 32 H 112/86 02/09/21 02:45 132 H 113/89 92 L 02/09/21 02:40 126 H 84/72 91 L 02/09/21 02:30 99 F 129 H 32 H 149/114 93 L 02/08/21 20:00 98.2 F 87 22 172/77 96 Pain Assessment - Last Documented Pain Intensity 0 Pain Scale Used 0-10 Pain Scale,FLACC Intake and Output: Intake & Output 02/07/21 02/08/21 02/09/21 02/10/21 11:59 11:59 11:59 11:59 Intake Total 1919 1919 1718 Output Total 641 361 9929 Balance 1269 994 -2968 Weight 94.7 kg 97.1 kg 97.1 kg Lab Results: Lab Results-Last 24 Hours 02/08/21 02/09/21 02/09/21 Range/Units 21:43 08:22 12:33 POC Glucometer 107 H 104 126 H (74 to 106) mg/dL Multi-Disciplinary Progress Notes: Multi-Disciplinary Progress Notes 02/09/21 15:42 Physical Therapy Note by Carol/lic.[id number] PPepe. HELD TODAY PT. TRANSFERRED TO ICU D/T A FIB. CONT. W/ LOOSE STOOLS WELL AND C/O SEVERE LE PN. WILL ATTEMPT TOMORROW. Initialized on 02/09/21 15:42 - END OF NOTE 02/09/21 15:05 Case Management Note by Azalia Muniz REPORT FILED WITH APS VIA EMAIL [email or web address] Initialized on 02/09/21 15:05 - END OF NOTE 02/09/21 14:21 Case Management Note by Azalia Muniz REFERRAL FAXED TO [facility]. THEY MAY NOT HAVE A BED UNTIL MONDAY BUT THEY WILL LOOK AT THEIR BED SITUATION AND GET BACK WITH US Initialized on 02/09/21 14:21 - END OF NOTE 02/09/21 11:53 Case Management Note by Azalia Muniz UNABLE TO TAKE PATIENT. WILL SEND REFERRAL TO [facility] PATIENT MAY NEED MORE HEATING ENGINEER PLACEMENT THAN ANTHEM WILL COVER Initialized on 02/09/21 11:53 - END OF NOTE Assessment/Plan (1) Atrial fibrillation with rapid ventricular response Current Visit: Yes Status: Resolved Assessment & Plan: started po cardizem 30mg QID Code(s): I48.91 - UNSPECIFIED ATRIAL FIBRILLATION (2) Leg pain Current Visit: Yes Status: Acute Qualifiers: Laterality: right Qualified Code(s): M79.604 - Pain in right leg Assessment & Plan: Will give small dose of pain meds. May be positional. Seems to have very poor self awareness. (3) Acute UTI Current Visit: Yes Status: Acute Assessment & Plan: on levaquin day #3. Code(s): N39.0 - URINARY TRACT INFECTION, SITE NOT SPECIFIED (4) Poor hygiene Current Visit: Yes Status: Chronic Assessment & Plan: With numerous skin defects and changes. on fluconazole day #3. Code(s): R46.0 - VERY LOW LEVEL OF PERSONAL HYGIENE (5) Poor social situation Current Visit: Yes Status: Chronic Code(s): Z65.9 - PROBLEM RELATED TO UNSPECIFIED PSYCHOSOCIAL CIRCUMSTANCES (6) Weakness Current Visit: Yes Status: Acute Code(s): R53.1 - WEAKNESS
[2021-02-09] MEDS: Sodium Chloride 0.9% 1000 ML 1,000 ML IV SCH (21:44)
[2021-02-10] MEDS: NORCO 5/325 MG PO PRN ×2 (07:49→11:32)
[2021-02-10] MEDS: Cardizem 30 MG PO SCH ×4 (07:50→21:10)
[2021-02-10] MEDS: Coreg 6.25 MG PO SCH ×2 (07:51→21:10)
--- NOTE | 2021-02-10 09:15 | PCM.NOTE ---
Date and Time: 02/10/21910 Subjective Assessment: heart rate has been stable, bp significantly elevated today. tolerating po intake, no new complaints or concerns. NH placement pending. Objective Exam General Appearance: no apparent distress, obese Neurologic Exam: alert, oriented x 3, cooperative Wound Assessment: Skin/Wound Assessment Wound/Incision Assessment Start: 02/06/21 17:00 Text: Status: Active Freq: Q6H Protocol: Document 02/10/21 08:00 BA (Rec: 02/10/21 08:18 BA [id number]) Wound Photo Photo Taken Yes Respiratory Exam: normal breath sounds, lungs clear, No respiratory distress Cardiovascular Exam: regular rate/rhythm, normal heart sounds Gastrointestinal/Abdomen Exam: soft, No tenderness, No mass OBJECTIVE DATA Vital Signs: Vital Signs - 24 hr Temp Pulse Resp BP Pulse Ox 02/10/21 08:00 98.5 F 76 18 195/85 96 02/10/21 04:00 99.5 F 70 16 190/83 90 L 02/10/21 00:00 99.1 F 69 20 145/67 90 L 02/09/21 23:52 72 02/09/21 20:00 98.7 F 72 16 165/74 89 L 02/09/21 16:00 99.9 F 72 20 161/70 93 L 02/09/21 12:00 98.1 F 74 14 169/82 96 Pain Assessment - Last Documented Pain Intensity 0 [facility] Intake and Output: Intake & Output 02/07/21 02/08/21 02/09/21 02/10/21 11:59 11:59 11:59 11:59 Intake Total 1919 1919 1718 705 Output Total 965 084 1039 1700 Balance 1269 994 -7342 -995 Weight 94.7 kg 97.1 kg 93.8 kg Lab Results: Lab Results-Last 24 Hours 02/09/21 02/09/21 02/09/21 Range/Units 12:33 17:00 22:21 POC Glucometer 126 H 119 H 110 H (74 to 106) mg/dL 02/10/21 Range/Units 06:55 POC Glucometer 104 (74 to 106) mg/dL Multi-Disciplinary Progress Notes: Multi-Disciplinary Progress Notes 02/09/21 15:42 Physical Therapy Note by Carol/lic.[id number],Alejandra P.T. HELD TODAY PT. TRANSFERRED TO ICU D/T A FIB. CONT. W/ LOOSE STOOLS WELL AND C/O SEVERE LE PN. WILL ATTEMPT TOMORROW. Initialized on 02/09/21 15:42 - END OF NOTE 02/09/21 15:05 Case Management Note by Azalia Muniz REPORT FILED WITH APS VIA EMAIL Initialized on 02/09/21 15:05 - END OF NOTE 02/09/21 14:21 Case Management Note by Azalia Muniz REFERRAL FAXED TO [facility]. THEY MAY NOT HAVE A BED UNTIL MONDAY BUT THEY WILL LOOK AT THEIR BED SITUATION AND GET BACK WITH US Initialized on 02/09/21 14:21 - END OF NOTE 02/09/21 11:53 Case Management Note by Azalia MunizDERitika UNABLE TO TAKE PATIENT. WILL SEND REFERRAL TO [facility] PATIENT MAY NEED MORE ASSISTANT VICE PRESIDENT PLACEMENT THAN ANTHEM WILL COVER Initialized on 02/09/21 11:53 - END OF NOTE Assessment/Plan (1) Atrial fibrillation with rapid ventricular response Current Visit: Yes Status: Acute Assessment & Plan: currently rate controlled with cardizem po and coreg, will add eliquis (was on in the past but noncompliant) Code(s): I48.91 - UNSPECIFIED ATRIAL FIBRILLATION (2) Hypertension Current Visit: Yes Status: Acute Assessment & Plan: add losartan 50mg daily (was on 100mg previously but has been started on cardizem since admission) Code(s): I10 - ESSENTIAL (PRIMARY) HYPERTENSION (3) Acute UTI Current Visit: Yes Status: Acute Assessment & Plan: e coli and proteus sens to levaquin, today will be day 4 of therapy Code(s): N39.0 - URINARY TRACT INFECTION, SITE NOT SPECIFIED (4) Weakness Current Visit: Yes Status: Acute Code(s): R53.1 - WEAKNESS (5) Poor social situation Current Visit: Yes Status: Chronic Code(s): Z65.9 - PROBLEM RELATED TO UNSPECIFIED PSYCHOSOCIAL CIRCUMSTANCES (6) Poor hygiene Current Visit: Yes Status: Chronic Code(s): R46.0 - VERY LOW LEVEL OF PERSONAL HYGIENE
[2021-02-10 10:12] LABS: Absolute Neutrophil Ct (ANC) 8.91 (1.4-6.9); BASOPHIL % 0.2 % (0.0-0.4); Basophil (Absolute #) 0.02 (0-0.4); Eosinophil % 2.4 % (0.00-5.0); Eosinophil (Absolute #) 0.27 (0-0.5); Hemoglobin 10.2 gm/dl (12.0-16.0); Lymphocytes % 9.7 % (24.0-44.0); Mean Cell Volume 73.9 fl (78-100); Mean Corpuscular Hemoglobin 22.2 pg (26-32); Mean Platelet Volume 9.7 fl (7.5-11.0); Monocyte (Absolute #) 1.01 (0.0-1.3); Monocytes % 8.9 % (0.0-12.0); Neutrophil % 78.8 % (36.0-66.0); Platelet Count 477 K/mm3 (150-450); Red Cell Distribution Width 17.5 % (11.5-14.0); White Blood Count 11.3 K/mm3 (4.0-10.5)
[2021-02-10] MEDS: PROTONIX 40 MG IV IV SCH (10:19)
[2021-02-10] MEDS: Cozaar 50 MG PO SCH (10:19)
[2021-02-10] MEDS: Levofloxacin 500MG/100ML D5W 500 MG/100 ML BAG IV SCH (10:20)
[2021-02-10] MEDS: NYSTOP POWDER 15 GM TP SCH ×2 (10:20→21:11)
[2021-02-10] MEDS: ELIQUIS 2.5 MG TABLET PO SCH ×2 (10:20→21:10)
[2021-02-10 10:27] LABS: ANION GAP 9.8 MEQ/L (5-15); BLOOD UREA NITROGEN 10 mg/dL (7-17); CHLORIDE 97 mmol/L (98-107); Calcium 8.4 mg/dL (8.4-10.2); Carbon Dioxide 30 mmol/L (22-30); Creatinine 1 0.63 mg/dL (0.52-1.04); EST GLOMERULAR FILTRATION RATE > 60.0 ML/MIN; Glucose 143 mg/dL (74-106); Potassium 3.5 mmol/L (3.5-5.1); SODIUM 133 mmol/L (137-145)
[2021-02-10] MEDS: HYDROCODONE-ACETAMIN 10-325 MG PO PRN (23:51)
[2021-02-11 06:16] LABS: Absolute Neutrophil Ct (ANC) 7.02 (1.4-6.9); BASOPHIL % 0.2 % (0.0-0.4); Basophil (Absolute #) 0.02 (0-0.4); Eosinophil % 3.1 % (0.00-5.0); Eosinophil (Absolute #) 0.32 (0-0.5); Hematocrit 32.6 % (35-47); Hemoglobin 9.7 gm/dl (12.0-16.0); Lymphocyte (Absolute #) 1.62 (1.0-4.6); Lymphocytes % 15.9 % (24.0-44.0); Mean Cell Volume 73.6 fl (78-100); Mean Corpuscular Hemoglobin 21.9 pg (26-32); Mean Corpuscular Hgb Concent. 29.8 g/dl (32-36); Mean Platelet Volume 9.5 fl (7.5-11.0); Monocyte (Absolute #) 1.23 (0.0-1.3); Neutrophil % 68.8 % (36.0-66.0); Platelet Count 478 K/mm3 (150-450); Red Blood Count 4.43 M/mm3 (4.1-5.4); Red Cell Distribution Width 17.4 % (11.5-14.0); White Blood Count 10.2 K/mm3 (4.0-10.5)
[2021-02-11 06:22] LABS: ANION GAP 6.6 MEQ/L (5-15); BLOOD UREA NITROGEN 11 mg/dL (7-17); CHLORIDE 95 mmol/L (98-107); Calcium 8.1 mg/dL (8.4-10.2); Carbon Dioxide 33 mmol/L (22-30); Creatinine 1 0.65 mg/dL (0.52-1.04); EST GLOMERULAR FILTRATION RATE > 60.0 ML/MIN; Glucose 97 mg/dL (74-106); MAGNESIUM 1.6 mg/dL (1.6-2.3); Potassium 3.4 mmol/L (3.5-5.1); SODIUM 131 mmol/L (137-145)
--- NOTE | 2021-02-11 09:42 | PCM.NOTE ---
Date and Time: 02/11/21939 Subjective Assessment: patient states she "doesn't feel good" she denies pain, ate most of her pancakes from breakfast so tolerating po intake. Objective Exam General Appearance: no apparent distress, obese Neurologic Exam: alert, cooperative Wound Assessment: Skin/Wound Assessment Wound/Incision Assessment Start: 02/06/21 17:00 Text: Status: Active Freq: Q6H Protocol: Document 02/11/21 02:00 TC (Rec: 02/11/21 02:06 TC [id number]) Wound Photo Photo Taken No Respiratory Exam: normal breath sounds, lungs clear, No respiratory distress Cardiovascular Exam: regular rate/rhythm, normal heart sounds Gastrointestinal/Abdomen Exam: soft, No tenderness, No mass OBJECTIVE DATA Vital Signs: Vital Signs - 24 hr Temp Pulse Resp BP Pulse Ox 02/11/21 08:00 98.0 F 80 21 92 L 02/11/21 04:00 98.2 F 82 20 150/76 92 L 02/10/21 23:53 100.3 F 85 26 H 127/64 92 L 02/10/21 20:00 98.9 F 80 25 H 124/68 93 L 02/10/21 16:00 98.3 F 88 20 159/77 97 02/10/21 11:32 98.6 F 92 H 22 152/76 94 L Pain Assessment - Last Documented Pain Intensity 0 Pain Scale Used FLACC Intake and Output: Intake & Output 02/08/21 02/09/21 02/10/21 02/11/21 11:59 11:59 11:59 11:59 Intake Total 4379 1718 705 200 Output Total 922 5800 1700 700 Balance 994 -4082 -995 -500 Weight 97.1 kg 93.8 kg 92.9 kg Lab Results: Lab Results-Last 24 Hours 02/10/21 02/10/21 02/10/21 Range/Units 10:02 10:02 12:01 WBC 11.3 H (4.0-10.5) K/mm3 RBC 4.60 (4.1-5.4) M/mm3 Hgb 10.2 L (12.0-16.0) gm/dl Hct 34.0 L (35-47) % MCV 73.9 L (78-100) fl MCH 22.2 L (26-32) pg MCHC 30.0 L (32-36) g/dl RDW 17.5 H (11.5-14.0) % Plt Count 477 H (150-450) K/mm3 MPV 9.7 (7.5-11.0) fl Gran % 78.8 H (36.0-66.0) % Eos # (Auto) 0.27 (0-0.5) Absolute Lymphs (auto) 1.10 (1.0-4.6) Absolute Monos (auto) 1.01 (0.0-1.3) Lymphocytes % 9.7 L (24.0-44.0) % Monocytes % 8.9 (0.0-12.0) % Eosinophils % 2.4 (0.00-5.0) % Basophils % 0.2 (0.0-0.4) % Absolute Granulocytes 8.91 H (1.4-6.9) Basophils # 0.02 (0-0.4) Sodium 133 L (137-145) mmol/L Potassium 3.5 (3.5-5.1) mmol/L Chloride 97 L (98-107) mmol/L Carbon Dioxide 30 (22-30) mmol/L Anion Gap 9.8 (5-15) MEQ/L BUN 10 (7-17) mg/dL Creatinine 0.63 (0.52-1.04) mg/dL Estimated GFR > 60.0 ML/MIN Glucose 143 H (74-106) mg/dL POC Glucometer 110 H (74 to 106) mg/dL Calcium 8.4 (8.4-10.2) mg/dL Magnesium (1.6-2.3) mg/dL 02/10/21 02/10/21 02/11/21 Range/Units 15:53 21:03 05:30 WBC 10.2 (4.0-10.5) K/mm3 RBC 4.43 (4.1-5.4) M/mm3 Hgb 9.7 L (12.0-16.0) gm/dl Hct 32.6 L (35-47) % MCV 73.6 L (78-100) fl MCH 21.9 L (26-32) pg MCHC 29.8 L (32-36) g/dl RDW 17.4 H (11.5-14.0) % Plt Count 478 H (150-450) K/mm3 MPV 9.5 (7.5-11.0) fl Gran % 68.8 H (36.0-66.0) % Eos # (Auto) 0.32 (0-0.5) Absolute Lymphs (auto) 1.62 (1.0-4.6) Absolute Monos (auto) 1.23 (0.0-1.3) Lymphocytes % 15.9 L (24.0-44.0) % Monocytes % 12.0 (0.0-12.0) % Eosinophils % 3.1 (0.00-5.0) % Basophils % 0.2 (0.0-0.4) % Absolute Granulocytes 7.02 H (1.4-6.9) Basophils # 0.02 (0-0.4) Sodium (137-145) mmol/L Potassium (3.5-5.1) mmol/L Chloride (98-107) mmol/L Carbon Dioxide (22-30) mmol/L Anion Gap (5-15) MEQ/L BUN (7-17) mg/dL Creatinine (0.52-1.04) mg/dL Estimated GFR ML/MIN Glucose (74-106) mg/dL POC Glucometer 175 H 131 H (74 to 106) mg/dL Calcium (8.4-10.2) mg/dL Magnesium (1.6-2.3) mg/dL 02/11/21 02/11/21 Range/Units 05:30 07:53 WBC (4.0-10.5) K/mm3 RBC (4.1-5.4) M/mm3 Hgb (12.0-16.0) gm/dl Hct (35-47) % MCV (78-100) fl MCH (26-32) pg MCHC (32-36) g/dl RDW (11.5-14.0) % Plt Count (150-450) K/mm3 MPV (7.5-11.0) fl Gran % (36.0-66.0) % Eos # (Auto) (0-0.5) Absolute Lymphs (auto) (1.0-4.6) Absolute Monos (auto) (0.0-1.3) Lymphocytes % (24.0-44.0) % Monocytes % (0.0-12.0) % Eosinophils % (0.00-5.0) % Basophils % (0.0-0.4) % Absolute Granulocytes (1.4-6.9) Basophils # (0-0.4) Sodium 131 L (137-145) mmol/L Potassium 3.4 L (3.5-5.1) mmol/L Chloride 95 L (98-107) mmol/L Carbon Dioxide 33 H (22-30) mmol/L Anion Gap 6.6 (5-15) MEQ/L BUN 11 (7-17) mg/dL Creatinine 0.65 (0.52-1.04) mg/dL Estimated GFR > 60.0 ML/MIN Glucose 97 (74-106) mg/dL POC Glucometer 143 H (74 to 106) mg/dL Calcium 8.1 L (8.4-10.2) mg/dL Magnesium 1.6 (1.6-2.3) mg/dL Multi-Disciplinary Progress Notes: Multi-Disciplinary Progress Notes 02/11/21 08:40 Case Management Note by Azalia Muniz S/W SON- NOTIFIED PATIENT REFERRAL SENT [facility]. HE VERIFIED UNDERSTANDING AND IS AGREEABLE TO THIS PLAN. HE REQUESTS UPDATE WHEN PATIENT IS DCD Initialized on 02/11/21 08:40 - END OF NOTE 02/10/21 14:56 Case Management Note by Azalia Muniz UPDATED CLINICALS WITH PT NOTES FAXED TO [facility] AT THIS TIME Initialized on 02/10/21 14:56 - END OF NOTE 02/10/21 14:39 Physical Therapy Note by Carol/lic.[id number] PT.'S A FIB IS STABLE AT PRESENT. STILL C/O SEVERE R KNEE PN. TENDS TO POSITION R KNEE FLEXED IN BED AND CRY OUT IN PN. COMMUNICATION IS DIFFICULT PT. IS VERY NEW [place] AND EXHIBITS DELAYED RESPONSE TO QUESTIONS. NOT ABLE TO QUANTIFY KNEE PN. PT. NOT ABLE TO ANSWER P.T. WHEN ASKED HOW LONG IT HAS BEEN SINCE SHE HAS WALKED. FAMILY HAS NOT BEEN PRESENT DURING P.T. PT. CONT. W/ MULTIPLE HEALING SKIN EXCORIATIONS FROM CHRONIC INCONTINENCE AT HOME. PT. IN BED UPON P.T. ARRIVAL TO ROOM. PT. ON TELEMETRY, ROBERTSON CATH, AND IV PRESENT. SUPINE TO SIT PERFORMED W/ MOD-MAX ASSIST X 2. PT. DID NOTE DIZZINESS W/ POSITION CHANGE. PT. WAS ABLE TO SIT ON END OF BED FOR ~ 3-4 ' AND MAINTAIN BALANCE W/ SBA AND HOLDING ON TO RAIL. PT. CRIED OUT PN IN R KNEE W/ SUPINE TO SIT AND W/ REPOSITIONING OF HER R LE IN PREP TO WB. L QUAD STRENGTH 3-/5; R 2- /5. PT. PERFORMED SIT TO STAND W/ WALKER W/ MOD-MAX ASSIST X 2. PIVOTED ON L LE W/ MAX ASSIST X 2 W/ ONE EXTRA PERSON TO ASSIST TO MANEUVER CHAIR UNDER HER BUTTOCKS. PT. RESTED COMFORTABLY AND ATE LUNCH IN CHAIR. SOFIA SLING POSITIONED UNDER PT. IN CASE TRANSFER BACK TO BED IS NOT FEASIBLE. PLAN IS TO D/C TO SNF TO CONT. REHAB IN HOPES THAT SHE CAN RETURN HOME W/ SON. WILL CONT. PT 5X/WK UNTIL D/C. Initialized on 02/10/21 14:39 - END OF NOTE 02/10/21 11:30 Case Management Note by Azalia Muniz PLANS TO START PRECERT PROCESS- WILL LIKELY NOT GET APPROVAL BEFORE MONDAY. THEY WILL HOPEFULLY HAVE A BED MONDAY OR MONDAY FOR PATIENT Initialized on 02/10/21 11:30 - END OF NOTE 02/10/21 11:28 Case Management Note by Azalia Muniz CALLED SON TO UPDATE HIM THAT REFERRAL WAS SENT TO [facility]- LEFT MESSAGE. Initialized on 02/10/21 11:28 - END OF NOTE Assessment/Plan (1) Atrial fibrillation with rapid ventricular response Current Visit: Yes Status: Acute Assessment & Plan: currently in sinus rhythm and rate controlled, started on eliquis. overall doing well Code(s): I48.91 - UNSPECIFIED ATRIAL FIBRILLATION (2) Hypertension Current Visit: Yes Status: Acute Assessment & Plan: better control with addition of losartan, will continue Code(s): I10 - ESSENTIAL (PRIMARY) HYPERTENSION (3) Acute UTI Current Visit: Yes Status: Acute Assessment & Plan: on levaquin day 4 Code(s): N39.0 - URINARY TRACT INFECTION, SITE NOT SPECIFIED (4) Weakness Current Visit: Yes Status: Acute Code(s): R53.1 - WEAKNESS (5) Poor social situation Current Visit: Yes Status: Chronic Assessment & Plan: awaiting ECF placement, needs approval via insurance Code(s): Z65.9 - PROBLEM RELATED TO UNSPECIFIED PSYCHOSOCIAL CIRCUMSTANCES (6) Poor hygiene Current Visit: Yes Status: Chronic Code(s): R46.0 - VERY LOW LEVEL OF PERSONAL HYGIENE
[2021-02-11] MEDS: HYDROCODONE-ACETAMIN 10-325 MG PO PRN ×2 (09:46→13:48)
[2021-02-11] MEDS: ELIQUIS 2.5 MG TABLET PO SCH ×2 (09:46→21:34)
[2021-02-11] MEDS: PROTONIX 40 MG IV IV SCH (09:46)
[2021-02-11] MEDS: Cozaar 50 MG PO SCH (09:47)
[2021-02-11] MEDS: Cardizem 30 MG PO SCH ×4 (09:47→21:34)
[2021-02-11] MEDS: Coreg 6.25 MG PO SCH ×2 (09:47→21:34)
[2021-02-11] MEDS: NYSTOP POWDER 15 GM TP SCH (10:54)
[2021-02-11] MEDS: Levofloxacin 500MG/100ML D5W 500 MG/100 ML BAG IV SCH (14:41)
[2021-02-11] MEDS: Levofloxacin 500 MG Tablet PO SCH (17:19)
[2021-02-11] MEDS: OXYCODONE-ACETAMINOPHEN 10-325 PO PRN (17:19)
[2021-02-12] MEDS: NYSTOP POWDER 15 GM TP SCH ×3 (00:35→22:53)
[2021-02-12] MEDS: OXYCODONE-ACETAMINOPHEN 10-325 PO PRN ×3 (03:13→22:36)
[2021-02-12 06:18] LABS: Absolute Neutrophil Ct (ANC) 5.08 (1.4-6.9); BASOPHIL % 0.4 % (0.0-0.4); Basophil (Absolute #) 0.03 (0-0.4); Eosinophil % 5.3 % (0.00-5.0); Eosinophil (Absolute #) 0.42 (0-0.5); Hematocrit 31.6 % (35-47); Hemoglobin 9.3 gm/dl (12.0-16.0); Lymphocyte (Absolute #) 1.34 (1.0-4.6); Lymphocytes % 16.8 % (24.0-44.0); Mean Cell Volume 74.4 fl (78-100); Mean Corpuscular Hemoglobin 21.9 pg (26-32); Mean Corpuscular Hgb Concent. 29.4 g/dl (32-36); Mean Platelet Volume 9.3 fl (7.5-11.0); Monocyte (Absolute #) 1.11 (0.0-1.3); Monocytes % 13.9 % (0.0-12.0); Neutrophil % 63.6 % (36.0-66.0); Platelet Count 467 K/mm3 (150-450); Red Blood Count 4.25 M/mm3 (4.1-5.4); Red Cell Distribution Width 17.5 % (11.5-14.0)
[2021-02-12 06:48] LABS: ANION GAP 8.1 MEQ/L (5-15); BLOOD UREA NITROGEN 12 mg/dL (7-17); CHLORIDE 95 mmol/L (98-107); Calcium 8.3 mg/dL (8.4-10.2); Carbon Dioxide 32 mmol/L (22-30); Creatinine 1 0.66 mg/dL (0.52-1.04); EST GLOMERULAR FILTRATION RATE > 60.0 ML/MIN; Glucose 95 mg/dL (74-106); MAGNESIUM 1.7 mg/dL (1.6-2.3); Potassium 3.5 mmol/L (3.5-5.1); SODIUM 132 mmol/L (137-145)
[2021-02-12] MEDS: Coreg 6.25 MG PO SCH ×2 (08:38→22:37)
[2021-02-12] MEDS: Cozaar 50 MG PO SCH (08:38)
[2021-02-12] MEDS: Cardizem 30 MG PO SCH ×4 (08:38→22:36)
[2021-02-12] MEDS: ELIQUIS 2.5 MG TABLET PO SCH ×2 (08:38→22:35)
[2021-02-12] MEDS: Protonix 40MG Tablet PO SCH (08:38)
[2021-02-12] MEDS: Levofloxacin 500 MG Tablet PO SCH (08:55)
--- NOTE | 2021-02-12 13:26 | PCM.NOTE ---
Date and Time: 02/12/21 1323 Subjective Assessment: Patient up in chair . Is very MANZANITA,can hear if you speak loud into her left ear. Patient is yelling out but when asked if in in pain,she denies pain and said "why,am I screaming?" She eats if prompted. Objective Exam General Appearance: mild distress Neurologic Exam: alert, confusion, agitation Skin Exam: normal color, warm, dry, other (se pictures of decubiti) Wound Assessment: Skin/Wound Assessment Wound/Incision Assessment Start: 02/06/21 17:00 Text: Status: Active Freq: Q6H Protocol: Document 02/12/21 02:00 RG (Rec: 02/12/21 02:48 RG [id number]) Wound Photo Photo Taken Yes Comment: several pictures in chart Respiratory Exam: normal breath sounds Cardiovascular Exam: regular rate/rhythm Gastrointestinal/Abdomen Exam: soft (nontender) Extremity Exam: other (no pitting edema) Back Exam: other (see chart pics) OBJECTIVE DATA Vital Signs: Vital Signs - 24 hr Temp Pulse Resp BP Pulse Ox 02/12/21 08:00 99.0 F 81 19 188/97 93 L 02/12/21 04:00 97.9 F 74 20 180/79 91 L 02/12/21 00:00 99.5 F 69 12 123/65 93 L 02/11/21 20:00 98.0 F 74 16 155/72 92 L 02/11/21 16:00 98.0 F 76 19 139/68 90 L Pain Assessment - Last Documented Pain Intensity 6 Pain Scale [facility] Intake and Output: Intake & Output 02/10/21 02/11/21 02/12/21 02/13/21 11:59 11:59 11:59 11:59 Intake Total 705 200 360 Output Total 1700 700 800 Balance -995 500 -440 Weight 93.8 kg 92.9 kg 92.8 kg Lab Results: Lab Results-Last 24 Hours 02/11/21 02/11/21 02/11/21 Range/Units 05:30 16:39 21:39 WBC (4.0-10.5) K/mm3 RBC (4.1-5.4) M/mm3 Hgb (12.0-16.0) gm/dl Hct (35-47) % MCV (78-100) fl MCH (26-32) pg MCHC (32-36) g/dl RDW (11.5-14.0) % Plt Count (150-450) K/mm3 MPV (7.5-11.0) fl Gran % (36.0-66.0) % Eos # (Auto) (0-0.5) Absolute Lymphs (auto) (1.0-4.6) Absolute Monos (auto) (0.0-1.3) Lymphocytes % (24.0-44.0) % Monocytes % (0.0-12.0) % Eosinophils % (0.00-5.0) % Basophils % (0.0-0.4) % Absolute Granulocytes (1.4-6.9) Basophils # (0-0.4) Sodium (137-145) mmol/L Potassium (3.5-5.1) mmol/L Chloride (98-107) mmol/L Carbon Dioxide (22-30) mmol/L Anion Gap (5-15) MEQ/L BUN (7-17) mg/dL Creatinine (0.52-1.04) mg/dL Estimated GFR ML/MIN Glucose (74-106) mg/dL POC Glucometer 117 H 114 H (74 to 106) mg/dL Calcium (8.4-10.2) mg/dL Magnesium (1.6-2.3) mg/dL Slides for Path Review 02/12/21 02/12/21 02/12/21 Range/Units 05:40 05:40 07:05 WBC 8.0 (4.0-10.5) K/mm3 RBC 4.25 (4.1-5.4) M/mm3 Hgb 9.3 L (12.0-16.0) gm/dl Hct 31.6 L (35-47) % MCV 74.4 L (78-100) fl MCH 21.9 L (26-32) pg MCHC 29.4 L (32-36) g/dl RDW 17.5 H (11.5-14.0) % Plt Count 467 H (150-450) K/mm3 MPV 9.3 (7.5-11.0) fl Gran % 63.6 (36.0-66.0) % Eos # (Auto) 0.42 (0-0.5) Absolute Lymphs (auto) 1.34 (1.0-4.6) Absolute Monos (auto) 1.11 (0.0-1.3) Lymphocytes % 16.8 L (24.0-44.0) % Monocytes % 13.9 H (0.0-12.0) % Eosinophils % 5.3 H (0.00-5.0) % Basophils % 0.4 (0.0-0.4) % Absolute Granulocytes 5.08 (1.4-6.9) Basophils # 0.03 (0-0.4) Sodium 132 L (137-145) mmol/L Potassium 3.5 (3.5-5.1) mmol/L Chloride 95 L (98-107) mmol/L Carbon Dioxide 32 H (22-30) mmol/L Anion Gap 8.1 (5-15) MEQ/L BUN 12 (7-17) mg/dL Creatinine 0.66 (0.52-1.04) mg/dL Estimated GFR > 60.0 ML/MIN Glucose 95 (74-106) mg/dL POC Glucometer 101 (74 to 106) mg/dL Calcium 8.3 L (8.4-10.2) mg/dL Magnesium 1.7 (1.6-2.3) mg/dL Slides for Path Review 02/12/21 02/12/21 Range/Units 11:38 11:45 WBC (4.0-10.5) K/mm3 RBC (4.1-5.4) M/mm3 Hgb (12.0-16.0) gm/dl Hct (35-47) % MCV (78-100) fl MCH (26-32) pg MCHC (32-36) g/dl RDW (11.5-14.0) % Plt Count (150-450) K/mm3 MPV (7.5-11.0) fl Gran % (36.0-66.0) % Eos # (Auto) (0-0.5) Absolute Lymphs (auto) (1.0-4.6) Absolute Monos (auto) (0.0-1.3) Lymphocytes % (24.0-44.0) % Monocytes % (0.0-12.0) % Eosinophils % (0.00-5.0) % Basophils % (0.0-0.4) % Absolute Granulocytes (1.4-6.9) Basophils # (0-0.4) Sodium (137-145) mmol/L Potassium (3.5-5.1) mmol/L Chloride (98-107) mmol/L Carbon Dioxide (22-30) mmol/L Anion Gap (5-15) MEQ/L BUN (7-17) mg/dL Creatinine (0.52-1.04) mg/dL Estimated GFR ML/MIN Glucose (74-106) mg/dL POC Glucometer 175 H 116 H (74 to 106) mg/dL Calcium (8.4-10.2) mg/dL Magnesium (1.6-2.3) mg/dL Slides for Path Review Multi-Disciplinary Progress Notes: Multi-Disciplinary Progress Notes 02/12/21 12:27 Physical Therapy Note by Carol/lic.[id number],Amy PT. IN BED AND HAD JUST FINISHED W/BED BATH W/ ASSIST OF REGIONAL DIRECTOR OF ADMISSIONS. REGIONAL DIRECTOR OF ADMISSIONS REPORTED PT. ASSISTED MORE W/ BATH TODAY. COMMUNICATION STILL VERY DIFFICULT D/T MANZANITA AND DELAYED RESPONSE OF PT. PERFORMED SUPINE TO SIT W/ MOD-MAX ASSIST X 2. SIT TO STAND AND STAND PIVOT TRANSFER W/ MAX ASSIST X 2. PT. DID WEIGHT SHIFT BETTER AND INITIATION OF STEPS TO MOVE TO CHAIR WAS IMPROVED. PT. STILL CRIES OUT IN PN BUT DOESN'T VERBALIZE LOCATION OF DISCOMFORT. WILL CONT. P.T. 5X/WK UNTIL D/C. Initialized on 02/12/21 12:27 - END OF NOTE 02/11/21 15:34 Physical Therapy Note by Carol/[id number],Amy RX TIME [id number] PT. IN BED UPON P.T. ARRIVAL TO ROOM. NSG REPORTS NO ISSUES W/ A FIB. PT. VERY DIFFICULT TO COMMUNICATE W/ D/T MANZANITA AND DELAYED RESPONSE TO VERBAL COMMUNICATION. REPORTED NO C/O PN IN BED BUT CRIED OUT IN PN W/ SHIFTING R LE. PT. PERFORMED SUPINE TO SIT W/ MOD-MAX ASSIST X 2. AGAIN ABLE TO SIT ON SIDE OF BED W/ CGA-SBA. PT. VERY FEARFUL AND ANXIOUS ABOUT PN W/ MOBILITY. PERFORMED SIT TO STAND W/ MAX ASSIST X 2 W/ RW. PT. HAS DIFFICULTY FLEXING TRUNK TO ASSIST W/ TRANSFER. PT. REQUIRED MAX ASSIST X 2 TO PIVOT TO CHAIR. PT. NOT ABLE TO INITIATE SCOOTING BACK IN CHAIR TO SIT PROPERLY. USED SOFIA TO TRANSFER BACK TO BED FOR PT. AND STAFF SAFETY. PT. C/O SEVERE VAGINAL ITCHING AND NSG APPLIED NYSTATIN CREAM TO ADDRESS SEVERE YEAST INFECTION. WILL CONT. P.T. 5X/WK TO INCREASE TOLERANCE TO FUNCTIONAL MOBILITY AND STANDING. PLAN IS FOR D/C TO SNF NEXT WEEK. Initialized on 02/11/21 15:34 - END OF NOTE Assessment/Plan (1) Confusion Current Visit: Yes Status: Chronic Assessment & Plan: LTCF placement pending Code(s): R41.0 - DISORIENTATION, UNSPECIFIED (2) Weakness Current Visit: Yes Status: Acute Assessment & Plan: improving/PT Code(s): R53.1 - WEAKNESS (3) Acute UTI Current Visit: Yes Status: Resolved Code(s): N39.0 - URINARY TRACT INFECTION, SITE NOT SPECIFIED (4) Atrial fibrillation with rapid ventricular response Current Visit: Yes Status: Resolved Assessment & Plan: continue to monitor Code(s): I48.91 - UNSPECIFIED ATRIAL FIBRILLATION (5) Decubital ulcer Current Visit: Yes Status: Acute Assessment & Plan: pressure sores gluteal-continue wound care Code(s): L89.90 - PRESSURE ULCER OF UNSPECIFIED SITE, UNSPECIFIED STAGE
[2021-02-12] MEDS: HALDOL 1 MG PO PRN (13:33)
[2021-02-13] MEDS: HALDOL 1 MG PO PRN ×2 (03:47→13:32)
[2021-02-13] MEDS: Coreg 6.25 MG PO SCH ×2 (11:54→20:26)
[2021-02-13] MEDS: Levofloxacin 500 MG Tablet PO SCH (11:54)
[2021-02-13] MEDS: Protonix 40MG Tablet PO SCH (11:54)
[2021-02-13] MEDS: Cardizem 30 MG PO SCH ×4 (11:54→20:26)
[2021-02-13] MEDS: ELIQUIS 2.5 MG TABLET PO SCH ×2 (11:54→20:26)
[2021-02-13] MEDS: Cozaar 50 MG PO SCH (11:54)
[2021-02-13] MEDS: OXYCODONE-ACETAMINOPHEN 10-325 PO PRN (11:55)
[2021-02-13] MEDS: NYSTOP POWDER 15 GM TP SCH ×2 (12:03→20:26)
[2021-02-14] MEDS ORDERED: Coreg 6.25 MG PO SCH (09:11)
[2021-02-14] MEDS: ELIQUIS 2.5 MG TABLET PO SCH ×2 (09:33→23:17)
[2021-02-14] MEDS: Levofloxacin 500 MG Tablet PO SCH (09:34)
[2021-02-14] MEDS: Protonix 40MG Tablet PO SCH (09:34)
[2021-02-14] MEDS: Cozaar 50 MG PO SCH (09:34)
[2021-02-14] MEDS: Cardizem CD 180 MG PO SCH (09:36)
[2021-02-14] MEDS: NYSTOP POWDER 15 GM TP SCH (09:37)
[2021-02-14] MEDS: COREG 12.5 MG PO SCH ×2 (09:37→23:17)
[2021-02-14] MEDS: OXYCODONE-ACETAMINOPHEN 10-325 PO PRN (23:17)
[2021-02-15] MEDS: NYSTOP POWDER 15 GM TP SCH ×3 (03:49→23:46)
[2021-02-15] MEDS: OXYCODONE-ACETAMINOPHEN 10-325 PO PRN ×3 (05:02→17:59)
[2021-02-15] MEDS: COREG 12.5 MG PO SCH ×2 (08:39→23:45)
[2021-02-15] MEDS: Levofloxacin 500 MG Tablet PO SCH (08:39)
[2021-02-15] MEDS: ELIQUIS 2.5 MG TABLET PO SCH ×2 (08:39→23:45)
[2021-02-15] MEDS: Cardizem CD 180 MG PO SCH (08:40)
[2021-02-15] MEDS: Cozaar 50 MG PO SCH (08:40)
[2021-02-15] MEDS: Protonix 40MG Tablet PO SCH (08:40)
--- NOTE | 2021-02-15 08:59 | PCM.DS ---
Discharge Summary Date of Admission: 02/06/21 18:36 Admitting Physician: VASILE ROSALES Primary Care Provider: ANGIE GAMBLE Allergies Allergies diazepam [From Valium] Allergy (Mild, Verified 02/06/21 10:14) penicillin Allergy (Mild, Verified 02/06/21 10:14) Penicillins Allergy (Verified 02/06/21 10:14) Hospital Summary - Hospital Course Hospital Course: patient was admitted after being unable to get up out of her chair, had been sitting in soiled and urine soaked clothing for days, this is her second admission this year with terrible living conditions and personal hygiene, patient is very hard of hearing, requires max assist to ambulate due to deconditioning presumably from sitting in her chair. going to [facility] for rehab - Vitals & Intake/Output Vital Signs: Vital Signs Temperature 98.7 F 02/15/21 04:00 Pulse Rate 71 02/15/21 04:00 Respiratory Rate 18 02/15/21 04:00 Blood Pressure 159/79 02/15/21 04:00 O2 Sat by Pulse Oximetry 91 L 02/15/21 00:00 Intake & Output: Intake & Output 02/12/21 02/13/21 02/14/21 02/15/21 11:59 11:59 11:59 11:59 Intake Total 360 960 300 80 Output Total 863 164 2168 550 Balance -440 360 -750 -470 Weight 92.8 kg 92.8 kg 91.7 kg 91.1 kg - Lab Result Diagrams: 02/12/21 05:40 02/12/21 05:40 Lab Results-Last 24 Hrs: Lab Results-Last 24 Hours 02/14/21 02/14/21 02/15/21 Range/Units 12:15 16:45 08:32 POC Glucometer 143 H 118 H 145 H (74 to 106) mg/dL Micro Results-Entire Visit: Microbiology 02/06/21 19:00 Salmonella/Shigella Screen - Final Stool Stool Culture Result 1 - Final Campylobacter Culture - Final Campylobacter Result 1 - Final Escherichia coli Shiga Toxins EIA - Final Giardia lamblia (PCR) - Final Cryptosporidium Antigen - Final 02/06/21 13:00 Blood Culture Gram Stain - Final Blood Not Reportable Blood Culture - Final NO GROWTH 02/06/21 10:29 Blood Culture Gram Stain - Final Blood Not Reportable Blood Culture - Final NO GROWTH 02/06/21 10:34 Urine Culture - Final Catherized Escherichia Coli Proteus Mirabilis Accuchecks Date 02/15/21 Time 08:00 - Procedures and Test Procedures and Tests throughout Hospitalization: Therapy Orders & Screens 02/06/21 18:34 PT Eval & Treat ( Order) ONCE Reason for Eval:: weakness, poor living situation Diagnosis: acute UTI; generalized weakness; dehydration 02/09/21 02:15 EKG ROUTINE Comment: Diagnosis: acute UTI; generalized weakness; dehydration Discharge Exam General Appearance: no apparent distress, obese Neurologic Exam: alert, cooperative Ears, Nose, Throat Exam: other (very hard of hearing) Respiratory Exam: normal breath sounds, lungs clear, No respiratory distress Cardiovascular Exam: regular rate/rhythm, normal heart sounds Gastrointestinal/Abdomen Exam: soft, No tenderness, No mass Skin Exam: normal color, warm, dry Final Diagnosis/Problem List - Final Discharge Diagnosis/Problem (1) Atrial fibrillation with rapid ventricular response Current Visit: Yes Status: Resolved Code(s): I48.91 - UNSPECIFIED ATRIAL FIBRILLATION (2) Hypertension Current Visit: Yes Status: Acute Code(s): I10 - ESSENTIAL (PRIMARY) HYPERTENSION (3) Acute UTI Current Visit: Yes Status: Resolved Assessment & Plan: resolved, proteus and e coli fully treated with levaquin Code(s): N39.0 - URINARY TRACT INFECTION, SITE NOT SPECIFIED (4) Weakness Current Visit: Yes Status: Acute Code(s): R53.1 - WEAKNESS (5) Poor social situation Current Visit: Yes Status: Chronic Code(s): Z65.9 - PROBLEM RELATED TO U NSPECIFIED PSYCHOSOCIAL CIRCUMSTANCES (6) Poor hygiene Current Visit: Yes Status: Chronic Code(s): R46.0 - VERY LOW LEVEL OF PERSONAL HYGIENE - Discharge Disposition: DC TO ANY "OTHER" HALFWAY Condition: Stable Prescriptions: New Diltiazem HCl [Cardizem LA] 180 mg PO DAILY #30 Carvedilol 12.5 mg [Coreg 12.5 mg] 12.5 mg PO BID #60 tablet Nystatin Powder 15 gm [Nystop Powder 15 gm] 1 gm TP BID #1 applic Oxycodone / APAP 10/325 mg [Oxycodone-Acetaminophen 10-325] 1 tab PO Q4 HPRN PRN #30 tablet MDD 6 PRN Reason: Pain PANTOPRAZOLE 40 mg Tablet [Protonix 40MG Tablet] 40 mg PO DAILY #60 tab Continue Amlodipine Besylate 5 mg [Norvasc 5 mg] 5 mg PO DAILY Apixaban [Eliquis] 5 mg PO BID Atorvastatin Calcium [Lipitor 40Mg] 40 mg PO DAILY Furosemide 20 mg [Lasix 20 mg] 20 mg PO DAILY Metformin HCl 500 mg [Glucophage 500 MG] 500 mg PO BIDWM Discontinued Hydrocodone/Acetaminophen [[place] 10-325 Tablet] 1 each PO Q4-6HPRN PRN #6 tablet PRN Reason: Pain Losartan Potassium 100 mg PO DAILY Carvedilol 6.25 mg [Coreg 6.25 MG] 6.25 mg PO BID 30 Days tablet
[2021-02-16] MEDS: OXYCODONE-ACETAMINOPHEN 10-325 PO PRN ×4 (04:02→22:08)
--- NOTE | 2021-02-16 10:25 | PCM.DS ---
Discharge Summary Date of Admission: 02/06/21 18:36 Admitting Physician: VASILE ROSALES Primary Care Provider: ANGIE GAMLBE Allergies Allergies diazepam [From Valium] Allergy (Mild, Verified 02/06/21 10:14) penicillin Allergy (Mild, Verified 02/06/21 10:14) Penicillins Allergy (Verified 02/06/21 10:14) Hospital Summary - Hospital Course Hospital Course: see other notes, arrived with weakness in poor living situation, soiled and unkempt. agrees to rehab stay, had been in her chair for days. uti fully treated with levaquin x 5 days - Vitals & Intake/Output Vital Signs: Vital Signs Temperature 98.0 F 02/16/21 07:58 Pulse Rate 92 H 02/16/21 07:58 Respiratory Rate 18 02/16/21 07:58 Blood Pressure 134/69 02/16/21 07:58 O2 Sat by Pulse Oximetry 97 02/16/21 07:58 Intake & Output: Intake & Output 02/13/21 02/14/21 02/15/21 02/16/21 11:59 11:59 11:59 11:59 Intake Total 960 300 80 420 Output Total 600 1050 550 250 Balance 360 -750 -470 170 Weight 92.8 kg 91.7 kg 91.1 kg 89.6 kg - Lab Result Diagrams: 02/12/21 05:40 02/12/21 05:40 Lab Results-Last 24 Hrs: Lab Results-Last 24 Hours 02/15/21 02/15/21 02/15/21 Range/Units 11:44 12:17 16:52 POC Glucometer 120 H 120 H 135 H (74 to 106) mg/dL 02/15/21 02/16/21 Range/Units 21:46 07:23 POC Glucometer 134 H 109 H (74 to 106) mg/dL Micro Results-Entire Visit: Microbiology 02/06/21 19:00 Salmonella/Shigella Screen - Final Stool Stool Culture Result 1 - Final Campylobacter Culture - Final Campylobacter Result 1 - Final Escherichia coli Shiga Toxins EIA - Final Giardia lamblia (PCR) - Final Cryptosporidium Antigen - Final 02/06/21 13:00 Blood Culture Gram Stain - Final Blood Not Reportable Blood Culture - Final NO GROWTH 02/06/21 10:29 Blood Culture Gram Stain - Final Blood Not Reportable Blood Culture - Final NO GROWTH 02/06/21 10:34 Urine Culture - Final Catherized Escherichia Coli Proteus Mirabilis Accuchecks Date 02/15/21 Date 02/15/21 Time 22:15 Time 17:04 - Procedures and Test Procedures and Tests throughout Hospitalization: Therapy Orders & Screens 02/06/21 18:34 PT Eval & Treat ( Order) ONCE Reason for Eval:: weakness, poor living situation Diagnosis: acute UTI; generalized weakness; dehydration 02/09/21 02:15 EKG ROUTINE Comment: Diagnosis: acute UTI; generalized weakness; dehydration Discharge Exam General Appearance: no apparent distress, alert, obese, other (very hard of h earing) Neurologic Exam: alert, cooperative Respiratory Exam: normal breath sounds, lungs clear, No respiratory distress Cardiovascular Exam: regular rate/rhythm, normal heart sounds Gastrointestinal/Abdomen Exam: soft, No tenderness, No mass Skin Exam: other (see pictures, poor skin condition.) Final Diagnosis/Problem List - Final Discharge Diagnosis/Problem (1) Atrial fibrillation with rapid ventricular response Current Visit: Yes Status: Resolved Code(s): I48.91 - UNSPECIFIED ATRIAL FIBRILLATION (2) Hypertension Current Visit: Yes Status: Acute Code(s): I10 - ESSENTIAL (PRIMARY) HYPERTENSION (3) Acute UTI Current Visit: Yes Status: Resolved Code(s): N39.0 - URINARY TRACT INFECTION, SITE NOT SPECIFIED (4) Weakness Current Visit: Yes Status: Acute Code(s): R53.1 - WEAKNESS (5) Poor social situation Current Visit: Yes Status: Chronic Code(s): Z65.9 - PROBLEM RELATED TO UNSPECIFIED PSYCHOSOCIAL CIRCUMSTANCES (6) Poor hygiene Current Visit: Yes Status: Chronic Code(s): R46.0 - VERY LOW LEVEL OF PERSONAL HYGIENE - Discharge Disposition: DC TO ANY "OTHER" SKILLED NURSING Condition: Stable Prescriptions: New Diltiazem HCl [Cardizem LA] 180 mg PO DAILY #30 Carvedilol 12.5 mg [Coreg 12.5 mg] 12.5 mg PO BID #60 tablet Nystatin Powder 15 gm [Nystop Powder 15 gm] 1 gm TP BID #1 applic Oxycodone / APAP 10/325 mg [Oxycodone-Acetaminophen 10-325] 1 tab PO Q4HPRN PRN #30 tablet MDD 6 PRN Reason: Pain PANTOPRAZOLE 40 mg Tablet [Protonix 40MG Tablet] 40 mg PO DAILY #60 tab Continue Amlodipine Besylate 5 mg [Norvasc 5 mg] 5 mg PO DAILY Apixaban [Eliquis] 5 mg PO BID Atorvastatin Calcium [Lipitor 40Mg] 40 mg PO DAILY Furosemide 20 mg [Lasix 20 mg] 20 mg PO DAILY Metformin HCl 500 mg [Glucophage 500 MG] 500 mg PO BIDWM Discontinued Hydrocodone/Acetaminophen [[place] 10-325 Tablet] 1 each PO Q4-6HPRN PRN #6 tablet PRN Reason: Pain Losartan Potassium 100 mg PO DAILY Carvedilol 6.25 mg [Coreg 6.25 MG] 6.25 mg PO BID 30 Days tablet Follow up with: ANGIE GAMBLE [Primary Care Provider] -
[2021-02-16] MEDS: ELIQUIS 2.5 MG TABLET PO SCH ×3 (10:59→23:55)
[2021-02-16] MEDS: Cozaar 50 MG PO SCH (11:00)
[2021-02-16] MEDS: COREG 12.5 MG PO SCH ×3 (11:00→23:55)
[2021-02-16] MEDS: Cardizem CD 180 MG PO SCH (11:00)
[2021-02-16] MEDS: NYSTOP POWDER 15 GM TP SCH ×3 (11:00→22:14)
[2021-02-16] MEDS: Protonix 40MG Tablet PO SCH (11:00)
[2021-02-16] MEDS: Levofloxacin 500 MG Tablet PO SCH (11:01)
[2021-02-16] MEDS: HALDOL 1 MG PO PRN (13:06)
[2021-02-17] MEDS: HALDOL 1 MG PO PRN ×2 (03:06→13:13)
[2021-02-17] MEDS: OXYCODONE-ACETAMINOPHEN 10-325 PO PRN ×2 (03:10→12:44)
[2021-02-17 07:10] VITALS: BP 160/75; O2SAT 96
--- NOTE | 2021-02-17 08:34 | PCM.DS ---
Discharge Summary Date of Admission: 02/06/21 18:36 Admitting Physician: VASILE ROSALES Primary Care Provider: ANGIE GAMBLE Allergies Allergies diazepam [From Valium] Allergy (Mild, Verified 02/06/21 10:14) penicillin Allergy (Mild, Verified 02/06/21 10:14) Penicillins Allergy (Verified 02/06/21 10:14) Hospital Summary - Hospital Course Hospital Course: see other notes for full details, poor living situation and was unable to get out of her chair, soaked with urine and covered in feces in her chair that she hadn't been out of in days. treated for UTI, needs max assist to stand and requires rehab stay, unsafe to care for herself. - Vitals & Intake/Output Vital Signs: Vital Signs Temperature 98.4 F 02/17/21 07:09 Pulse Rate 90 02/17/21 07:09 Respiratory Rate 16 02/17/21 07:09 Blood Pressure 160/75 02/17/21 07:09 O2 Sat by Pulse Oximetry 96 02/17/21 07:09 Intake & Output: Intake & Output 02/14/21 02/15/21 02/16/21 02/17/21 11:59 11:59 11:59 11:59 Intake Total 300 80 420 120 Output Total 1050 550 250 425 Balance -750 -470 170 -305 Weight 91.7 kg 91.1 kg 89.6 kg 90.2 kg - Lab Result Diagrams: 02/12/21 05:40 02/12/21 05:40 Lab Results-Last 24 Hrs: Lab Results-Last 24 Hours 02/16/21 02/16/21 02/17/21 Range/Units 13:05 21:00 06:39 POC Glucometer 118 H TNP 95 (74 to 106) mg/dL Micro Results-Entire Visit: Microbiology 02/06/21 19:00 Salmonella/Shigella Screen - Final Stool Stool Culture Result 1 - Final Campylobacter Culture - Final Campylobacter Result 1 - Final Escherichia coli Shiga Toxins EIA - Final Giardia lamblia (PCR) - Final Cryptosporidium Antigen - Final 02/06/21 13:00 Blood Culture Gram Stain - Final Blood Not Reportable Blood Culture - Final NO GROWTH 02/06/21 10:29 Blood Culture Gram Stain - Final Blood Not Reportable Blood Culture - Final NO GROWTH 02/06/21 10:34 Urine Culture - Final Catherized Escherichia Coli Proteus Mirabilis Accuchecks Date 02/16/21 Date 02/16/21 Time 21:41 Time 13:05 - Procedures and Test Procedures and Tests throughout Hospitalization: Therapy Orders & Screens 02/06/21 18:34 PT Eval & Treat ( Order) ONCE Reason for Eval:: weakness, poor living situation Diagnosis: acute UTI; generalized weakness; dehydration 02/09/21 02:15 EKG ROUTINE Comment: Diagnosis: acute UTI; generalized weakness; dehydration Discharge Exam General Appearance: no apparent distress, obese, other (very hard of hearing) Respiratory Exam: normal breath sounds, lungs clear, No respiratory distress Cardiovascular Exam: regular rate/rhythm, normal heart sounds Gastrointestinal/Abdomen Exam: soft, No tenderness, No mass Skin Exam: normal color, warm, dry Final Diagnosis/Problem List - Final Discharge Diagnosis/Problem (1) Atrial fibrillation with rapid ventricular response Current Visit: Yes Status: Resolved Code(s): I48.91 - UNSPECIFIED ATRIAL FIBRILLATION (2) Hypertension Current Visit: Yes Status: Acute Code(s): I10 - ESSENTIAL (PRIMARY) HYPERTENSION (3) Acute UTI Current Visit: Yes Status: Resolved Code(s): N39.0 - URINARY TRACT INFECTION, SITE NOT SPECIFIED (4) Weakness Current Visit: Yes Status: Acute Code(s): R53.1 - WEAKNESS (5) Poor social situation Current Visit: Yes Status: Chronic Code(s): Z65.9 - PROBLEM RELATED TO UNSPECIFIED PSYCHOSOCIAL CIRCUMSTANCES (6) Poor hygiene Current Visit: Yes Status: Chronic Code(s): R46.0 - VERY LOW LEVEL OF PERSONAL HYGIENE - Discharge Disposition: DC TO ANY "OTHER" [facility] Condition: Stable Prescriptions: New Diltiazem HCl [Cardizem LA] 180 mg PO DAILY #30 Carvedilol 12.5 mg [Coreg 12.5 mg] 12.5 mg PO BID #60 tablet Nystatin Powder 15 gm [Nystop Powder 15 gm] 1 gm TP BID #1 applic Oxycodone / APAP 10/325 mg [Oxycodone-Acetaminophen 10-325] 1 tab PO Q4HPRN PRN #30 tablet MDD 6 PRN Reason: Pain PANTOPRAZOLE 40 mg Tablet [Protonix 40MG Tablet] 40 mg PO DAILY #60 tab Continue Amlodipine Besylate 5 mg [Norvasc 5 mg] 5 mg PO DAILY Apixaban [Eliquis] 5 mg PO BID Atorvastatin Calcium [Lipitor 40Mg] 40 mg PO DAILY Furosemide 20 mg [Lasix 20 mg] 20 mg PO DAILY Metformin HCl 500 mg [Glucophage 500 MG] 500 mg PO BIDWM Discontinued Hydrocodone/Acetaminophen [[place] 10-325 Tablet] 1 each PO Q4-6HPRN PRN #6 tablet PRN Reason: Pain Losartan Potassium 100 mg PO DAILY Carvedilol 6.25 mg [Coreg 6.25 MG] 6.25 mg PO BID 30 Days tablet Follow up with: ANGIE GAMBLE [Primary Care Provider] -
[2021-02-17] MEDS: Cozaar 50 MG PO SCH (10:15)
[2021-02-17] MEDS: Cardizem CD 180 MG PO SCH (10:15)
[2021-02-17] MEDS: Protonix 40MG Tablet PO SCH (10:15)
[2021-02-17] MEDS: NYSTOP POWDER 15 GM TP SCH (10:15)
[2021-02-17] MEDS: COREG 12.5 MG PO SCH (10:15)
[2021-02-17] MEDS: ELIQUIS 2.5 MG TABLET PO SCH (10:15)
[2021-02-17 16:57] VITALS: PULSE 92
== END 2021-02-17 17:27 | DRG 308 ==
LOC: ED 09:20 → MED SURG 14:30 → OBSVTOIN 18:36 → ICU 02-09 02:10
PROVIDERS: ADMIT Family Medicine; ATTEND Family Medicine
DX: I48.91 Unspecified atrial fibrillation (principal); U07.1 COVID-19; I10 Essential (primary) hypertension; I26.99 Other pulmonary embolism without acute cor pulmonale; N39.0 Urinary tract infection, site not specified; E11.9 Type 2 diabetes mellitus without complications; R53.1 Weakness; Z65.9 Problem related to unspecified psychosocial circumstances; R46.0 Very low level of personal hygiene; M79.604 Pain in right leg; E86.0 Dehydration; L89.152 Pressure ulcer of sacral region, stage 2; E78.00 Pure hypercholesterolemia, unspecified; I25.2 Old myocardial infarction; Z79.899 Other long term (current) drug therapy; Z79.01 Long term (current) use of anticoagulants; Z20.828 Contact with and (suspected) exposure to other viral communicable diseases
CPT/HCPCS: 0241U; 36000; 36415; 51702; 71045; 74176; 80048; 80053; 81001; 82550; 82947; 83036; 83605; 83690; 83735; 83880; 84134; 84484; 85025; 87040; 87045; 87046; 87077; 87086; 87186; 87328; 87329; 87493; 93005; 93268; 96360; 97161; 97530; 99285; J1956; A9270-GY